=== PATIENT | female | born 1985 | race Caucasian/White ===

== ENCOUNTER 2016-11-07 23:10 | Emergency (ER) | payer MEDICARE, OTHER ==
[2016-11-07 23:37] VITALS: BP 140/79; PULSE 104; RESP 20; TEMP 98.4
[2016-11-08 01:13] LABS: Basophils # (A) 0.1 k/uL (0-0.2); Basophils % (A) 1 %; CH 29.2; CHCM 32.5; Eosinophils # (A) 0.3 k/uL (0-0.7); Eosinophils % (A) 2 %; HCT 35.6 % (34.0-46.0); HDW 2.43; HGB 11.6 gm/dL (11.4-16.0); Luc # (Auto) 0.31; Luc % (Auto) 2; Lymphocytes # (A) 4.4 k/uL (1.0-4.8); Lymphocytes % (A) 31 %; MCH 29.5 pg (25.0-35.0); MCHC 32.6 g/dL (31.0-37.0); MCV 90.5 fL (80.0-100.0); Mean Platelet Volume 6.9; Monocytes # (A) 0.6 k/uL (0-1.0); Monocytes % (A) 4 %; Neutrophils # (A) 8.5 k/uL (1.3-7.7); Neutrophils % (A) 60 %; RBC 3.94 m/uL (3.80-5.40); RDW 13.4 % (11.5-15.5); WBC 14.1 k/uL (3.8-10.6); WBC (Perox) 14.78
[2016-11-08 01:23] LABS: Anion Gap 11 mmol/L; Blood Urea Nitrogen 4 mg/dL (7-17); Calcium 9.6 mg/dL (8.4-10.2); Carbon Dioxide 21 mmol/L (22-30); Chloride 109 mmol/L (98-107); Glucose 92 mg/dL (74-99); Non-African American GFR(MDRD) >60 (>60 ml/min/1.73 sqM); Potassium 3.8 mmol/L (3.5-5.1); Sodium 141 mmol/L (137-145)
[2016-11-08] MEDS ORDERED: fentaNYL (PF) 50 MCG/ML 2 ML AMP IV ONE (01:31)
[2016-11-08 01:50] LABS: Amorphous Sediment,Urine Rare /hpf; Appearance,Urine Cloudy (Clear); Bacteria,Urine Occasional /hpf; Bilirubin,Urine Negative (Negative); Glucose,Urine (UA) Negative (Negative); Ketones,Urine Negative (Negative); Leukocyte Esterase,Urine Negative (Negative); Mucus,Urine Rare /hpf; Nitrite,Urine Negative (Negative); PH, Urine 6.5 (5.0-8.0); Particle Count 5664; Protein,Urine Negative (Negative); RBC,Urine 1 /hpf (0-5); Specific Gravity,Urine 1.004 (1.001-1.035); Squamous Epithelial Cell,Urine 8 /hpf (0-4); UA Billing (MACRO vs. MICRO) MICRO; Urobilinogen,Urine <2.0 mg/dL (<2.0); WBC,Urine 4 /hpf (0-5)
--- NOTE | 2016-11-08 01:52 | ED ---
General Adult HPI - General Chief complaint: Abdominal Pain Stated complaint: Abd pain Source: patient Mode of arrival: ambulatory Limitations: no limitations - History of Present Illness Initial comments: 31-year-old female presented for evaluation of left lower pelvic pain. She states the pain started 3-4 days ago and has been progressively worsening. She has a history of kidney stones and states this does not feel anything similar. She denies any associated dysuria, vaginal bleeding, vaginal discharge, hematuria, increased urinary frequency. It is in her left lower pelvis with patient into her back although there is no CVA tenderness. She denies any associated nausea, vomiting, fevers, chills and denies any associated abdominal pain. - Related Data Home Medications Medication Instructions Recorded Confirmed Gabapentin [Neurontin] 1 tab PO DAILY 11/07/16 11/07/16 Topiramate [Topamax] 1 tab PO DAILY 11/07/16 11/07/16 Ziprasidone HCl [Geodon] 2 tab PO DAILY 11/07/16 11/07/16 traZODone HCL [TraZODone HCl] 300 mg PO DAILY 11/07/16 11/07/16 Allergies Allergy/AdvReac Type Severity Reaction Status Date / Time latex Allergy Rash/Hives Verified 11/07/16 23:35 Review of Systems ROS Statement: Those systems with pertinent positive or pertinent negative responses have been documented in the HPI. ROS Other: All systems not noted in ROS Statement are negative. Constitutional: Denies: fever, chills Eyes: Denies: eye pain, vision change ENT: Denies: ear pain, throat pain Respiratory: Denies: cough, dyspnea Cardiovascular: Denies: chest pain, palpitations Endocrine: Denies: fatigue, polydipsia Gastrointestinal: Reports: abdominal pain. Denies: nausea, vomiting, diarrhea, constipation, hematemesis Genitourinary: Denies: urgency, dysuria Musculoskeletal: Denies: back pain, arthralgia, myalgia Skin: Denies: rash, lesions Neurological: Denies: headache, weakness Psychiatric: Denies: anxiety, depression Past Medical History History of Any Multi-Drug Resistant Organisms: None Reported Past Psychological History: Anxiety, Depression Smoking Status: Current every day smoker Past Alcohol Use History: None Reported Past Drug Use History: None Reported General Exam Limitations: no limitations General appearance: alert, in no apparent distress Head exam: Present: atraumatic, normocephalic, normal inspection Eye exam: Present: normal appearance, PERRL, EOMI. Absent: scleral icterus, conjunctival injection, periorbital swelling ENT exam: Present: normal exam, mucous membranes moist Neck exam: Present: normal inspection. Absent: tenderness, meningismus, lymphadenopathy Respiratory exam: Present: normal lung sounds bilaterally. Absent: respiratory distress, wheezes, rales, rhonchi, stridor Cardiovascular Exam: Present: regular rate, normal rhythm, normal heart sounds. Absent: systolic murmur, diastolic murmur, rubs, gallop, clicks GI/Abdominal exam: Present: soft, tenderness, normal bowel sounds. Absent: distended, guarding, rebound, rigid Rectal exam: Present: deferred Extremities exam: Present: normal inspection, full ROM, normal capillary refill. Absent: tenderness, pedal edema, joint swelling, calf tenderness Back exam: Present: normal inspection Neurological exam: Present: alert, oriented X3, CN II-XII intact Psychiatric exam: Present: normal affect, normal mood Skin exam: Present: warm, dry, intact, normal color. Absent: rash Course Vital Signs 11/07/16 23:35 Temperature 98.4 F Pulse Rate 104 H Respiratory 20 Rate Blood Pressure 140/79 O2 Sat by Pulse 98 Oximetry Medical Decision Making - Medical Decision Making 31-year-old female presented for evaluation of left lower quadrant abdominal/pelvic pain. She states she's had this pain for the last few days and that it is just progressively been worsening. She has a history of kidney stones states this does not feel similar however she denies any history of ovarian cysts. On physical examination she has tenderness to palpation in the left lower pelvis. Abdomen is soft and non-peritoneal without signs of guarding , rigidity, or rebound. There is no CVA tenderness and no flank pain. Sensation is not consistent with ureterolithiasis and is likely due to ovarian cysts. Rule out ovarian torsion. We'll obtain urinalysis, labs, and provide pain control before making decision on ultrasound versus computed tomography scan. 0144: Prior to receiving pain control and reevaluation the patient stated that she wanted to leave. She was told that she only had a couple labs remaining in that she had pain control on the way. She stated "I've already waited long enough" and that it had been two hours and nothing had been done, despite being told labs were coming and as well as pain control. IV access was removed prior to her departure and she left without signing any forms. She was advised to return if her symptoms should worsen or persist. - Lab Data Result diagrams: 11/08/16 00:55 11/08/16 00:55 Lab Results 11/08/16 11/08/16 Range/Units 00:55 00:55 WBC 14.1 H (3.8-10.6) k/uL RBC 3.94 (3.80-5.40) m/uL Hgb 11.6 (11.4-16.0) gm/dL Hct 35.6 (34.0-46.0) % MCV 90.5 (80.0-100.0) fL MCH 29.5 (25.0-35.0) pg MCHC 32.6 (31.0-37.0) g/dL RDW 13.4 (11.5-15.5) % Plt Count 360 (150-450) k/uL Neutrophils % 60 % Lymphocytes % 31 % Monocytes % 4 % Eosinophils % 2 % Basophils % 1 % Neutrophils # 8.5 H (1.3-7.7) k/uL Lymphocytes # 4.4 (1.0-4.8) k/uL Monocytes # 0.6 (0-1.0) k/uL Eosinophils # 0.3 (0-0.7) k/uL Basophils # 0.1 (0-0.2) k/uL Sodium 141 (137-145) mmol/L Potassium 3.8 (3.5-5.1) mmol/L Chloride 109 H (98-107) mmol/L Carbon Dioxide 21 L (22-30) mmol/L Anion Gap 11 mmol/L BUN 4 L (7-17) mg/dL Creatinine 0.60 (0.52-1.04) mg/dL Est GFR (MDRD) Af Amer >60 (>60 ml/min/1.73 sqM) Est GFR (MDRD) Non-Af >60 (>60 ml/min/1.73 sqM) Glucose 92 (74-99) mg/dL Calcium 9.6 (8.4-10.2) mg/dL Lipase 56 (23-300) U/L Disposition Clinical Impression: Pelvic pain Disposition: Left Against Medical Advice Condition: Stable Time of Disposition: 01:51
== END 2016-11-08 02:00 | disposition left against medical advice (07) ==
LOC: EC 23:10
DX: R10.2 Pelvic and perineal pain (principal); F32.9 Major depressive disorder, single episode, unspecified; F41.9 Anxiety disorder, unspecified; F17.200 Nicotine dependence, unspecified, uncomplicated; Z79.899 Other long term (current) drug therapy; Z91.040 Latex allergy status; Z87.442 Personal history of urinary calculi
CPT/HCPCS: 36415; 80048; 81001; 81025; 83690; 85025; 99284

== ENCOUNTER 2016-11-10 11:26 | Emergency (ER) | payer MEDICARE, OTHER ==
[2016-11-10] MEDS ORDERED: MORPHINE SULFATE 4 MG/ML SYRINGE IVP STA (11:43)
[2016-11-10] MEDS ORDERED: SODIUM CHLORIDE 0.9% 1,000 ML IV ONE (11:45)
--- NOTE | 2016-11-10 11:45 | ED ---
Abdominal Pain HPI - General Chief Complaint: Abdominal Pain Stated Complaint: Abd pain Time Seen by Provider: 11/10/16 11:36 Source: patient Mode of arrival: ambulatory Limitations: no limitations - History of Present Illness Initial Comments: This is a 31-year-old female who presents emergency department for the second time for left pelvic pain. She states it started approximately a week ago. She states is also having some vaginal spotting. She admits to some mucousy discharge this is a little bit atypical for however no discomfort with sex. No fevers or chills however she does complain of hot flashes. No nausea or vomiting. The patient has chronic diarrhea because of IBS. She states that she went to her primary doctor who ordered an outpatient ultrasound however hasn 't not been able to get the pain under control so she can emergency department. - Related Data Home Medications Medication Instructions Recorded Confirmed Gabapentin [Neurontin] 600 mg PO QID 11/07/16 11/10/16 Topiramate [Topamax] 200 mg PO DAILY 11/07/16 11/10/16 Ziprasidone HCl [Geodon] 160 mg PO DAILY 11/07/16 11/10/16 Biotin 5 mg PO DAILY 11/10/16 11/10/16 Cholecalciferol [Vitamin D3] 2,000 unit PO DAILY 11/10/16 11/10/16 Cyclobenzaprine [Flexeril] 10 mg PO TID PRN 11/10/16 11/10/16 Ferrous Sulfate [Feosol] 325 mg PO DAILY 11/10/16 11/10/16 Ibuprofen [Motrin] 800 mg PO TID PRN 11/10/16 11/10/16 Lurasidone [Latuda] 40 mg PO DAILY 11/10/16 11/10/16 Magnesium Gluconate [Magonate] 500 mg PO DAILY 11/10/16 11/10/16 Multivitamins, Thera [Multivitamin 1 tab PO DAILY 11/10/16 11/10/16 (formulary)] Turmeric Root Extract [Turmeric] 500 mg PO DAILY 11/10/16 11/10/16 Zonisamide [Zonegran] 200 mg PO DAILY 11/10/16 11/10/16 traZODone HCL 300 mg PO DAILY 11/10/16 11/10/16 Previous Rx's Medication Instructions Recorded HYDROcodone/APAP 5-325MG [Savage 1 - 2 tab PO Q6HR PRN #15 tab 11/10/16 5-325] Allergies Allergy/AdvReac Type Severity Reaction Status Date / Time latex Allergy Rash/Hives Verified 11/10/16 12:05 shellfish derived [Shellfish] Allergy Anaphylaxis Verified 11/10/16 12:05 mirtazapine [From Remeron] AdvReac Hallucinati Verified 11/10/16 12:05 ons Review of Systems ROS Statement: Those systems with pertinent positive or pertinent negative responses have been documented in the HPI. ROS Other: All systems not noted in ROS Statement are negative. Past Medical History Past Medical History: No Reported History History of Any Multi-Drug Resistant Organisms: None Reported Past Surgical History: Orthopedic Surgery Past Psychological History: Anxiety, Depression, Schizoaffective Disorder Smoking Status: Current every day smoker Past Alcohol Use History: None Reported Past Drug Use History: None Reported General Exam - General Exam Comments Initial Comments: Constitutional: Awake alert Appears comfortable Head: Normocephalic atraumatic Eyes: no conjunctival injection No scleral icterus EOMI Neck: No JVD Supple Heart: Regular rate rhythm normal S1-S2 no murmurs Lungs: Clear to auscultation bilaterally No wheezing No rales Abdomen: Soft nondistended mild tenderness to palpation the left pelvic region without rebound or guarding Extremities: Non edematous DP pulses intact Radial pulses intact Neuro: A&Ox3 No focal neurologic deficits Psych: Appropriate mood and affect Limitations: no limitations Course Vital Signs 11/10/16 11:32 Temperature 97.5 F L Pulse Rate 103 H Respiratory 20 Rate Blood Pressure 120/70 O2 Sat by Pulse 99 Oximetry Medical Decision Making - Medical Decision Making Is a 31-year-old female given for pelvic pain. Ultrasound revealed what appears to be bilateral ovarian cysts however the radiologist commented on the right and stated that it appeared to be a hemorrhagic cyst. Patient's pain was improved. I gave her [employer] follow-up with her to give her Savage that she can use as needed. She is to return if she has worsening pain or any changing in her symptoms. The rest her labwork was reviewed and unremarkable. All questions were answered. - Lab Data Result diagrams: 11/10/16 12:00 11/10/16 12:00 Lab Results 05/09/17 05/09/17 05/09/17 Range/Units 12:00 12:00 12:00 WBC 11.7 H (3.8-10.6) k/uL RBC 4.24 (3.80-5.40) m/uL Hgb 12.4 (11.4-16.0) gm/dL Hct 37.8 (34.0-46.0) % MCV 89.2 (80.0-100.0) fL MCH 29.2 (25.0-35.0) pg MCHC 32.7 (31.0-37.0) g/dL RDW 13.7 (11.5-15.5) % Plt Count 404 (150-450) k/uL Neutrophils % 64 % Lymphocytes % 28 % Monocytes % 4 % Eosinophils % 2 % Basophils % 0 % Neutrophils # 7.4 (1.3-7.7) k/uL Lymphocytes # 3.3 (1.0-4.8) k/uL Monocytes # 0.5 (0-1.0) k/uL Eosinophils # 0.3 (0-0.7) k/uL Basophils # 0.1 (0-0.2) k/uL Sodium 142 (137-145) mmol/L Potassium 4.2 (3.5-5.1) mmol/L Chloride 112 H (98-107) mmol/L Carbon Dioxide 20 L (22-30) mmol/L Anion Gap 10 mmol/L BUN 5 L (7-17) mg/dL Creatinine 0.60 (0.52-1.04) mg/dL Est GFR (MDRD) Af Amer >60 (>60 ml/min/1.73 sqM) Est GFR (MDRD) Non-Af >60 (>60 ml/min/1.73 sqM) Glucose 125 H (74-99) mg/dL Calcium 9.5 (8.4-10.2) mg/dL Urine Color Urine Appearance (Clear) Urine pH (5.0-8.0) Ur Specific [place] (1.001-1.035) Urine Protein (Negative) Urine Glucose (UA) (Negative) Urine Ketones (Negative) Urine Blood (Negative) Urine Nitrite (Negative) Urine Bilirubin (Negative) Urine Urobilinogen (<2.0) mg/dL Ur Leukocyte Esterase (Negative) Urine WBC (0-5) /hpf Ur Squamous Epith Cells (0-4) /hpf Amorphous Sediment (None) /hpf Urine Bacteria (None) /hpf Urine HCG, Qual Not Detected (Not Detectd) 11/10/16 Range/Units 12:00 WBC (3.8-10.6) k/uL RBC (3.80-5.40) m/uL Hgb (11.4-16.0) gm/dL Hct (34.0-46.0) % MCV (80.0-100.0) fL MCH (25.0-35.0) pg MCHC (31.0-37.0) g/dL RDW (11.5-15.5) % Plt Count (150-450) k/uL Neutrophils % % Lymphocytes % % Monocytes % % Eosinophils % % Basophils % % Neutrophils # (1.3-7.7) k/uL Lymphocytes # (1.0-4.8) k/uL Monocytes # (0-1.0) k/uL Eosinophils # (0-0.7) k/uL Basophils # (0-0.2) k/uL Sodium (137-145) mmol/L Potassium (3.5-5.1) mmol/L Chloride (98-107) mmol/L Carbon Dioxide (22-30) mmol/L Anion Gap mmol/L BUN (7-17) mg/dL Creatinine (0.52-1.04) mg/dL Est GFR (MDRD) Af Amer (>60 ml/min/1.73 sqM) Est GFR (MDRD) Non-Af (>60 ml/min/1.73 sqM) Glucose (74-99) mg/dL Calcium (8.4-10.2) mg/dL Urine Color Yellow Urine Appearance Turbid H (Clear) Urine pH 7.5 (5.0-8.0) Ur Specific [place] 1.009 (1.001-1.035) Urine Protein Trace H (Negative) Urine Glucose (UA) Negative (Negative) Urine Ketones Negative (Negative) Urine Blood Negative (Negative) Urine Nitrite Negative (Negative) Urine Bilirubin Negative (Negative) Urine Urobilinogen <2.0 (<2.0) mg/dL Ur Leukocyte Esterase Negative (Negative) Urine WBC 10 H (0-5) /hpf Ur Squamous Epith Cells 7 H (0-4) /hpf Amorphous Sediment Moderate H (None) /hpf Urine Bacteria Rare H (None) /hpf Urine HCG, Qual (Not Detectd) Disposition Clinical Impression: Ovarian cyst Disposition: HOME SELF-CARE Condition: Stable Prescriptions: HYDROcodone/APAP 5-325MG [Savage 5-325] 1 - 2 tab PO Q6HR PRN #15 tab PRN Reason: Pain Referrals: Leilani Limon DO [Primary Care Provider] - 1-2 days Alba De Paz MD [STAFF PHYSICIAN] - 1-2 days
[2016-11-10 12:15] LABS: Basophils # (A) 0.1 k/uL (0-0.2); Basophils % (A) 0 %; CHCM 32.7; Eosinophils # (A) 0.3 k/uL (0-0.7); Eosinophils % (A) 2 %; HCT 37.8 % (34.0-46.0); HDW 2.48; HGB 12.4 gm/dL (11.4-16.0); Luc # (Auto) 0.23; Luc % (Auto) 2; Lymphocytes # (A) 3.3 k/uL (1.0-4.8); Lymphocytes % (A) 28 %; MCH 29.2 pg (25.0-35.0); MCHC 32.7 g/dL (31.0-37.0); MCV 89.2 fL (80.0-100.0); Mean Platelet Volume 6.7; Monocytes # (A) 0.5 k/uL (0-1.0); Monocytes % (A) 4 %; Neutrophils # (A) 7.4 k/uL (1.3-7.7); Neutrophils % (A) 64 %; RBC 4.24 m/uL (3.80-5.40); RDW 13.7 % (11.5-15.5); WBC 11.7 k/uL (3.8-10.6); WBC (Perox) 12.07
[2016-11-10 12:24] LABS: Amorphous Sediment,Urine Moderate /hpf; Appearance,Urine Turbid (Clear); Bacteria,Urine Rare /hpf; Bilirubin,Urine Negative (Negative); Glucose,Urine (UA) Negative (Negative); Ketones,Urine Negative (Negative); Leukocyte Esterase,Urine Negative (Negative); Nitrite,Urine Negative (Negative); PH, Urine 7.5 (5.0-8.0); Particle Count 25620; Protein,Urine Trace (Negative); Specific Gravity,Urine 1.009 (1.001-1.035); Squamous Epithelial Cell,Urine 7 /hpf (0-4); UA Billing (MACRO vs. MICRO) MICRO; Urobilinogen,Urine <2.0 mg/dL (<2.0); WBC,Urine 10 /hpf (0-5)
[2016-11-10 12:28] LABS: Anion Gap 10 mmol/L; Calcium 9.5 mg/dL (8.4-10.2); Carbon Dioxide 20 mmol/L (22-30); Chloride 112 mmol/L (98-107); Glucose 125 mg/dL (74-99); Non-African American GFR(MDRD) >60 (>60 ml/min/1.73 sqM); Sodium 142 mmol/L (137-145)
[2016-11-10 12:31] LABS: Blood Urea Nitrogen 5 mg/dL (7-17); Potassium 4.2 mmol/L (3.5-5.1)
--- NOTE | 2016-11-10 12:52 | US ---
EXAMINATION TYPE: US transvaginal DATE OF EXAM: 11/10/2016 12:38 PM COMPARISON: NONE CLINICAL HISTORY: L pelvic pain. Left pelvic pain, IUD placement (Mirena) 07/20 TECHNIQUE: Transvaginal (TV) Date of LMP: unknown EXAM MEASUREMENTS: Uterus: 6.6 x 2.5 x 3.8 cm Endometrial Stripe: 0.5 cm Right Ovary: 3.7 x 3.2 x 3.1 cm Left Ovary: 4.2 x 2.7 x 3.8 cm Echogenic focus along the endometrium compatible with intrauterine contraceptive device 1. Uterus: Anteverted small amount of fluid within cervical canal 2. Endometrium: IUD visualized 3. Right Ovary: complex lesion = 3.0 x 2.6 x 2.5cm 4. Left Ovary: complex lesion = 3.2 x 2.2 x 2.8cm Spectral, color and waveform doppler imaging shows good arterial and venous flow within the ovaries ; there is no evidence for ovarian torsion. 5. Bilateral Adnexa: appears wnl 6. Posterior cul-de-sac: wnl Grayscale, color Doppler, spectral Doppler imaging performed of the ovaries. IMPRESSION: Complex right ovarian cyst may represent hemorrhagic cyst, consider follow-up. Intrauteri ne contraceptive device present along the endometrium.
[2016-11-10] MEDS ORDERED: HYDROcodone/APAP 5-325MG 1 EACH TAB PO STA (12:58)
[2016-11-10 13:09] VITALS: BP 103/68; PULSE 98; RESP 18; TEMP 98.1
== END 2016-11-10 13:08 | disposition home or self-care (01) ==
LOC: EC 11:26
DX: N83.201 Unspecified ovarian cyst, right side (principal); F25.9 Schizoaffective disorder, unspecified; F32.9 Major depressive disorder, single episode, unspecified; F41.9 Anxiety disorder, unspecified; F17.200 Nicotine dependence, unspecified, uncomplicated; Z79.899 Other long term (current) drug therapy; Z88.8 Allergy status to other drugs, medicaments and biological substances; Z91.040 Latex allergy status; Z91.013 Allergy to seafood
CPT/HCPCS: 36415; 80048; 85025; 81001; 81025; 93975; 76830; 99284; 96374; 96361; J2270

== ENCOUNTER 2017-01-01 10:44 | Day surgery (SDC) | payer MEDICARE, OTHER ==
[2016-12-31 09:09] VITALS: BMI 32.1
[~2017-01-01 10:44] MED LIST: LACTATED RINGERS 1,000 ML IV SCH
[2017-01-01 12:39] VITALS: TEMP 97.7
[2017-01-01] MEDS ORDERED: PROPOFOL 10 MG/ML 20 ML VIAL IV ONE (12:56)
--- NOTE | 2017-01-01 13:24 | P.PCN ---
Date of Procedure: 01/01/17 Preoperative Diagnosis: Postoperative Diagnosis: Procedure(s) Performed: BRIEF HISTORY: Patient is a 31-year-old pleasant white female, scheduled for an elective colonoscopy as a part of value should of chronic diarrhea for the last several years duration. She is been having 30-40 small frequent bowel movements with severe rectal urgency and frequency lately. PROCEDURE PERFORMED: Colonoscopy with biopsy. PREOPERATIVE DIAGNOSIS: Chronic diarrhea of several months duration. IV sedation per Anesthesia. PROCEDURE: After informed consent was obtained, the patient, was brought into the endoscopy unit. IV sedation was administered by Anesthesia under continuous monitoring. Digital rectal examination was normal. Initially the Olympus CF- 160 flexible video colonoscope was then inserted in the rectum, gradually advanced into the cecum without any difficulty. Careful examination was performed as the scope was gradually being withdrawn. Ileocecal valve and the appendiceal orifice were visualized and appeared normal. Terminal ileum was intubated and 20 cm visualized and appeared normal. Random biopsies were done from this area. Prep was excellent. Mucosa of the cecum, ascending colon, transverse colon, descending colon, sigmoid colon, and rectum appeared normal. Random Garcia's biopsies were done from the ascending and descending colon to rule out microscopic/collagenous colitis. Retroflexion was performed in the rectum and no lesions were seen. The patient tolerated the procedure well. IMPRESSION: Normal-appearing colon from rectum to cecum with no evidence of colitis or colorectal neoplasia . Normal-appearing terminal ileum. RECOMMENDATIONS: Findings of this examination were discussed with the patient as well as her family. She was advised to follow with the biopsy results. She' ll be seen in office in 2-3 weeks.. Implants: Indications for Procedure: Operative Findings: Description of Procedure:
[2017-01-01 13:38] VITALS: RESP 18
[2017-01-01 14:05] VITALS: PULSE 82
[2017-01-01 14:23] VITALS: BP 106/62
== END 2017-01-01 14:36 | disposition home or self-care (01) ==
LOC: ORWHC2ENDO 10:44
PROVIDERS: ATTEND Internal Medicine Gastroenterology
DX: K52.839 Microscopic colitis, unspecified (principal); R19.4 Change in bowel habit; K58.0 Irritable bowel syndrome with diarrhea; F17.200 Nicotine dependence, unspecified, uncomplicated; Z79.1 Long term (current) use of non-steroidal anti-inflammatories (NSAID); Z79.899 Other long term (current) drug therapy; Z91.040 Latex allergy status; Z91.09 Other allergy status, other than to drugs and biological substances; Z88.8 Allergy status to other drugs, medicaments and biological substances; Z91.013 Allergy to seafood
CPT/HCPCS: 81025; 88305; 88313; 45380; J2704

== ENCOUNTER 2019-04-26 21:32 | Emergency (ER) | payer MEDICARE, OTHER ==
[2019-04-26 21:38] VITALS: BP 123/84; PULSE 102; RESP 18; TEMP 98.1
[2019-04-26] MEDS ORDERED: predniSONE 20 MG TAB PO STA (21:50)
[2019-04-26] MEDS ORDERED: AMOXIC-POT CLAV 875MG STARTER 2 EACH TABLET PO STA (21:50)
--- NOTE | 2019-04-26 21:51 | ED ---
URI HPI - General Chief Complaint: Upper Respiratory Infection Stated Complaint: poss sinus infection Time Seen by Provider: 04/26/19 21:46 Source: patient, RN notes reviewed Mode of arrival: ambulatory Limitations: no limitations - History of Present Illness Initial Comments: 33-year-old female presents emergency from chief complaint of sinus congestion. Patient states she has been sick for last 4-5 days. Patient registered shot by PCP and states that she was better for a day but worsened after that. Patient reports facial pressure, worse when she leans over, purulent nasal drainage and a cough which is productive in the morning no chest pain no shortness breath at this time. She's been taking [id number] medications minimal relief. - Related Data Home Medications Medication Instructions Recorded Confirmed Gabapentin [Neurontin] 600 mg PO QID 11/07/16 06/23/17 Topiramate [Topamax] 200 mg PO HS 11/07/16 06/23/17 Cholecalciferol [Vitamin D3] 4,000 unit PO DAILY 11/10/16 06/23/17 Cyclobenzaprine [Flexeril] 10 mg PO TID PRN 11/10/16 06/23/17 Ferrous Sulfate [Feosol] 325 mg PO BID 11/10/16 06/23/17 Magnesium Gluconate [Magonate] 500 mg PO BID 11/10/16 06/23/17 Multivitamins, Thera [Multivitamin 1 tab PO BID 11/10/16 06/23/17 (formulary)] Turmeric Root Extract [Turmeric] 1,000 mg PO DAILY 11/10/16 06/23/17 Zonisamide [Zonegran] 200 mg PO HS 11/10/16 06/23/17 traZODone HCL 300 mg PO HS 11/10/16 06/23/17 Meloxicam [Mobic] 7.5 mg PO BID 12/31/16 06/23/17 Biotin 10,000 mcg PO DAILY 06/09/17 06/23/17 Lurasidone HCl [Latuda] 60 mg PO HS 06/09/17 06/23/17 Budesonide [Budesonide EC] 6 mg PO DAILY 06/17/17 06/23/17 DULoxetine HCL [Cymbalta] 30 mg PO DAILY 06/17/17 06/23/17 Morphine Sulfate 15 mg PO TID 06/17/17 06/23/17 OXcarbazepine [Trileptal] 300 mg PO BID 06/17/17 06/23/17 HYDROcodone/APAP 7.5-325MG [[place] 1 tab PO Q4H PRN 06/23/17 06/23/17 7.5] Previous Rx's Medication Instructions Recorded Ondansetron Odt [Zofran ODT] 4 mg PO Q8HR PRN #20 tab 06/09/17 Docusate [Colace] 100 mg PO BID #20 capsule 06/18/17 Amoxicillin/Potassium Clav 1 tab PO Q12HR #20 tab 04/26/19 [Augmentin 875-125 Tablet] predniSONE 50 mg PO DAILY #5 tab 04/26/19 Allergies Allergy/AdvReac Type Severity Reaction Status Date / Time Iodinated Contrast Media Allergy Anaphylaxis Verified 06/23/17 12:13 [Iodinated Contrast Media - Oral and] latex Allergy Rash/Hives Verified 06/23/17 12:13 shellfish derived [Shellfish] Allergy Anaphylaxis Verified 06/23/17 12:13 mirtazapine [From Remeron] AdvReac Hallucinati Verified 06/23/17 12:13 ons Review of Systems ROS Statement: Those systems with pertinent positive or pertinent negative responses have been documented in the HPI. ROS Other: All systems not noted in ROS Statement are negative. Past Medical History Past Medical History: Osteoarthritis (OA) Additional Past Medical History / Comment(s): IBS, colitis. 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 History of Any Multi-Drug Resistant Organisms: None Reported Past Surgical History: Cholecystectomy, Orthopedic Surgery Additional Past Surgical History / Comment(s): ORIF RT HAND. MIRENA INSERTION, pain procedures. Past Anesthesia/Blood Transfusion Reactions: No Reported Reaction Past Psychological History: Anxiety, Depression, Schizoaffective Disorder Smoking Status: Current every day smoker Past Alcohol Use History: Occasional Past Drug Use History: None Reported - Past Family History Mother Family Medical History: Unable to Obtain Additional Family Medical History / Comment(s): Patient states does not any history of her family. General Exam Limitations: no limitations General appearance: alert, in no apparent distress Head exam: Present: atraumatic, normocephalic, normal inspection Eye exam: Present: normal appearance, PERRL, EOMI. Absent: scleral icterus, conjunctival injection, periorbital swelling ENT exam: Present: mucous membranes moist, TM's normal bilaterally. Absent: normal exam (Bilateral maxillary sinus tenderness), normal oropharynx (Postnasal drainage) Neck exam: Present: normal inspection, full ROM. Absent: tenderness, meningismus, lymphadenopathy Respiratory exam: Present: normal lung sounds bilaterally. Absent: respiratory distress, wheezes, rales, rhonchi, stridor Cardiovascular Exam: Present: regular rate, normal rhythm, normal heart sounds. Absent: systolic murmur, diastolic murmur, rubs, gallop, clicks GI/Abdominal exam: Present: soft, normal bowel sounds. Absent: distended, tenderness, guarding, rebound, rigid Course Vital Signs 04/26/19 21:35 Temperature 98.1 F Pulse Rate 102 H Respiratory 18 Rate Blood Pressure 123/84 O2 Sat by Pulse 97 Oximetry Medical Decision Making - Medical Decision Making 33-year-old female has acute sinusitis was treated with Augmentin, prednisone. Patient we discharged return parameters were discussed [id number] medication discussed. Disposition Clinical Impression: Sinusitis Disposition: HOME SELF-CARE Condition: Stable Instructions (If sedation given, give patient instructions): Upper Respiratory Infection (ED) Additional Instructions: Please return to the Emergency Department if symptoms worsen or any other concerns. Prescriptions: Amoxicillin/Potassium Clav [Augmentin 875-125 Tablet] 1 tab PO Q12HR #20 tab predniSONE 50 mg PO DAILY #5 tab Is patient prescribed a controlled substance at d/c from ED?: No Referrals: Leilani Limon DO [Primary Care Provider] - 1-2 days Time of Disposition: 21:51
== END 2019-04-26 22:05 | disposition home or self-care (01) ==
LOC: EC 21:32
DX: J01.90 Acute sinusitis, unspecified (principal); M19.90 Unspecified osteoarthritis, unspecified site; F32.9 Major depressive disorder, single episode, unspecified; F41.9 Anxiety disorder, unspecified; F25.9 Schizoaffective disorder, unspecified; F17.200 Nicotine dependence, unspecified, uncomplicated; Z88.8 Allergy status to other drugs, medicaments and biological substances; Z91.013 Allergy to seafood; Z91.040 Latex allergy status; Z91.041 Radiographic dye allergy status; Z79.1 Long term (current) use of non-steroidal anti-inflammatories (NSAID); Z79.52 Long term (current) use of systemic steroids; Z79.891 Long term (current) use of opiate analgesic; Z79.899 Other long term (current) drug therapy
CPT/HCPCS: 99283; J7512

== ENCOUNTER 2021-04-11 10:39 | Emergency (ER) | payer MEDICARE, OTHER ==
[2021-04-11 10:44] VITALS: RESP 20; TEMP 98.1
--- NOTE | 2021-04-11 11:45 | ED ---
General Adult HPI - General Chief complaint: Nausea/Vomiting/Diarrhea Stated complaint: vomiting/headache/kidney stone Time Seen by Provider: 04/11/21 11:29 Source: patient Mode of arrival: ambulatory Limitations: no limitations - History of Present Illness Initial comments: Patient is a 35 -year-old female presenting the ED every pain per kidney stone t hat has been present for 2 weeks. Patient states that for the past 2 weeks patient has been nauseous vomiting and severe pain bilaterally with flank tenderness. Patient states that she had scan that showed kidney stones one week prior at [place]. Patient is describes extreme discomfort. An voices not being able to keep down any of her at home pain medications for the pain. Patient states she has not been able to urinate since yesterday morning. Patient denies any fever, headache. - Related Data Home Medications Medication Instructions Recorded Confirmed Gabapentin [Neurontin] 600 mg PO QID 11/07/16 06/23/17 Topiramate [Topamax] 200 mg PO HS 11/07/16 06/23/17 Cholecalciferol [Vitamin D3] 4,000 unit PO DAILY 11/10/16 06/23/17 Cyclobenzaprine [Flexeril] 10 mg PO TID PRN 11/10/16 06/23/17 Ferrous Sulfate [Feosol] 325 mg PO BID 11/10/16 06/23/17 Magnesium Gluconate [Magonate] 500 mg PO BID 11/10/16 06/23/17 Multivitamins, Thera [Multivitamin 1 tab PO BID 11/10/16 06/23/17 (formulary)] Turmeric Root Extract [Turmeric] 1,000 mg PO DAILY 11/10/16 06/23/17 Zonisamide [Zonegran] 200 mg PO HS 11/10/16 06/23/17 traZODone HCL 300 mg PO HS 11/10/16 06/23/17 Meloxicam [Mobic] 7.5 mg PO BID 12/31/16 06/23/17 Biotin 10,000 mcg PO DAILY 06/09/17 06/23/17 Lurasidone HCl [Latuda] 60 mg PO HS 06/09/17 06/23/17 Budesonide [Budesonide EC] 6 mg PO DAILY 06/17/17 06/23/17 DULoxetine HCL [Cymbalta] 30 mg PO DAILY 06/17/17 06/23/17 Morphine Sulfate 15 mg PO TID 06/17/17 06/23/17 OXcarbazepine [Trileptal] 300 mg PO BID 06/17/17 06/23/17 HYDROcodone/APAP 7.5-325MG [Lynco 1 tab PO Q4H PRN 06/23/17 06/23/17 7.5] Previous Rx's Medication Instructions Recorded Ondansetron Odt [Zofran ODT] 4 mg PO Q8HR PRN #20 tab 06/09/17 Docusate [Colace] 100 mg PO BID #20 capsule 06/18/17 Amoxicillin/Potassium Clav 1 tab PO Q12HR #20 tab 04/26/19 [Augmentin 875-125 Tablet] predniSONE 50 mg PO DAILY #5 tab 04/26/19 Allergies Allergy/AdvReac Type Severity Reaction Status Date / Time Iodinated Contrast Media Allergy Anaphylaxis Verified 04/11/21 10:43 [Iodinated Contrast Media - Oral and] latex Allergy Rash/Hives Verified 04/11/21 10:43 shellfish derived [Shellfish] Allergy Anaphylaxis Verified 04/11/21 10:43 mirtazapine [From Remeron] AdvReac Hallucinati Verified 04/11/21 10:43 ons Review of Systems ROS Statement: Those systems with pertinent positive or pertinent negative responses have been documented in the HPI. ROS Other: All systems not noted in ROS Statement are negative. Past Medical History Past Medical History: Osteoarthritis (OA) Additional Past Medical History / Comment(s): IBS, colitis. 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 History of Any Multi-Drug Resistant Organisms: None Reported Past Surgical History: Cholecystectomy, Orthopedic Surgery Additional Past Surgical History / Comment(s): ORIF RT HAND. MIRENA INSERTION, pain procedures. Past Anesthesia/Blood Transfusion Reactions: No Reported Reaction Past Psychological History: Anxiety, Depression, Schizoaffective Disorder Smoking Status: Former smoker Past Alcohol Use History: Occasional Past Drug Use History: Marijuana - Past Family History Mother Family Medical History: Unable to Obtain Additional Family Medical History / Comment(s): Patient states does not any history of her family. General Exam Limitations: no limitations General appearance: alert, in distress (pain) Respiratory exam: Present: normal lung sounds bilaterally. Absent: respiratory distress, wheezes, rales, rhonchi, stridor Cardiovascular Exam: Present: regular rate, normal rhythm, normal heart sounds. Absent: systolic murmur, diastolic murmur, rubs, gallop, clicks GI/Abdominal exam: Present: soft, normal bowel sounds. Absent: distended, tenderness, guarding, rebound, rigid Back exam: Present: CVA tenderness (R), CVA tenderness (L) Skin exam: Present: warm, dry, intact, normal color. Absent: rash Course Vital Signs 04/11/21 04/11/21 10:40 12:58 Temperature 98.1 F Pulse Rate 95 90 Respiratory 20 20 Rate Blood Pressure 121/79 114/77 O2 Sat by Pulse 100 98 Oximetry Medical Decision Making - Medical Decision Making CT is unremarkable patient presented for bilateral flank. There is no obvious reason for this flank pain. Patient discharged in stable condition return parameters were discussed. - Lab Data Result diagrams: 04/11/21 12:29 04/11/21 12:29 Lab Results 04/11/21 04/11/21 04/11/21 Range/Units 12:29 12:29 12:29 WBC 13.7 H (3.8-10.6) k/uL RBC 4.82 (3.80-5.40) m/uL Hgb 12.7 (11.4-16.0) gm/dL Hct 39.8 (34.0-46.0) % MCV 82.6 (80.0-100.0) fL MCH 26.4 (25.0-35.0) pg MCHC 32.0 (31.0-37.0) g/dL RDW 15.1 (11.5-15.5) % Plt Count 450 (150-450) k/uL MPV 6.9 Neutrophils % 62 % Lymphocytes % 31 % Monocytes % 4 % Eosinophils % 2 % Basophils % 0 % Neutrophils # 8.4 H (1.3-7.7) k/uL Lymphocytes # 4.2 (1.0-4.8) k/uL Monocytes # 0.6 (0-1.0) k/uL Eosinophils # 0.3 (0-0.7) k/uL Basophils # 0.1 (0-0.2) k/uL Sodium 137 (137-145) mmol/L Potassium 4.3 (3.5-5.1) mmol/L Chloride 103 (98-107) mmol/L Carbon Dioxide 28 (22-30) mmol/L Anion Gap 6 mmol/L BUN 5 L (7-17) mg/dL Creatinine 0.42 L (0.52-1.04) mg/dL Est GFR (CKD-EPI)AfAm >90 (>60 ml/min/1.73 sqM) Est GFR (CKD-EPI)NonAf >90 (>60 ml/min/1.73 sqM) Glucose 103 H (74-99) mg/dL Plasma Lactic Acid Martín 0.8 (0.7-2.0) mmol/L Calcium 9.9 (8.4-10.2) mg/dL Total Bilirubin 0.4 (0.2-1.3) mg/dL AST 35 (14-36) U/L ALT 56 H (4-34) U/L Alkaline Phosphatase 80 (38-126) U/L Total Protein 7.1 (6.3-8.2) g/dL Albumin 3.9 (3.5-5.0) g/dL Amylase 51 (30-110) U/L Lipase 26 (23-300) U/L Urine Color Urine Appearance (Clear) Urine pH (5.0-8.0) Ur Specific Isabel (1.001-1.035) Urine Protein (Negative) Urine Glucose (UA) (Negative) Urine Ketones (Negative) Urine Blood (Negative) Urine Nitrite (Negative) Urine Bilirubin (Negative) Urine Urobilinogen (<2.0) mg/dL Ur Leukocyte Esterase (Negative) Urine HCG, Qual (Not Detectd) 04/11/21 04/11/21 Range/Units 12:50 12:50 WBC (3.8-10.6) k/uL RBC (3.80-5.40) m/uL Hgb (11.4-16.0) gm/dL Hct (34.0-46.0) % MCV (80.0-100.0) fL MCH (25.0-35.0) pg MCHC (31.0-37.0) g/dL RDW (11.5-15.5) % Plt Count (150-450) k/uL MPV Neutrophils % % Lymphocytes % % Monocytes % % Eosinophils % % Basophils % % Neutrophils # (1.3-7.7) k/uL Lymphocytes # (1.0-4.8) k/uL Monocytes # (0-1.0) k/uL Eosinophils # (0-0.7) k/uL Basophils # (0-0.2) k/uL Sodium (137-145) mmol/L Potassium (3.5-5.1) mmol/L Chloride (98-107) mmol/L Carbon Dioxide (22-30) mmol/L Anion Gap mmol/L BUN (7-17) mg/dL Creatinine (0.52-1.04) mg/dL Est GFR (CKD-EPI)AfAm (>60 ml/min/1.73 sqM) Est GFR (CKD-EPI)NonAf (>60 ml/min/1.73 sqM) Glucose (74-99) mg/dL Plasma Lactic Acid Martín (0.7-2.0) mmol/L Calcium (8.4-10.2) mg/dL Total Bilirubin (0.2-1.3) mg/dL AST (14-36) U/L ALT (4-34) U/L Alkaline Phosphatase (38-126) U/L Total Protein (6.3-8.2) g/dL Albumin (3.5-5.0) g/dL Amylase (30-110) U/L Lipase (23-300) U/L Urine Color Light Yellow Urine Appearance Clear (Clear) Urine pH 7.5 (5.0-8.0) Ur Specific Isabel 1.005 (1.001-1.035) Urine Protein Negative (Negative) Urine Glucose (UA) Negative (Negative) Urine Ketones Negative (Negative) Urine Blood Negative (Negative) Urine Nitrite Negative (Negative) Urine Bilirubin Negative (Negative) Urine Urobilinogen <2.0 (<2.0) mg/dL Ur Leukocyte Esterase Negative (Negative) Urine HCG, Qual Not Detected (Not Detectd) Disposition Clinical Impression: Flank pain, Nausea & vomiting Disposition: HOME SELF-CARE Condition: Stable Instructions (If sedation given, give patient instructions): Acute Nausea and Vomiting (ED) Additional Instructions: Please return to the Emergency Department if symptoms worsen or any other concerns. Is patient prescribed a controlled substance at d/c from ED?: No Referrals: Leilani Limon DO [Primary Care Provider] - 1-2 days Time of Disposition: 14:08
[2021-04-11] MEDS ORDERED: SODIUM CHLORIDE 0.9% 1,000 ML IV STA (11:48)
[2021-04-11] MEDS ORDERED: ONDANSETRON 4 MG/2 ML VIAL IVP STA (11:48)
[2021-04-11] MEDS ORDERED: HYDROmorphone 0.5 MG/0.5 ML SYRINGE IVP STA (11:48)
[2021-04-11 12:49] LABS: Basophils # (A) 0.1 k/uL (0-0.2); Basophils % (A) 0 %; Eosinophils # (A) 0.3 k/uL (0-0.7); Eosinophils % (A) 2 %; HCT 39.8 % (34.0-46.0); HGB 12.7 gm/dL (11.4-16.0); Lymphocytes # (A) 4.2 k/uL (1.0-4.8); Lymphocytes % (A) 31 %; MCH 26.4 pg (25.0-35.0); MCV 82.6 fL (80.0-100.0); Mean Platelet Volume 6.9; Monocytes # (A) 0.6 k/uL (0-1.0); Monocytes % (A) 4 %; Neutrophils # (A) 8.4 k/uL (1.3-7.7); Neutrophils % (A) 62 %; Platelet Count 450 k/uL (150-450); RBC 4.82 m/uL (3.80-5.40); RDW 15.1 % (11.5-15.5); WBC 13.7 k/uL (3.8-10.6)
[2021-04-11 13:01] LABS: ALT 56 U/L (4-34); AST 35 U/L (14-36); African American GFR (CKD) >90 (>60 ml/min/1.73 sqM); Albumin 3.9 g/dL (3.5-5.0); Alkaline Phosphatase 80 U/L (38-126); Amylase 51 U/L (30-110); Anion Gap 6 mmol/L; Blood Urea Nitrogen 5 mg/dL (7-17); Calcium 9.9 mg/dL (8.4-10.2); Carbon Dioxide 28 mmol/L (22-30); Chloride 103 mmol/L (98-107); Glucose 103 mg/dL (74-99); Lipase 26 U/L (23-300); Non-African American GFR(CKD) >90 (>60 ml/min/1.73 sqM); Potassium 4.3 mmol/L (3.5-5.1); Sodium 137 mmol/L (137-145); Total Bilirubin 0.4 mg/dL (0.2-1.3); Total Protein 7.1 g/dL (6.3-8.2)
[2021-04-11 13:27] LABS: Appearance,Urine Clear (Clear); Bilirubin,Urine Negative (Negative); Blood,Urine Negative (Negative); Color,Urine Light Yellow; Glucose,Urine (UA) Negative (Negative); Ketones,Urine Negative (Negative); Leukocyte Esterase,Urine Negative (Negative); Nitrite,Urine Negative (Negative); PH, Urine 7.5 (5.0-8.0); Protein,Urine Negative (Negative); Specific Gravity,Urine 1.005 (1.001-1.035); Urobilinogen,Urine <2.0 mg/dL (<2.0)
--- NOTE | 2021-04-11 14:02 | CT ---
EXAMINATION TYPE: CT abdomen pelvis wo con DATE OF EXAM: 04/11/2021 COMPARISON: None HISTORY: bilateral flank pain, known renal stones, nausea, vomiting CT DLP: 1098.4 mGycm Automated exposure control for dose reduction was used. TECHNIQUE: Helical acquisition of images was performed from the lung bases through the pelvis. FINDINGS: LUNG BASES: Subsegmental bibasilar linear changes. LIVER/GB: Liver low in attenuation correlate for hepatic steatosis. Postcholecystectomy changes noted . PANCREAS: No significant abnormality is seen. SPLEEN: No significant abnormality is seen. ADRENALS: No significant abnormality is seen. KIDNEYS: 4 mm lower pole left renal calculus noted. ADENOPATHY: None visualized. OSSEOUS STRUCTURES: No significant abnormality is seen. BOWEL: Bowel gas pattern nonspecific. No evidence of obstruction.. OTHER: Intrauterine device noted. There is soft tissue fullness in the adnexal regions likely related to normal ovaries. No free fluid. Aorta of normal caliber. IMPRESSION: 1. Nonobstructing 4 mm lower pole left renal calculus. 2. Correlate for hepatocellular disease or hepatic steatosis. 3. Bibasilar atelectasis favored over infiltrate correlate clinically.
[2021-04-11] MEDS ORDERED: METOCLOPRAMIDE 5 MG/ML 2 ML VIAL IVP STA (14:21)
[2021-04-11 14:37] VITALS: BP 106/66; PULSE 85
== END 2021-04-11 15:01 | disposition home or self-care (01) ==
LOC: EC 10:39
DX: R11.2 Nausea with vomiting, unspecified (principal); R10.9 Unspecified abdominal pain; M19.90 Unspecified osteoarthritis, unspecified site; F32.9 Major depressive disorder, single episode, unspecified; F41.9 Anxiety disorder, unspecified; F25.9 Schizoaffective disorder, unspecified; F12.90 Cannabis use, unspecified, uncomplicated; Z87.891 Personal history of nicotine dependence; Z79.1 Long term (current) use of non-steroidal anti-inflammatories (NSAID); Z79.52 Long term (current) use of systemic steroids; Z79.899 Other long term (current) drug therapy; Z90.49 Acquired absence of other specified parts of digestive tract
CPT/HCPCS: 36415; 80053; 82150; 83605; 83690; 85025; 81003; 81025; 74176; 99284; 96374; 96375 ×2; 96361 ×2; J2765; J2405; J1170

== ENCOUNTER 2022-10-02 10:06 | Observation (INO) | payer MEDICARE, OTHER ==
[2022-10-02] MEDS ORDERED: ONDANSETRON 4 MG/2 ML VIAL IVP STA ×2 (10:53→14:11)
[2022-10-02] MEDS ORDERED: FAMOTIDINE 20 MG/2 ML VIAL IV STA (10:53)
[2022-10-02] MEDS ORDERED: SODIUM CHLORIDE 0.9% 1,000 ML IV STA (10:53)
--- NOTE | 2022-10-02 11:06 | ED ---
Abdominal Pain HPI - General Chief Complaint: Abdominal Pain Stated Complaint: vomiting Time Seen by Provider: 10/02/22 10:07 Source: patient, RN notes reviewed Mode of arrival: ambulatory - History of Present Illness Initial Comments: This is a 36-year-old female who presents to the emergency department for nausea, vomiting, and epigastric pain 3 days. States that she has had problems with intractable nausea and vomiting in the past and they can never figure out why this occurs. She does report regular marijuana use. Denies any changes in bowel or bladder habits. Also denies any sick contacts. Denies any fevers, chills, sore throat, cough, dyspnea, chest pain, palpitations, diarrhea, or back pain. MD Complaint: abdominal pain Onset/Timin -: days(s) Location: epigastric Associated Symptoms: nausea, vomiting - Related Data Home Medications Medication Instructions Recorded Confirmed DULoxetine HCL [Cymbalta] 30 mg PO HS 06/17/17 10/02/22 Atorvastatin [Lipitor] 20 mg PO HS 10/02/22 10/02/22 Budesonide/Formoterol Fumarate 2 puff INHALATION RT-BID 10/02/22 10/02/22 [Symbicort 160-4.5 Mcg Inhaler] Cariprazine HCl [Vraylar] 6 mg PO DAILY 10/02/22 10/02/22 Dicyclomine [Bentyl] 10 mg PO DAILY 10/02/22 10/02/22 Dulaglutide [Trulicity] 3 mg SQ TU 10/02/22 10/02/22 EPINEPHrine (Auto Inject) [Epipen] 0.3 mg IM ONCE PRN 10/02/22 10/02/22 Gabapentin 800 mg PO QID 10/02/22 10/02/22 Ibuprofen [Motrin] 800 mg PO Q8H PRN 10/02/22 10/02/22 Montelukast [Singulair] 10 mg PO DAILY 10/02/22 10/02/22 Omeprazole 40 mg PO DAILY 10/02/22 10/02/22 Ondansetron Odt [Zofran ODT] 4 mg PO Q8H PRN 10/02/22 10/02/22 QUEtiapine FUMARATE [SEROquel] 25 mg PO DAILY 10/02/22 10/02/22 QUEtiapine XR [SEROquel XR] 50 mg PO HS 10/02/22 10/02/22 QUEtiapine XR [SEROquel XR] 200 mg PO HS 10/02/22 10/02/22 Topiramate [Topamax] 50 mg PO HS 10/02/22 10/02/22 Ubrogepant [Ubrelvy] 100 mg PO Q2D@2100 10/02/22 10/02/22 lisinopriL 2.5 mg PO DAILY 10/02/22 10/02/22 metFORMIN HCL [Glucophage] 500 mg PO DAILY 10/02/22 10/02/22 oxyCODONE-APAP 10-325MG [Percocet 1 tab PO QID 10/02/22 10/02/22 10-325 mg] Allergies Allergy/AdvReac Type Severity Reaction Status Date / Time Iodinated Contrast Media Allergy Anaphylaxis Verified 10/02/22 13:55 [Iodinated Contrast Media - Oral and] latex Allergy Rash/Hives Verified 10/02/22 13:55 shellfish derived [Shellfish] Allergy Anaphylaxis Verified 10/02/22 13:55 mirtazapine [From Remeron] AdvReac Hallucinati Verified 10/02/22 13:55 ons Review of Systems ROS Statement: Those systems with pertinent positive or pertinent negative responses have been documented in the HPI. ROS Other: All systems not noted in ROS Statement are negative. Past Medical History Past Medical History: Osteoarthritis (OA) Additional Past Medical History / Comment(s): IBS, colitis. 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 History of Any Multi-Drug Resistant Organisms: None Reported Past Surgical History: Cholecystectomy, Orthopedic Surgery Additional Past Surgical History / Comment(s): ORIF RT HAND. MIRENA INSERTION, pain procedures. Past Anesthesia/Blood Transfusion Reactions: No Reported Reaction Past Psychological History: Anxiety, Depression, Schizoaffective Disorder Smoking Status: Former smoker Past Alcohol Use History: Occasional Past Drug Use History: Marijuana - Past Family History Mother Family Medical History: Unable to Obtain Additional Family Medical History / Comment(s): Patient states does not any history of her family. General Exam Limitations: no limitations General appearance: alert, in distress Head exam: Present: atraumatic, normocephalic, normal inspection Respiratory exam: Present: normal lung sounds bilaterally. Absent: respiratory distress, wheezes, rales, rhonchi, stridor Cardiovascular Exam: Present: regular rate, normal rhythm, normal heart sounds. Absent: systolic murmur, diastolic murmur, rubs, gallop, clicks GI/Abdominal exam: Present: soft, tenderness (epigastric), normal bowel sounds. Absent: distended Neurological exam: Present: alert, oriented X3, CN II-XII intact Psychiatric exam: Present: normal affect, normal mood Skin exam: Present: warm, dry, intact, normal color. Absent: rash Course Vital Signs 10/02/22 10/02/22 10/02/22 10:14 13:44 13:47 Temperature 97.5 F L Pulse Rate 97 80 Respiratory 18 18 Rate Blood Pressure 129/83 130/93 O2 Sat by Pulse 98 99 Oximetry Medical Decision Making - Medical Decision Making This is a 36-year-old female who presents to the emergency department for nausea, vomiting, and abdominal pain. Was pt. sent in by a medical professional or institution? @ -No Did you speak to anyone other than the patient for history? @ -No Did you review nursing and triage notes? @ -Yes, and I agree, it is accurate with regards to the patient's symptoms. Were old charts reviewed? @ -No Differential Diagnosis? @ -Differential Abdominal Pain Women: Appendicitis, Cholecystitis, diverticulosis, ischemic bowel, pancreatitis, hepatitis, UTI, gastroenteritis, AAA, incarcerated hernia, bowel obstruction, constipation, inflammatory bowel, hepatitis, peptic ulcer disease, splenic infarction, perforated viscus, vulvitis, ovarian torsion, PID, kidney stone, placenta abruption, this is not meant to be an all-inclusive list CT interpreted by me (1pt min.)? @ -Computed tomography scan of the abdomen and pelvis obtained. My interpretation identifies no evidence of bowel wall thickening, ureteral calculus, or free air. What testing was considered but not performed? (CT, X-rays, U/S, labs)? Why? @ -None What meds were considered but not given? Why? @ -None Did you discuss the management of the patient with other professionals? @ -Yes, Dr. Alberts, who accepts the patient for admission. Did you reconcile home meds? @ -No Was smoking cessation discussed for >3mins.? @ -No Was critical care preformed (if so, how long)? @ -No Were there social determinants of health that impacted care today? How? (Homelessness, low income, unemployed, alcoholism, drug addiction, transportation, low edu. Level, literacy, decrease access to med. care, care home, rehab)? @ -No Was there de-escalation of care discussed even if they declined? (Discuss DNR or withdrawal of care, Hospice)? @ -No What co-morbidities impacted this encounter? (DM, HTN, Smoking, COPD, CAD, Cancer, CVA, Hep., AIDS, mental health diagnosis, sleep apnea, morbid obesity)? @ -IBS, colitis, obesity, pseudotumor cerebri Was patient admitted / discharged? @ -Admitted. Lab work obtained revealing leukocytosis. This may be reactive or related to an infectious process. Lactic acid elevated as well, likely related to dehydration. Patient was initially given IV fluids, Zofran, and Pepcid, with no relief in emesis. She was subsequently given Reglan. Reglan offered more improvement to her symptoms, however she continued to have episodes of emesis. Following the Reglan, Compazine and Benadryl were administered. This offered t emporary improvement, however her symptoms then returned. Haldol was given next. Again, this offered temporary relief to her symptoms. Following the Haldol, she was given another dose of Zofran with Ativan, and she was able to fall asleep, at which time the vomiting improved. Given the severity of her symptoms with associated leukocytosis, computed tomography scan of the abdomen and pelvis was obtained. Computed tomography scan of the abdomen and pelvis reveals no acute findings to account for the patient's symptoms. This is most likely related to viral gastroenteritis or a cannabinoid hyperemesis syndrome. Given the intractable nausea and vomiting that has been very difficult to contr ol, will admit patient to medicine for further management. Undiagnosed new problem with uncertain prognosis? @ -None Drug Therapy requiring intensive monitoring for toxicity (Heparin, Nitro, Insulin, Cardizem)? @ -None Were any procedures done? @ -None Diagnosis/symptom? @ -Intractable nausea and vomiting Acute, or Chronic, or Acute on Chronic? @ -Acute Uncomplicated (without systemic symptoms) or Complicated (systemic symptoms)? @ -Complicated Side effects of treatment? @ -None Exacerbation, Progression, or Severe Exacerbation] @ -Not applicable Poses a threat to life or bodily function? @ -Yes This case was discussed in detail with the attending ED physician, Dr. Tran. Presentation, findings, and treatment plan discussed in detail as well. - Lab Data Result diagrams: 10/02/22 11:23 10/02/22 11:23 Lab Results 10/02/22 10/02/22 10/02/22 Range/Units 11:23 11:23 11:23 WBC 22.4 H (3.8-10.6) k/uL RBC 5.04 (3.80-5.40) m/uL Hgb 14.6 (11.4-16.0) gm/dL Hct 43.0 (34.0-46.0) % MCV 85.3 (80.0-100.0) fL MCH 28.9 (25.0-35.0) pg MCHC 33.9 (31.0-37.0) g/dL RDW 15.5 (11.5-15.5) % Plt Count 577 H (150-450) k/uL MPV 7.5 Neutrophils % 79 % Lymphocytes % 16 % Monocytes % 3 % Eosinophils % 1 % Basophils % 0 % Neutrophils # 17.7 H (1.3-7.7) k/uL Lymphocytes # 3.6 (1.0-4.8) k/uL Monocytes # 0.6 (0-1.0) k/uL Eosinophils # 0.2 (0-0.7) k/uL Basophils # 0.1 (0-0.2) k/uL Sodium (137-145) mmol/L Potassium (3.5-5.1) mmol/L Chloride (98-107) mmol/L Carbon Dioxide (22-30) mmol/L Anion Gap mmol/L BUN (7-17) mg/dL Creatinine (0.52-1.04) mg/dL Est GFR (CKD-EPI)AfAm (>60 ml/min/1.73 sqM) Est GFR (CKD-EPI)NonAf (>60 ml/min/1.73 sqM) Glucose (74-99) mg/dL Lactic Ac Sepsis Rflx Plasma Lactic Acid Martín (0.7-2.0) mmol/L Calcium (8.4-10.2) mg/dL Total Bilirubin (0.2-1.3) mg/dL AST (14-36) U/L ALT (4-34) U/L Alkaline Phosphatase (38-126) U/L Total Protein (6.3-8.2) g/dL Albumin (3.5-5.0) g/dL Amylase (30-110) U/L Lipase (23-300) U/L Urine Color Yellow Urine Appearance Cloudy H (Clear) Urine pH 8.5 H (5.0-8.0) Ur Specific Lexa 1.020 (1.001-1.035) Urine Protein 1+ H (Negative) Urine Glucose (UA) Negative (Negative) Urine Ketones 4+ H (Negative) Urine Blood Negative (Negative) Urine Nitrite Negative (Negative) Urine Bilirubin Negative (Negative) Urine Urobilinogen 2.0 (<2.0) mg/dL Ur Leukocyte Esterase Negative (Negative) Urine RBC 5 (0-5) /hpf Urine WBC 3 (0-5) /hpf Ur Squamous Epith Cells 17 H (0-4) /hpf Hyaline Casts 1 (0-2) /lpf Urine Mucus Moderate H (None) /hpf Urine HCG, Qual Not Detected (Not Detectd) Urine Opiates Screen (NotDetected) Ur Oxycodone Screen (NotDetected) Urine Methadone Screen (NotDetected) Ur Propoxyphene Screen (NotDetected) Ur Barbiturates Screen (NotDetected) U Tricyclic Antidepress (NotDetected) Ur Phencyclidine Scrn (NotDetected) Ur Amphetamines Screen (NotDetected) U Methamphetamines Scrn (NotDetected) U Benzodiazepines Scrn (NotDetected) Urine Cocaine Screen (NotDetected) U Marijuana (THC) Screen (NotDetected) 10/02/22 10/02/22 10/02/22 Range/Units 11:23 11:23 12:19 WBC (3.8-10.6) k/uL RBC (3.80-5.40) m/uL Hgb (11.4-16.0) gm/dL Hct (34.0-46.0) % MCV (80.0-100.0) fL MCH (25.0-35.0) pg MCHC (31.0-37.0) g/dL RDW (11.5-15.5) % Plt Count (150-450) k/uL MPV Neutrophils % % Lymphocytes % % Monocytes % % Eosinophils % % Basophils % % Neutrophils # (1.3-7.7) k/uL Lymphocytes # (1.0-4.8) k/uL Monocytes # (0-1.0) k/uL Eosinophils # (0-0.7) k/uL Basophils # (0-0.2) k/uL Sodium 139 (137-145) mmol/L Potassium 4.3 (3.5-5.1) mmol/L Chloride 100 (98-107) mmol/L Carbon Dioxide 23 (22-30) mmol/L Anion Gap 16 mmol/L BUN 11 (7-17) mg/dL Creatinine 0.53 (0.52-1.04) mg/dL Est GFR (CKD-EPI)AfAm >90 (>60 ml/min/1.73 sqM) Est GFR (CKD-EPI)NonAf >90 (>60 ml/min/1.73 sqM) Glucose 161 H (74-99) mg/dL Lactic Ac Sepsis Rflx Y Plasma Lactic Acid Martín 2.5 H* (0.7-2.0) mmol/L Calcium 10.4 H (8.4-10.2) mg/dL Total Bilirubin 0.9 (0.2-1.3) mg/dL AST 24 (14-36) U/L ALT 35 H (4-34) U/L Alkaline Phosphatase 97 (38-126) U/L Total Protein 8.2 (6.3-8.2) g/dL Albumin 4.8 (3.5-5.0) g/dL Amylase 49 (30-110) U/L Lipase 37 (23-300) U/L Urine Color Urine Appearance (Clear) Urine pH (5.0-8.0) Ur Specific Lexa (1.001-1.035) Urine Protein (Negative) Urine Glucose (UA) (Negative) Urine Ketones (Negative) Urine Blood (Negative) Urine Nitrite (Negative) Urine Bilirubin (Negative) Urine Urobilinogen (<2.0) mg/dL Ur Leukocyte Esterase (Negative) Urine RBC (0-5) /hpf Urine WBC (0-5) /hpf Ur Squamous Epith Cells (0-4) /hpf Hyaline Casts (0-2) /lpf Urine Mucus (None) /hpf Urine HCG, Qual (Not Detectd) Urine Opiates Screen (NotDetected) Ur Oxycodone Screen (NotDetected) Urine Methadone Screen (NotDetected) Ur Propoxyphene Screen (NotDetected) Ur Barbiturates Screen (NotDetected) U Tricyclic Antidepress (NotDetected) Ur Phencyclidine Scrn (NotDetected) Ur Amphetamines Screen (NotDetected) U Methamphetamines Scrn (NotDetected) U Benzodiazepines Scrn (NotDetected) Urine Cocaine Screen (NotDetected) U Marijuana (THC) Screen (NotDetected) 10/02/22 10/02/22 Range/Units 12:50 15:23 WBC (3.8-10.6) k/uL RBC (3.80-5.40) m/uL Hgb (11.4-16.0) gm/dL Hct (34.0-46.0) % MCV (80.0-100.0) fL MCH (25.0-35.0) pg MCHC (31.0-37.0) g/dL RDW (11.5-15.5) % Plt Count (150-450) k/uL MPV Neutrophils % % Lymphocytes % % Monocytes % % Eosinophils % % Basophils % % Neutrophils # (1.3-7.7) k/uL Lymphocytes # (1.0-4.8) k/uL Monocytes # (0-1.0) k/uL Eosinophils # (0-0.7) k/uL Basophils # (0-0.2) k/uL Sodium (137-145) mmol/L Potassium (3.5-5.1) mmol/L Chloride (98-107) mmol/L Carbon Dioxide (22-30) mmol/L Anion Gap mmol/L BUN (7-17) mg/dL Creatinine (0.52-1.04) mg/dL Est GFR (CKD-EPI)AfAm (>60 ml/min/1.73 sqM) Est GFR (CKD-EPI)NonAf (>60 ml/min/1.73 sqM) Glucose (74-99) mg/dL Lactic Ac Sepsis Rflx Plasma Lactic Acid Martín 1.0 (0.7-2.0) mmol/L Calcium (8.4-10.2) mg/dL Total Bilirubin (0.2-1.3) mg/dL AST (14-36) U/L ALT (4-34) U/L Alkaline Phosphatase (38-126) U/L Total Protein (6.3-8.2) g/dL Albumin (3.5-5.0) g/dL Amylase (30-110) U/L Lipase (23-300) U/L Urine Color Urine Appearance (Clear) Urine pH (5.0-8.0) Ur Specific Lexa (1.001-1.035) Urine Protein (Negative) Urine Glucose (UA) (Negative) Urine Ketones (Negative) Urine Blood (Negative) Urine Nitrite (Negative) Urine Bilirubin (Negative) Urine Urobilinogen (<2.0) mg/dL Ur Leukocyte Esterase (Negative) Urine RBC (0-5) /hpf Urine WBC (0-5) /hpf Ur Squamous Epith Cells (0-4) /hpf Hyaline Casts (0-2) /lpf Urine Mucus (None) /hpf Urine HCG, Qual (Not Detectd) Urine Opiates Screen Not Detected (NotDetected) Ur Oxycodone Screen Detected H (NotDetected) Urine Methadone Screen Not Detected (NotDetected) Ur Propoxyphene Screen Not Detected (NotDetected) Ur Barbiturates Screen Not Detected (NotDetected) U Tricyclic Antidepress Detected H (NotDetected) Ur Phencyclidine Scrn Not Detected (NotDetected) Ur Amphetamines Screen Not Detected (NotDetected) U Methamphetamines Scrn Not Detected (NotDetected) U Benzodiazepines Scrn Not Detected (NotDetected) Urine Cocaine Screen Not Detected (NotDetected) U Marijuana (THC) Screen Detected H (NotDetected) - Radiology Data Radiology results: report reviewed, image reviewed Disposition Clinical Impression: Intractable nausea and vomiting Disposition: ADMITTED IP TO THIS HOSP
[2022-10-02 11:46] LABS: Basophils # (A) 0.1 k/uL (0-0.2); Basophils % (A) 0 %; Eosinophils # (A) 0.2 k/uL (0-0.7); Eosinophils % (A) 1 %; HGB 14.6 gm/dL (11.4-16.0); Lymphocytes # (A) 3.6 k/uL (1.0-4.8); Lymphocytes % (A) 16 %; MCH 28.9 pg (25.0-35.0); MCHC 33.9 g/dL (31.0-37.0); MCV 85.3 fL (80.0-100.0); Mean Platelet Volume 7.5; Monocytes # (A) 0.6 k/uL (0-1.0); Monocytes % (A) 3 %; Neutrophils # (A) 17.7 k/uL (1.3-7.7); Neutrophils % (A) 79 %; Platelet Count 577 k/uL (150-450); RBC 5.04 m/uL (3.80-5.40); RDW 15.5 % (11.5-15.5); WBC 22.4 k/uL (3.8-10.6)
[2022-10-02] MEDS ORDERED: METOCLOPRAMIDE 5 MG/ML 2 ML VIAL IVP STA (11:51)
[2022-10-02 11:52] LABS: ALT 35 U/L (4-34); AST 24 U/L (14-36); African American GFR (CKD) >90 (>60 ml/min/1.73 sqM); Albumin 4.8 g/dL (3.5-5.0); Alkaline Phosphatase 97 U/L (38-126); Amylase 49 U/L (30-110); Anion Gap 16 mmol/L; Blood Urea Nitrogen 11 mg/dL (7-17); Calcium 10.4 mg/dL (8.4-10.2); Carbon Dioxide 23 mmol/L (22-30); Chloride 100 mmol/L (98-107); Glucose 161 mg/dL (74-99); Lipase 37 U/L (23-300); Non-African American GFR(CKD) >90 (>60 ml/min/1.73 sqM); Potassium 4.3 mmol/L (3.5-5.1); Sodium 139 mmol/L (137-145); Total Bilirubin 0.9 mg/dL (0.2-1.3); Total Protein 8.2 g/dL (6.3-8.2)
[2022-10-02] MEDS ORDERED: PROCHLORPERAZINE INJ 10 MG/2 ML VIAL IVP STA (12:15)
[2022-10-02] MEDS ORDERED: diphenhydrAMINE 50 MG/ML 1 ML VIAL IVP STA (12:16)
--- NOTE | 2022-10-02 12:59 | CT ---
EXAMINATION TYPE: CT abdomen pelvis wo con DATE OF EXAM: 10/02/2022 COMPARISON: 04/11/2020 HISTORY: epigasric pain, nausea CT DLP: 696.2 mGycm Automated exposure control for dose reduction was used. TECHNIQUE: Helical acquisition of images was performed from the lung bases through the pelvis. FINDINGS: LUNG BASES: No significant abnormality is appreciated. LIVER/GB: Low attenuation. Ligamentum teres suggesting focal fatty ulceration. Surgical clips in the gallbladder fossa correlating 4 previous cholecystectomy. Low attenuation in the liver suggestive of hepatic steatosis. PANCREAS: No significant abnormality is seen. SPLEEN: No significant abnormality is seen. ADRENALS: No significant abnormality is seen. KIDNEYS: There is a 5 mm mid pole nonobstructing left renal calculus. There is a punctate 1 mm upper pole left renal calculus image 28. No evidence of hydronephrosis on the right. ADENOPATHY: None visualized. OSSEOUS STRUCTURES: No significant abnormality is seen. BOWEL: Bowel gas pattern nonspecific. Assessment of the bowel limited due to lack of significant ora l contrast and incomplete distention. No obvious evidence of obstruction. Small hiatal hernia noted. Occasional diverticula seen with no diagnostic evidence of diverticulitis. As noted above bowel is no ndistended and limits evaluation. No definite inflammatory changes. Appendix normal. OTHER: Intrauterine device is noted with the tip extending into the endocervical canal correlate clin ically. Aorta normal caliber.Complex cystic lesion measuring 2.3 cm right adnexa. IMPRESSION: 1. Left-sided nephrolithiasis with no diagnostic evidence of hydronephrosis. 2 hepatic steatosis and postcholecystectomy changes. 3. Limited assessment of the bowel due to nondistention and lack of contrast demonstrates no evidence of obstruction. 4. 2.3 cm complex lesion right adnexa likely related to right ovary correlate with ultrasound.
[2022-10-02 13:02] LABS: Appearance,Urine Cloudy (Clear); Bilirubin,Urine Negative (Negative); Blood,Urine Negative (Negative); Color,Urine Yellow; Glucose,Urine (UA) Negative (Negative); Hyaline Casts,Urine 1 /lpf (0-2); Ketones,Urine 4+ (Negative); Leukocyte Esterase,Urine Negative (Negative); Mucus,Urine Moderate /hpf; Nitrite,Urine Negative (Negative); PH, Urine 8.5 (5.0-8.0); Protein,Urine 1+ (Negative); RBC,Urine 5 /hpf (0-5); Squamous Epithelial Cell,Urine 17 /hpf (0-4); WBC,Urine 3 /hpf (0-5)
[2022-10-02] MEDS ORDERED: HALOPERIDOL LACTATE 5 MG/ML 1 ML VIAL IVP ONE (13:18)
[2022-10-02 13:19] LABS: Amphetamine Screen,Urine Not Detected (NotDetected); Barbiturate Screen,Urine Not Detected (NotDetected); Benzodiazepines Screen,Urine Not Detected (NotDetected); Cocaine Screen,Urine Not Detected (NotDetected); Methadone Screen, Urine Not Detected (NotDetected); Opiate Screen,Urine Not Detected (NotDetected); Oxycodone Screen, Urine Detected (NotDetected); Phencyclidine Screen,Urine Not Detected (NotDetected); Tricyclic Antidepressant,Urine Detected (NotDetected); Urn Cannabinoid Scrn Detected (NotDetected)
[2022-10-02] MEDS ORDERED: LORazepam 2 MG/ML INJ IV STA (14:11)
[2022-10-02] MEDS ORDERED: NALOXONE 0.4 MG/ML 1 ML VIAL IV PRN (16:33)
[2022-10-02] MEDS ORDERED: IBUPROFEN 400 MG TAB PO PRN (16:33)
[2022-10-02] MEDS ORDERED: ONDANSETRON 4 MG/2 ML VIAL IVP PRN (16:33)
[2022-10-02] MEDS: METOCLOPRAMIDE 5 MG/ML 2 ML VIAL IVP PRN ×2 (17:36→23:18)
[2022-10-02] MEDS: KETOROLAC 15 MG/ML 1 ML VIAL IVP PRN (17:36)
[2022-10-02] MEDS: SODIUM CHLORIDE 0.9% 1,000 ML IV SCH (18:57)
[2022-10-02] MEDS: ACETAMINOPHEN TAB 325 MG TAB PO PRN (21:03)
[2022-10-02] MEDS: GABAPENTIN 400 MG CAP PO SCH (21:04)
[2022-10-02] MEDS: ONDANSETRON 4 MG/2 ML VIAL IVP PRN (22:29)
[2022-10-03] MEDS: SODIUM CHLORIDE 0.9% 1,000 ML IV SCH ×4 (01:49→23:45)
[2022-10-03] MEDS: ONDANSETRON 4 MG/2 ML VIAL IVP PRN ×5 (01:56→20:27)
[2022-10-03] MEDS: METOCLOPRAMIDE 5 MG/ML 2 ML VIAL IVP PRN ×4 (05:18→23:34)
[2022-10-03] MEDS: GABAPENTIN 400 MG CAP PO SCH ×4 (08:37→20:27)
[2022-10-03] MEDS ORDERED: QUEtiapine 25 MG TAB PO SCH (09:00)
[2022-10-03] MEDS ORDERED: PANTOPRAZOLE 40 MG TABLET PO SCH (09:00)
[2022-10-03 10:21] LABS: African American GFR (CKD) >90 (>60 ml/min/1.73 sqM); Anion Gap 14 mmol/L; Blood Urea Nitrogen 16 mg/dL (7-17); Calcium 9.2 mg/dL (8.4-10.2); Carbon Dioxide 22 mmol/L (22-30); Chloride 103 mmol/L (98-107); Glucose 135 mg/dL (74-99); Non-African American GFR(CKD) >90 (>60 ml/min/1.73 sqM); Potassium 3.4 mmol/L (3.5-5.1); Sodium 139 mmol/L (137-145)
[2022-10-03 10:36] LABS: C Reactive Protein 0.6 mg/dL (<1.0)
[2022-10-03] MEDS: NON FORMULARY DRUG (Cariprazine Hcl [Vraylar] 6 MG Capsule) PO SCH (11:03)
[2022-10-03 11:06] LABS: Basophils # (A) 0.1 k/uL (0-0.2); Basophils % (A) 0 %; Eosinophils % (A) 0 %; HCT 38.7 % (34.0-46.0); HGB 13.2 gm/dL (11.4-16.0); Lymphocytes # (A) 2.8 k/uL (1.0-4.8); Lymphocytes % (A) 14 %; MCHC 34.1 g/dL (31.0-37.0); MCV 87.9 fL (80.0-100.0); Mean Platelet Volume 7.6; Monocytes # (A) 0.8 k/uL (0-1.0); Monocytes % (A) 4 %; Neutrophils # (A) 15.9 k/uL (1.3-7.7); Neutrophils % (A) 80 %; Platelet Count 506 k/uL (150-450)
[2022-10-03] MEDS ORDERED: POTASSIUM CHLORIDE 20 MEQ in WATER FOR INJECTION 1 100ML.BAG IVPB STA (11:45)
[2022-10-03] MEDS: oxyCODONE-APAP 10-325MG 1 EACH TAB PO SCH ×4 (11:58→23:38)
[2022-10-03] MEDS: DICYCLOMINE 10 MG CAP PO SCH (11:58)
[2022-10-03] MEDS: MONTELUKAST 10 MG TAB PO SCH (11:58)
[2022-10-03] MEDS: QUEtiapine 50 MG TAB PO SCH (11:59)
[2022-10-03] MEDS: PANTOPRAZOLE 40 MG/10 ML VIAL IVP SCH (14:44)
--- NOTE | 2022-10-03 16:45 | P.HPIM ---
History of Present Illness H&P Date: 10/02/22 Chief Complaint: Abdominal pain/vomiting 36-year-old female who presents to the emergency department for nausea, vomiting, and epigastric pain 3 days. States that she has had problems with intractable nausea and vomiting in the past and they can never figure out why this occurs. She does report regular marijuana use. Denies any changes in bowel or bladder habits. Also denies any sick contacts. Review of Systems REVIEW OF SYSTEMS: CONSTITUTIONAL: No fever, no malaise, no fatigue. HEENT: No recent visual problems or hearing problems. Denied any sore throat. CARDIOVASCULAR: No chest pain, orthopnea, PND, no palpitations, no syncope. PULMONARY: No shortness of breath, no cough, no hemoptysis. GASTROINTESTINAL: No diarrhea, complains of nausea, vomiting and abdominal pain. NEUROLOGICAL: No headaches, no weakness, no numbness. HEMATOLOGICAL: Denies any bleeding or petechiae. GENITOURINARY: Denies any burning micturition, frequency, or urgency. MUSCULOSKELETAL/RHEUMATOLOGICAL: Denies any joint pain, swelling, or any muscle pain. ENDOCRINE: Denies any polyuria or polydipsia. The rest of the 14-point review of systems is negative. Past Medical History Past Medical History: Osteoarthritis (OA) Additional Past Medical History / Comment(s): IBS, colitis. 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 History of Any Multi-Drug Resistant Organisms: None Reported Past Surgical History: Cholecystectomy, Orthopedic Surgery Additional Past Surgical History / Comment(s): ORIF RT HAND. MIRENA INSERTION, pain procedures. Past Anesthesia/Blood Transfusion Reactions: No Reported Reaction Past Psychological History: Anxiety, Depression, Schizoaffective Disorder Smoking Status: Former smoker Past Alcohol Use History: Occasional Past Drug Use History: Marijuana - Past Family History Mother Family Medical History: Unable to Obtain Additional Family Medical History / Comment(s): Patient states does not any history of her family. Medications and Allergies Home Medications Medication Instructions Recorded Confirmed Type DULoxetine HCL [Cymbalta] 30 mg PO HS 06/17/17 10/02/22 History Atorvastatin [Lipitor] 20 mg PO HS 10/02/22 10/02/22 History Budesonide/Formoterol Fumarate 2 puff INHALATION RT-BID 10/02/22 10/02/22 History [Symbicort 160-4.5 Mcg Inhaler] Cariprazine HCl [Vraylar] 6 mg PO DAILY 10/02/22 10/02/22 History Dicyclomine [Bentyl] 10 mg PO DAILY 10/02/22 10/02/22 History Dulaglutide [Trulicity] 3 mg SQ TU 10/02/22 10/02/22 History EPINEPHrine (Auto Inject) [Epipen] 0.3 mg IM ONCE PRN 10/02/22 10/02/22 History Gabapentin 800 mg PO QID 10/02/22 10/02/22 History Ibuprofen [Motrin] 800 mg PO Q8H PRN 10/02/22 10/02/22 History Montelukast [Singulair] 10 mg PO DAILY 10/02/22 10/02/22 History Omeprazole 40 mg PO DAILY 10/02/22 10/02/22 History Ondansetron Odt [Zofran ODT] 4 mg PO Q8H PRN 10/02/22 10/02/22 History QUEtiapine FUMARATE [SEROquel] 25 mg PO DAILY 10/02/22 10/02/22 History QUEtiapine XR [SEROquel XR] 50 mg PO HS 10/02/22 10/02/22 History QUEtiapine XR [SEROquel XR] 200 mg PO HS 10/02/22 10/02/22 History Topiramate [Topamax] 50 mg PO HS 10/02/22 10/02/22 History Ubrogepant [Ubrelvy] 100 mg PO Q2D@2100 10/02/22 10/02/22 History lisinopriL 2.5 mg PO DAILY 10/02/22 10/02/22 History metFORMIN HCL [Glucophage] 500 mg PO DAILY 10/02/22 10/02/22 History oxyCODONE-APAP 10-325MG [Percocet 1 tab PO QID 10/02/22 10/02/22 History 10-325 mg] Allergies Allergy/AdvReac Type Severity Reaction Status Date / Time Iodinated Contrast Media Allergy Anaphylaxis Verified 10/02/22 13:55 [Iodinated Contrast Media - Oral and] latex Allergy Rash/Hives Verified 10/02/22 13:55 shellfish derived [Shellfish] Allergy Anaphylaxis Verified 10/02/22 13:55 mirtazapine [From Remeron] AdvReac Hallucinati Verified 10/02/22 13:55 ons Physical Exam Vitals: Vital Signs Temp Pulse Resp BP Pulse Ox 10/02/22 17:35 88 18 129/93 100 10/02/22 13:47 130/93 10/02/22 13:44 80 18 99 10/02/22 10:14 97.5 F L 97 18 129/83 98 Intake and Output 10/02/22 10/02/22 10/02/22 06:59 14:59 22:59 Other: Weight 81.647 kg General appearance: alert, in distress Head exam: Present: atraumatic, normocephalic, normal inspection Respiratory exam: Present: normal lung sounds bilaterally. Absent: respiratory distress, wheezes, rales, rhonchi, stridor Cardiovascular Exam: Present: regular rate, normal rhythm, normal heart sounds. Absent: systolic murmur, diastolic murmur, rubs, gallop, clicks GI/Abdominal exam: Present: soft, tenderness (epigastric), normal bowel sounds. Absent: distended Neurological exam: Present: alert, oriented X3, CN II-XII intact Psychiatric exam: Present: normal affect, normal mood Skin exam: Present: warm, dry, intact, normal color. Absent: rash Results CBC & Chem 7: 10/03/22 09:35 10/03/22 09:35 Labs: Abnormal Lab Results - Last 24 Hours (Table) 10/02/22 10/02/22 10/02/22 Range/Units 11:23 11:23 11:23 WBC 22.4 H (3.8-10.6) k/uL Plt Count 577 H (150-450) k/uL Neutrophils # 17.7 H (1.3-7.7) k/uL Glucose 161 H (74-99) mg/dL Plasma Lactic Acid Martín (0.7-2.0) mmol/L Calcium 10.4 H (8.4-10.2) mg/dL ALT 35 H (4-34) U/L Urine Appearance Cloudy H (Clear) Urine pH 8.5 H (5.0-8.0) Urine Protein 1+ H (Negative) Urine Ketones 4+ H (Negative) Ur Squamous Epith Cells 17 H (0-4) /hpf Urine Mucus Moderate H (None) /hpf Ur Oxycodone Screen (NotDetected) U Tricyclic Antidepress (NotDetected) U Marijuana (THC) Screen (NotDetected) 10/02/22 10/02/22 Range/Units 11:23 12:50 WBC (3.8-10.6) k/uL Plt Count (150-450) k/uL Neutrophils # (1.3-7.7) k/uL Glucose (74-99) mg/dL Plasma Lactic Acid Martín 2.5 H* (0.7-2.0) mmol/L Calcium (8.4-10.2) mg/dL ALT (4-34) U/L Urine Appearance (Clear) Urine pH (5.0-8.0) Urine Protein (Negative) Urine Ketones (Negative) Ur Squamous Epith Cells (0-4) /hpf Urine Mucus (None) /hpf Ur Oxycodone Screen Detected H (NotDetected) U Tricyclic Antidepress Detected H (NotDetected) U Marijuana (THC) Screen Detected H (NotDetected) Assessment and Plan Assessment: 1. Intractable nausea/vomiting; acute gastroenteritis versus cannabinoid hyperemesis syndrome - Blood glucose 80 reveals leukocytosis which could be reactive versus infectious process - Lactic acid is elevated again related to intractable vomiting and dehydration - Patient is Placed on IV Fluids; received multiple antibiotics in ED about alternatively - CT of the abdomen and pelvis completed and is negative for any acute findings 2. Hypertension; lisinopril 2.5 mg daily 3. Hyperlipidemia; Lipitor 20 mg by mouth daily at bedtime 4. Diabetes mellitus type 2; patient takes metformin and Trulicity; we will plan to monitor Accu-Cheks every 6 hours is with insulin sliding scale 5. Asthma; not in exacerbation; continue with home inhaler therapy in form of Symbicort; singular 10 mg daily 6. Anxiety/depression/schizoaffective disorder; patient takes regular 6 mg daily; Seroquel 25 mg every morning and 250 mg daily at bedtime 7. Chronic back pain; oxycodone 10 mg 4 times a day when necessary
[2022-10-03] MEDS: MORPHINE SULFATE 2 MG/ML SYRINGE IV PRN ×2 (19:32→23:33)
[2022-10-03] MEDS: QUEtiapine 100 MG TAB PO SCH (20:28)
[2022-10-03] MEDS: QUEtiapine 25 MG TAB PO SCH (20:31)
[2022-10-03] MEDS: DULoxetine HCL 30 MG CAPSULE.DR PO SCH (20:31)
[2022-10-03] MEDS: TOPIRAMATE 25 MG TAB PO SCH (20:31)
[2022-10-03] MEDS: ATORVASTATIN 20 MG TAB PO SCH (20:31)
[2022-10-03] MEDS: SYMBICORT 160-4.5 MCG INHALER INHALATION SCH (20:49)
[2022-10-03] MEDS ORDERED: QUETIAPINE 200 MG PO SCH (21:00)
[2022-10-03] MEDS ORDERED: NON FORMULARY DRUG (Ubrogepant [Ubrelvy] 100 MG Tablet) PO SCH (21:00)
[2022-10-03] MEDS ORDERED: QUETIAPINE 50 MG PO SCH (21:00)
[2022-10-04] MEDS: ACETAMINOPHEN TAB 325 MG TAB PO PRN (02:21)
[2022-10-04] MEDS: MORPHINE SULFATE 2 MG/ML SYRINGE IV PRN ×2 (03:39→10:35)
[2022-10-04] MEDS: ONDANSETRON 4 MG/2 ML VIAL IVP PRN ×3 (03:39→15:49)
[2022-10-04] MEDS: METOCLOPRAMIDE 5 MG/ML 2 ML VIAL IVP PRN ×2 (06:02→11:58)
[2022-10-04] MEDS: SODIUM CHLORIDE 0.9% 1,000 ML IV SCH ×3 (08:22→23:12)
[2022-10-04] MEDS: NON FORMULARY DRUG (Cariprazine Hcl [Vraylar] 6 MG Capsule) PO SCH (08:22)
[2022-10-04] MEDS: SYMBICORT 160-4.5 MCG INHALER INHALATION SCH ×2 (08:37→20:46)
[2022-10-04 09:06] VITALS: RESP 16
[2022-10-04] MEDS: oxyCODONE-APAP 10-325MG 1 EACH TAB PO SCH ×4 (09:16→20:45)
[2022-10-04] MEDS: GABAPENTIN 400 MG CAP PO SCH ×4 (09:16→20:45)
[2022-10-04 09:17] LABS: African American GFR (CKD) 153.1 (60.0-200.0); BUN/Creat Ratio 33.25 Ratio (12.00-20.00); Blood Urea Nitrogen 13.3 mg/dL (9.0-27.0); Calcium 8.7 mg/dL (8.7-10.3); Non-African American GFR(CKD) 132.1 (60.0-200.0); Potassium 3.1 mmol/L (3.5-5.5)
[2022-10-04] MEDS: PANTOPRAZOLE 40 MG/10 ML VIAL IVP SCH (09:17)
[2022-10-04] MEDS: DICYCLOMINE 10 MG CAP PO SCH (09:17)
[2022-10-04] MEDS: MONTELUKAST 10 MG TAB PO SCH (09:17)
[2022-10-04] MEDS: QUEtiapine 50 MG TAB PO SCH (09:18)
[2022-10-04 09:21] LABS: HCT 34.1 % (37.2-46.3); HGB 10.8 g/dL (12.0-15.0); MCH 28.1 pg (27.0-32.0); MCHC 31.7 g/dL (32.0-37.0); MCV 88.8 fL (80.0-97.0); Mean Platelet Volume 9.2 fL (9.5-12.2); NRBC Per 100 WBC 0 /100 WBCS (0.0-0.0); Platelet Count 413 X 10*3/uL (140-440); RBC 3.84 X 10*6/uL (4.10-5.20); RDW 15.4 % (11.5-14.5); WBC 17.25 X 10*3/uL (4.50-10.00)
[2022-10-04 10:50] LABS: Basophils # (M) 0 X 10*3/uL (0.00-0.10); Eosinophils # (M) 0 X 10*3/uL (0.04-0.35); Lymphocytes # (M) 6.04 X 10*3/uL (0.90-5.00); Monocytes # (M) 1.21 X 10*3/uL (0.20-1.00); Neutrophils # (M) 10.01 X 10*3/uL (2.00-8.90); Neutrophils % (M) 58 %
--- NOTE | 2022-10-04 11:16 | P.GSCN ---
History of Present Illness Consult date: 10/04/22 Reason for Consult: Chronic nausea History of present illness: Is a 28-year-old female who's [facility] complaints of nausea and epigastri c abdominal pain. Patient states she had an attack of similar symptoms approximately year ago. Patient's. History of cholecystectomy. Past Medical History Past Medical History: Osteoarthritis (OA) Additional Past Medical History / Comment(s): IBS, colitis. 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 History of Any Multi-Drug Resistant Organisms: None Reported Past Surgical History: Cholecystectomy, Orthopedic Surgery Additional Past Surgical History / Comment(s): ORIF RT HAND. MIRENA INSERTION, pain procedures. Past Anesthesia/Blood Transfusion Reactions: No Reported Reaction Past Psychological History: Anxiety, Depression, Schizoaffective Disorder Smoking Status: Former smoker Past Alcohol Use History: Occasional Past Drug Use History: Marijuana - Past Family History Mother Family Medical History: Unable to Obtain Additional Family Medical History / Comment(s): Patient states does not any history of her family. Medications and Allergies Home Medications Medication Instructions Recorded Confirmed Type DULoxetine HCL [Cymbalta] 30 mg PO HS 06/17/17 10/02/22 History Atorvastatin [Lipitor] 20 mg PO HS 10/02/22 10/02/22 History Budesonide/Formoterol Fumarate 2 puff INHALATION RT-BID 10/02/22 10/02/22 History [Symbicort 160-4.5 Mcg Inhaler] Cariprazine HCl [Vraylar] 6 mg PO DAILY 10/02/22 10/02/22 History Dicyclomine [Bentyl] 10 mg PO DAILY 10/02/22 10/02/22 History Dulaglutide [Trulicity] 3 mg SQ TU 10/02/22 10/02/22 History EPINEPHrine (Auto Inject) [Epipen] 0.3 mg IM ONCE PRN 10/02/22 10/02/22 History Gabapentin 800 mg PO QID 10/02/22 10/02/22 History Ibuprofen [Motrin] 800 mg PO Q8H PRN 10/02/22 10/02/22 History Montelukast [Singulair] 10 mg PO DAILY 10/02/22 10/02/22 History Omeprazole 40 mg PO DAILY 10/02/22 10/02/22 History Ondansetron Odt [Zofran ODT] 4 mg PO Q8H PRN 10/02/22 10/02/22 History QUEtiapine FUMARATE [SEROquel] 25 mg PO DAILY 10/02/22 10/02/22 History QUEtiapine XR [SEROquel XR] 50 mg PO HS 10/02/22 10/02/22 History QUEtiapine XR [SEROquel XR] 200 mg PO HS 10/02/22 10/02/22 History Topiramate [Topamax] 50 mg PO HS 10/02/22 10/02/22 History Ubrogepant [Ubrelvy] 100 mg PO Q2D@2100 10/02/22 10/02/22 History lisinopriL 2.5 mg PO DAILY 10/02/22 10/02/22 History metFORMIN HCL [Glucophage] 500 mg PO DAILY 10/02/22 10/02/22 History oxyCODONE-APAP 10-325MG [Percocet 1 tab PO QID 10/02/22 10/02/22 History 10-325 mg] Allergies Allergy/AdvReac Type Severity Reaction Status Date / Time Iodinated Contrast Media Allergy Anaphylaxis Verified 10/02/22 13:55 [Iodinated Contrast Media - Oral and] latex Allergy Rash/Hives Verified 10/02/22 13:55 shellfish derived [Shellfish] Allergy Anaphylaxis Verified 10/02/22 13:55 mirtazapine [From Remeron] AdvReac Hallucinati Verified 10/02/22 13:55 ons Surgical - Exam Vital Signs Temp Pulse Resp BP Pulse Ox 97.5 F L 97 18 129/83 98 10/02/22 10:14 10/02/22 10:14 10/02/22 10:14 10/02/22 10:14 10/02/22 10:14 - General well developed, well nourished, no distress - Eyes PERRL - ENT normal pinna - Neck no masses - Respiratory normal expansion - Cardiovascular Rhythm: regular - Abdomen Abdomen: soft, non tender Results - Labs 10/04/22 05:50 10/04/22 05:50 Abnormal Lab Results - Last 24 Hours (Table) 10/04/22 10/04/22 Range/Units 05:50 05:50 WBC 17.25 H (4.50-10.00) X 10*3/uL RBC 3.84 L (4.10-5.20) X 10*6/uL Hgb 10.8 L (12.0-15.0) g/dL Hct 34.1 L (37.2-46.3) % MCHC 31.7 L (32.0-37.0) g/dL RDW 15.4 H (11.5-14.5) % MPV 9.2 L (9.5-12.2) fL Neutrophils # (Manual) 10.01 H (2.00-8.90) X 10*3/uL Lymphocytes # (Manual) 6.04 H (0.90-5.00) X 10*3/uL Monocytes # (Manual) 1.21 H (0.20-1.00) X 10*3/uL Eosinophils # (Manual) 0 L (0.04-0.35) X 10*3/uL Potassium 3.1 L (3.5-5.5) mmol/L Creatinine 0.4 L (0.6-1.5) mg/dL BUN/Creatinine Ratio 33.25 H (12.00-20.00) Ratio Glucose 126 H (70-110) mg/dL Diabetes panel 10/04/22 Range/Units 05:50 Sodium 138 (135-145) mmol/L Potassium 3.1 L (3.5-5.5) mmol/L Chloride 103 (96-109) mmol/L Carbon Dioxide 24.0 (20.0-27.5) mmol/L BUN 13.3 (9.0-27.0) mg/dL Creatinine 0.4 L (0.6-1.5) mg/dL Glucose 126 H (70-110) mg/dL Calcium 8.7 (8.7-10.3) mg/dL Calcium panel 10/04/22 Range/Units 05:50 Calcium 8.7 (8.7-10.3) mg/dL Pituitary panel 10/04/22 Range/Units 05:50 Sodium 138 (135-145) mmol/L Potassium 3.1 L (3.5-5.5) mmol/L Chloride 103 (96-109) mmol/L Carbon Dioxide 24.0 (20.0-27.5) mmol/L BUN 13.3 (9.0-27.0) mg/dL Creatinine 0.4 L (0.6-1.5) mg/dL Glucose 126 H (70-110) mg/dL Calcium 8.7 (8.7-10.3) mg/dL Adrenal panel 10/04/22 Range/Units 05:50 Sodium 138 (135-145) mmol/L Potassium 3.1 L (3.5-5.5) mmol/L Chloride 103 (96-109) mmol/L Carbon Dioxide 24.0 (20.0-27.5) mmol/L BUN 13.3 (9.0-27.0) mg/dL Creatinine 0.4 L (0.6-1.5) mg/dL Glucose 126 H (70-110) mg/dL Calcium 8.7 (8.7-10.3) mg/dL Assessment and Plan Plan: Nausea. Patient was scheduled for EGD and the antrum.
[2022-10-04] MEDS: KETOROLAC 15 MG/ML 1 ML VIAL IVP PRN (12:02)
--- NOTE | 2022-10-04 13:00 | P.PN ---
Subjective Progress Note Date: 10/03/22 36-year-old female who presents to the emergency department for nausea, vomiting, and epigastric pain 3 days. States that she has had problems with intractable nausea and vomiting in the past and they can never figure out why this occurs. She does report regular marijuana use. Denies any changes in devi wel or bladder habits. Also denies any sick contacts. Objective - Vital Signs Vital signs: Vital Signs Temp 98.2 F 10/03/22 07:00 Pulse 82 10/03/22 07:00 Resp 18 10/03/22 07:00 BP 146/83 10/03/22 07:00 Pulse Ox 99 10/03/22 07:00 FiO2 Intake & Output 10/02/22 10/03/22 10/03/22 18:59 06:59 18:59 Output Total 300 Balance -300 Weight 81.647 kg Output: Emesis 300 Other: Voiding Method Toilet # Voids 3 - Exam General appearance: alert, in distress Head exam: Present: atraumatic, normocephalic, normal inspection Respiratory exam: Present: normal lung sounds bilaterally. Absent: respiratory distress, wheezes, rales, rhonchi, stridor Cardiovascular Exam: Present: regular rate, normal rhythm, normal heart sounds. Absent: systolic murmur, diastolic murmur, rubs, gallop, clicks GI/Abdominal exam: Present: soft, tenderness (epigastric), normal bowel sounds. Absent: distended Neurological exam: Present: alert, oriented X3, CN II-XII intact Psychiatric exam: Present: normal affect, normal mood Skin exam: Present: warm, dry, intact, normal color. Absent: rash - Labs CBC & Chem 7: 10/04/22 05:50 10/04/22 05:50 Labs: Abnormal Lab Results - Last 24 Hours (Table) 10/02/22 10/02/22 10/02/22 Range/Units 11:23 11:23 11:23 WBC 22.4 H (3.8-10.6) k/uL Plt Count 577 H (150-450) k/uL Neutrophils # 17.7 H (1.3-7.7) k/uL Glucose 161 H (74-99) mg/dL Plasma Lactic Acid Martín (0.7-2.0) mmol/L Calcium 10.4 H (8.4-10.2) mg/dL ALT 35 H (4-34) U/L Urine Appearance Cloudy H (Clear) Urine pH 8.5 H (5.0-8.0) Urine Protein 1+ H (Negative) Urine Ketones 4+ H (Negative) Ur Squamous Epith Cells 17 H (0-4) /hpf Urine Mucus Moderate H (None) /hpf Ur Oxycodone Screen (NotDetected) U Tricyclic Antidepress (NotDetected) U Marijuana (THC) Screen (NotDetected) 10/02/22 10/02/22 Range/Units 11:23 12:50 WBC (3.8-10.6) k/uL Plt Count (150-450) k/uL Neutrophils # (1.3-7.7) k/uL Glucose (74-99) mg/dL Plasma Lactic Acid Martín 2.5 H* (0.7-2.0) mmol/L Calcium (8.4-10.2) mg/dL ALT (4-34) U/L Urine Appearance (Clear) Urine pH (5.0-8.0) Urine Protein (Negative) Urine Ketones (Negative) Ur Squamous Epith Cells (0-4) /hpf Urine Mucus (None) /hpf Ur Oxycodone Screen Detected H (NotDetected) U Tricyclic Antidepress Detected H (NotDetected) U Marijuana (THC) Screen Detected H (NotDetected) Assessment and Plan Assessment: 1. Intractable nausea/vomiting; acute gastroenteritis versus cannabinoid hyperemesis syndrome - Blood glucose 80 reveals leukocytosis which could be reactive versus infectious process - Lactic acid is elevated again related to intractable vomiting and dehydration - Patient is Placed on IV Fluids; received multiple antibiotics in ED about alternatively - CT of the abdomen and pelvis completed and is negative for any acute findings 2. Hypertension; lisinopril 2.5 mg daily 3. Hyperlipidemia; Lipitor 20 mg by mouth daily at bedtime 4. Diabetes mellitus type 2; patient takes metformin and Trulicity; we will plan to monitor Accu-Cheks every 6 hours is with insulin sliding scale 5. Asthma; not in exacerbation; continue with home inhaler therapy in form of Symbicort; singular 10 mg daily 6. Anxiety/depression/schizoaffective disorder; patient takes regular 6 mg daily; Seroquel 25 mg every morning and 250 mg daily at bedtime 7. Chronic back pain; oxycodone 10 mg 4 times a day when necessary
--- NOTE | 2022-10-04 17:53 | P.PN ---
Subjective Progress Note Date: 10/04/22 36-year-old female who presents to the emergency department for nausea, vomiting, and epigastric pain 3 days. States that she has had problems with intractable nausea and vomiting in the past and they can never figure out why this occurs. She does report regular marijuana use. Denies any changes in devi wel or bladder habits. Also denies any sick contacts. 10/04/2022 Patient is seen and evaluated in room at bedside; continues to complain of persistent nausea; remains on clear liquid diet; has been taking antibiotics on schedule Vital signs are reviewed and remained stable Patient has been evaluated by general surgery and is recommended EGD; patient is agreeable Objective - Vital Signs Vital signs: Vital Signs Temp 97.9 F 10/04/22 07:00 Pulse 69 10/04/22 07:00 Resp 16 10/04/22 07:00 BP 111/69 10/04/22 07:00 Pulse Ox 97 10/04/22 07:00 FiO2 Intake & Output 10/03/22 10/04/22 10/04/22 18:59 06:59 18:59 Intake Total 118 Output Total 400 400 100 Balance -282 -400 -100 Intake: Oral 118 Output: Emesis 400 400 100 Other: Voiding Method Toilet # Voids 2 3 - Exam General appearance: alert, in distress Head exam: Present: atraumatic, normocephalic, normal inspection Respiratory exam: Present: normal lung sounds bilaterally. Absent: respiratory distress, wheezes, rales, rhonchi, stridor Cardiovascular Exam: Present: regular rate, normal rhythm, normal heart sounds. Absent: systolic murmur, diastolic murmur, rubs, gallop, clicks GI/Abdominal exam: Present: soft, tenderness (epigastric), normal bowel sounds. Absent: distended Neurological exam: Present: alert, oriented X3, CN II-XII intact Psychiatric exam: Present: normal affect, normal mood Skin exam: Present: warm, dry, intact, normal color. Absent: rash - Labs CBC & Chem 7: 10/04/22 05:50 10/04/22 05:50 Labs: Abnormal Lab Results - Last 24 Hours (Table) 10/04/22 10/04/22 Range/Units 05:50 05:50 WBC 17.25 H (4.50-10.00) X 10*3/uL RBC 3.84 L (4.10-5.20) X 10*6/uL Hgb 10.8 L (12.0-15.0) g/dL Hct 34.1 L (37.2-46.3) % MCHC 31.7 L (32.0-37.0) g/dL RDW 15.4 H (11.5-14.5) % MPV 9.2 L (9.5-12.2) fL Neutrophils # (Manual) 10.01 H (2.00-8.90) X 10*3/uL Lymphocytes # (Manual) 6.04 H (0.90-5.00) X 10*3/uL Monocytes # (Manual) 1.21 H (0.20-1.00) X 10*3/uL Eosinophils # (Manual) 0 L (0.04-0.35) X 10*3/uL Potassium 3.1 L (3.5-5.5) mmol/L Creatinine 0.4 L (0.6-1.5) mg/dL BUN/Creatinine Ratio 33.25 H (12.00-20.00) Ratio Glucose 126 H (70-110) mg/dL Assessment and Plan Assessment: 1. Intractable nausea/vomiting; acute gastroenteritis versus cannabinoid hyperemesis syndrome - Blood glucose 80 reveals leukocytosis which could be reactive versus infectious process - Lactic acid is elevated again related to intractable vomiting and dehydration - Patient is Placed on IV Fluids; received multiple antibiotics in ED about alternatively - CT of the abdomen and pelvis completed and is negative for any acute findings 2. Hypertension; lisinopril 2.5 mg daily 3. Hyperlipidemia; Lipitor 20 mg by mouth daily at bedtime 4. Diabetes mellitus type 2; patient takes metformin and Trulicity; we will plan to monitor Accu-Cheks every 6 hours is with insulin sliding scale 5. Asthma; not in exacerbation; continue with home inhaler therapy in form of Symbicort; singular 10 mg daily 6. Anxiety/depression/schizoaffective disorder; patient takes regular 6 mg daily; Seroquel 25 mg every morning and 250 mg daily at bedtime 7. Chronic back pain; oxycodone 10 mg 4 times a day when necessary
[2022-10-04] MEDS: DULoxetine HCL 30 MG CAPSULE.DR PO SCH (20:44)
[2022-10-04] MEDS: TOPIRAMATE 25 MG TAB PO SCH (20:44)
[2022-10-04] MEDS: QUEtiapine 25 MG TAB PO SCH (20:44)
[2022-10-04] MEDS: QUEtiapine 100 MG TAB PO SCH (20:44)
[2022-10-04] MEDS: ATORVASTATIN 20 MG TAB PO SCH (20:44)
[2022-10-05] MEDS: SODIUM CHLORIDE 0.9% 1,000 ML IV SCH ×2 (03:55→14:16)
[2022-10-05] MEDS: SYMBICORT 160-4.5 MCG INHALER INHALATION SCH (07:33)
[2022-10-05] MEDS: NON FORMULARY DRUG (Cariprazine Hcl [Vraylar] 6 MG Capsule) PO SCH (07:37)
[2022-10-05] MEDS: GABAPENTIN 400 MG CAP PO SCH ×2 (07:38→14:15)
[2022-10-05] MEDS: oxyCODONE-APAP 10-325MG 1 EACH TAB PO SCH ×2 (07:39→14:15)
[2022-10-05] MEDS: PANTOPRAZOLE 40 MG/10 ML VIAL IVP SCH (07:39)
[2022-10-05] MEDS: MONTELUKAST 10 MG TAB PO SCH (07:39)
[2022-10-05] MEDS: DICYCLOMINE 10 MG CAP PO SCH (07:39)
[2022-10-05] MEDS: QUEtiapine 25 MG TAB PO SCH (07:40)
[2022-10-05] MEDS: QUEtiapine 50 MG TAB PO SCH (07:41)
[2022-10-05 08:52] VITALS: TEMP 97.6
[2022-10-05 13:07] LABS: Basophils % (A) 0 %; Eosinophils # (A) 0.1 k/uL (0-0.7); Eosinophils % (A) 1 %; HCT 34.1 % (34.0-46.0); HGB 11.4 gm/dL (11.4-16.0); Lymphocytes # (A) 4.8 k/uL (1.0-4.8); Lymphocytes % (A) 47 %; MCH 29.1 pg (25.0-35.0); MCHC 33.5 g/dL (31.0-37.0); MCV 86.8 fL (80.0-100.0); Monocytes # (A) 0.5 k/uL (0-1.0); Monocytes % (A) 5 %; Neutrophils # (A) 4.6 k/uL (1.3-7.7); Neutrophils % (A) 45 %; Platelet Count 339 k/uL (150-450); RBC 3.93 m/uL (3.80-5.40); RDW 15.3 % (11.5-15.5); WBC 10.3 k/uL (3.8-10.6)
[2022-10-05] MEDS ORDERED: LIDOCAINE 2% INJ 20 MG/ML (2 ML VIAL) ONE (15:40)
[2022-10-05] MEDS ORDERED: PROPOFOL 10 MG/ML 20 ML VIAL IV ONE (15:40)
[2022-10-05] MEDS ORDERED: IV FLUID CONTINUATION 900 ML IV ONE (15:44)
--- NOTE | 2022-10-05 15:57 | P.OP ---
Date of Procedure: 10/05/22 Preoperative Diagnosis: GERD Postoperative Diagnosis: GERD Procedure(s) Performed: EGD Anesthesia: MAC Surgeon: Alberto Zhou Pathology: other (Antrum, esophagus) Condition: stable Disposition: PACU Description of Procedure: Patient's placed on the endoscopy table in the lateral position. She received IV sedation. The gastroscope placed oropharynx passed in the esophagus into the stomach. Scope was placed through the pylorus. The first and second portion of the duodenum appeared normal. Scope was then brought back the antrum this. Mildly inflamed. A biopsies performed. The scope was then retroflexed and the remainder of the stomach appeared normal. The patient a small sliding hiatal hernia. The GE junction was at 38 cm per the distal esophagus appeared inflamed. This was biopsied. The proximal esophagus appeared normal. Scope withdrawn for patient.
[2022-10-05 17:00] VITALS: BP 122/79; PULSE 71
[2022-10-05 18:08] LABS: African American GFR (CKD) 153.1 (60.0-200.0); Anion Gap 10.7 mmol/L (10.00-18.00); BUN/Creat Ratio 15.75 Ratio (12.00-20.00); Blood Urea Nitrogen 6.3 mg/dL (9.0-27.0); Calcium 8.7 mg/dL (8.7-10.3); Carbon Dioxide 19.3 mmol/L (20.0-27.5); Non-African American GFR(CKD) 132.1 (60.0-200.0); Potassium 3.1 mmol/L (3.5-5.5)
--- NOTE | 2022-10-06 15:14 | P.DS ---
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 Possible acute gastroenteritis, EGD pending. Hypertension Hyperlipidemia Diabetes mellitus type 2 Asthma, chronic, stable Anxiety, depression, schizoaffective disorder Chronic back pain This is a 36-year-old female presented to the emergency department for nausea, vomiting, and epigastric pain 3 days. States that she has had problems with intractable nausea and vomiting in the past and they can never figure out why this occurs. She does report regular marijuana use. Denies any changes in bowel or bladder habits. Also denies any sick contacts. Evaluated by general surgery and is scheduled for EGD this morning. Receiving antiemetics .Reports minimal nausea, no emesis. Reports no nausea tolerated clear liquid diet yesterday-currently NPO for procedure. Significant clinical improvement. Patient will be discharged home today in a stable condition with guarded prognosis pending EGD results, final DC recommendations and clearance per general surgery. The impression and plan of care has been dictated as directed. : I performed a history and examination of this patient, discussed the same with the dictator. I agree with the dictator's note ,documented as a scribe. Any additional findings or plans will be noted. Patient Condition at Discharge: Stable Plan - Discharge Summary New Discharge Prescriptions: New Metoclopramide [Reglan] 10 mg PO ACHS #56 tab Continue DULoxetine HCL [Cymbalta] 30 mg PO HS Cariprazine HCl [Vraylar] 6 mg PO DAILY Dulaglutide [Trulicity] 3 mg SQ TU Gabapentin 800 mg PO QID lisinopriL 2.5 mg PO DAILY metFORMIN HCL [Glucophage] 500 mg PO DAILY Montelukast [Singulair] 10 mg PO DAILY Topiramate [Topamax] 50 mg PO HS Ubrogepant [Ubrelvy] 100 mg PO Q2D@2100 Atorvastatin [Lipitor] 20 mg PO HS Budesonide/Formoterol Fumarate [Symbicort 160-4.5 Mcg Inhaler] 2 puff INHALATION RT-BID Dicyclomine [Bentyl] 10 mg PO DAILY EPINEPHrine (Auto Inject) [Epipen] 0.3 mg IM ONCE PRN PRN Reason: Anaphylaxis Ibuprofen [Motrin] 800 mg PO Q8H PRN PRN Reason: Pain Omeprazole 40 mg PO DAILY oxyCODONE-APAP 10-325MG [Percocet 10-325 mg] 1 tab PO QID QUEtiapine FUMARATE [SEROquel] 25 mg PO DAILY QUEtiapine XR [SEROquel XR] 50 mg PO HS QUEtiapine XR [SEROquel XR] 200 mg PO HS Changed Ondansetron Odt [Zofran ODT] 4 mg PO Q8H PRN #15 tab PRN Reason: Nausea Discharge Medication List DULoxetine HCL [Cymbalta] 30 mg PO HS 06/17/17 [History] Atorvastatin [Lipitor] 20 mg PO HS 10/02/22 [History] Budesonide/Formoterol Fumarate [Symbicort 160-4.5 Mcg Inhaler] 2 puff INHALATION RT-BID 10/02/22 [History] Cariprazine HCl [Vraylar] 6 mg PO DAILY 10/02/22 [History] Dicyclomine [Bentyl] 10 mg PO DAILY 10/02/22 [History] Dulaglutide [Trulicity] 3 mg SQ TU 10/02/22 [History] EPINEPHrine (Auto Inject) [Epipen] 0.3 mg IM ONCE PRN 10/02/22 [History] Gabapentin 800 mg PO QID 10/02/22 [History] Ibuprofen [Motrin] 800 mg PO Q8H PRN 10/02/22 [History] Montelukast [Singulair] 10 mg PO DAILY 10/02/22 [History] Omeprazole 40 mg PO DAILY 10/02/22 [History] QUEtiapine FUMARATE [SEROquel] 25 mg PO DAILY 10/02/22 [History] QUEtiapine XR [SEROquel XR] 50 mg PO HS 10/02/22 [History] QUEtiapine XR [SEROquel XR] 200 mg PO HS 10/02/22 [History] Topiramate [Topamax] 50 mg PO HS 10/02/22 [History] Ubrogepant [Ubrelvy] 100 mg PO Q2D@2100 10/02/22 [History] lisinopriL 2.5 mg PO DAILY 10/02/22 [History] metFORMIN HCL [Glucophage] 500 mg PO DAILY 10/02/22 [History] oxyCODONE-APAP 10-325MG [Percocet 10-325 mg] 1 tab PO QID 10/02/22 [History] Metoclopramide [Reglan] 10 mg PO ACHS #56 tab 10/05/22 [Rx] Ondansetron Odt [Zofran ODT] 4 mg PO Q8H PRN #15 tab 10/05/22 [Rx] Follow up Appointment(s)/Referral(s): Leilani Limon DO [Primary Care Provider] - 3 Days Patient Instructions/Handouts: Acute Nausea and Vomiting (DC) Activity/Diet/Wound Care/Special Instructions: No marijuana. Discharge Disposition: HOME SELF-CARE
== END 2022-10-05 17:04 | disposition home or self-care (01) ==
LOC: EC 10:06 → 6NMEDSUR 16:08
PROVIDERS: ADMIT Family Medicine; ATTEND Family Medicine
DX: K21.00 Gastro-esophageal reflux disease with esophagitis, without bleeding (principal); K29.50 Unspecified chronic gastritis without bleeding; K44.9 Diaphragmatic hernia without obstruction or gangrene; F12.90 Cannabis use, unspecified, uncomplicated; K58.9 Irritable bowel syndrome, unspecified; F25.9 Schizoaffective disorder, unspecified; F32.A Depression, unspecified; F41.9 Anxiety disorder, unspecified; I10 Essential (primary) hypertension; E78.5 Hyperlipidemia, unspecified; E11.9 Type 2 diabetes mellitus without complications; J45.909 Unspecified asthma, uncomplicated; G89.29 Other chronic pain; M54.9 Dorsalgia, unspecified; Z87.891 Personal history of nicotine dependence; Z90.49 Acquired absence of other specified parts of digestive tract; Z79.899 Other long term (current) drug therapy; Z79.51 Long term (current) use of inhaled steroids; Z79.85 Long-term (current) use of injectable non-insulin antidiabetic drugs; Z79.84 Long term (current) use of oral hypoglycemic drugs; Z91.040 Latex allergy status
CPT/HCPCS: 96365; 96366; 96375 ×2; 96376 ×5; 96361; 96374; 99285; 36415; 94640; 80053; 80048 ×3; 82150; 83605; 83690; 85025 ×4; 86140; 81001; 81025; 80306; 84145; 74176; 43239; G0378 ×4; J2060; J1200; J0780; J1630; J2765 ×3; J3480; J2405 ×3; J2270 ×2; J1885 ×2; J2704; C9113 ×3; J2001; 88305; 88312

== ENCOUNTER 2023-02-04 11:20 | Inpatient (IN) | payer MEDICARE, MEDICAID ==
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
[2023-02-04] MEDS ORDERED: LORazepam 1 MG TAB PO STA (14:18)
[2023-02-04] MEDS ORDERED: MAG HYDROX/AL HYDROX/SIMETH 30 ML CUP PO PRN (16:49)
[2023-02-04] MEDS ORDERED: MAGNESIUM HYDROXIDE 2,400 MG/30 ML CUP PO PRN (16:49)
[2023-02-04] MEDS ORDERED: hydrOXYzine HCL 50 MG/ML 1 ML VIAL IM PRN (16:55)
[2023-02-04] MEDS ORDERED: OLANZapine 10 MG VIAL IM PRN (16:55)
[2023-02-04 17:10] LABS: Glucose,Whole Blood 103 mg/dL (70-110)
[2023-02-04] MEDS: GABAPENTIN 400 MG CAP PO SCH ×2 (18:21→21:14)
[2023-02-04] MEDS: oxyCODONE-APAP 10-325MG 1 EACH TAB PO PRN (18:22)
[2023-02-04] MEDS: LORazepam 1 MG TAB PO PRN (18:26)
[2023-02-04] MEDS: ATORVASTATIN 20 MG TAB PO SCH (21:14)
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
[2023-02-04] MEDS: hydrOXYzine pamoate 25 MG CAP PO PRN (23:06)
[2023-02-05] MEDS: LORazepam 1 MG TAB PO PRN ×2 (00:47→10:11)
[2023-02-05] MEDS: OLANZapine 5 MG TAB PO PRN ×2 (00:47→10:12)
[2023-02-05] MEDS: NICOTINE 14MG/24HR PATCH TRANSDERM SCH (04:29)
[2023-02-05 07:04] LABS: Basophils % (A) 0 %; Eosinophils # (A) 0.2 k/uL (0-0.7); Eosinophils % (A) 2 %; HCT 33.1 % (34.0-46.0); HGB 11.3 gm/dL (11.4-16.0); Lymphocytes # (A) 2.9 k/uL (1.0-4.8); Lymphocytes % (A) 23 %; MCH 28.9 pg (25.0-35.0); MCHC 34.1 g/dL (31.0-37.0); MCV 84.7 fL (80.0-100.0); Mean Platelet Volume 7.2; Monocytes # (A) 0.6 k/uL (0-1.0); Monocytes % (A) 5 %; Neutrophils % (A) 70 %; Platelet Count 321 k/uL (150-450); RDW 13.6 % (11.5-15.5); WBC 12.9 k/uL (3.8-10.6)
[2023-02-05 07:20] LABS: ALT 57 U/L (4-34); AST 30 U/L (14-36); African American GFR (CKD) >90 (>60 ml/min/1.73 sqM); Albumin 3.4 g/dL (3.5-5.0); Alkaline Phosphatase 91 U/L (38-126); Anion Gap 3 mmol/L; Blood Urea Nitrogen 4 mg/dL (7-17); Calcium 8.5 mg/dL (8.4-10.2); Carbon Dioxide 29 mmol/L (22-30); Chloride 104 mmol/L (98-107); Glucose 119 mg/dL (74-99); Non-African American GFR(CKD) >90 (>60 ml/min/1.73 sqM); Potassium 3.5 mmol/L (3.5-5.1); Sodium 136 mmol/L (137-145); Total Bilirubin 0.4 mg/dL (0.2-1.3); Total Protein 6.1 g/dL (6.3-8.2)
[2023-02-05] MEDS: oxyCODONE-APAP 10-325MG 1 EACH TAB PO PRN ×2 (07:26→21:12)
[2023-02-05] MEDS: PANTOPRAZOLE 40 MG TABLET PO SCH (08:13)
[2023-02-05] MEDS: GABAPENTIN 400 MG CAP PO SCH ×3 (08:13→21:10)
[2023-02-05] MEDS: hydrOXYzine pamoate 25 MG CAP PO PRN ×2 (10:11→16:48)
[2023-02-05] MEDS: IBUPROFEN 800 MG TAB PO PRN ×2 (10:12→21:13)
[2023-02-05] MEDS ORDERED: OLANZapine 10 MG VIAL IM PRN (11:11)
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
[2023-02-05] MEDS: clonazePAM 1 MG TAB PO PRN ×2 (13:19→21:13)
[2023-02-05] MEDS: lamoTRIgine 25 MG TAB PO SCH ×2 (13:19→21:13)
[2023-02-05] MEDS: OLANZapine 10 MG TAB PO PRN (16:48)
[2023-02-05] MEDS: DOXEPIN 10 MG CAP PO SCH (21:10)
[2023-02-05] MEDS: ATORVASTATIN 20 MG TAB PO SCH (21:10)
[2023-02-06] MEDS: hydrOXYzine pamoate 25 MG CAP PO PRN ×2 (00:44→11:50)
[2023-02-06 06:21] LABS: Amphetamine Screen,Urine Not Detected (NotDetected); Barbiturate Screen,Urine Not Detected (NotDetected); Benzodiazepines Screen,Urine Detected (NotDetected); Cocaine Screen,Urine Not Detected (NotDetected); Methadone Screen, Urine Not Detected (NotDetected); Opiate Screen,Urine Not Detected (NotDetected); Oxycodone Screen, Urine Detected (NotDetected); Phencyclidine Screen,Urine Not Detected (NotDetected); Tricyclic Antidepressant,Urine Not Detected (NotDetected); Urn Cannabinoid Scrn Detected (NotDetected)
[2023-02-06] MEDS: NICOTINE 14MG/24HR PATCH TRANSDERM SCH (08:29)
[2023-02-06] MEDS: PANTOPRAZOLE 40 MG TABLET PO SCH (08:29)
[2023-02-06] MEDS: lamoTRIgine 25 MG TAB PO SCH ×2 (08:29→20:34)
[2023-02-06] MEDS: GABAPENTIN 400 MG CAP PO SCH ×3 (08:29→20:34)
[2023-02-06] MEDS: oxyCODONE-APAP 10-325MG 1 EACH TAB PO PRN ×2 (08:30→20:34)
[2023-02-06] MEDS: clonazePAM 1 MG TAB PO PRN ×2 (09:21→20:34)
[2023-02-06] MEDS: OLANZapine 10 MG TAB PO PRN (12:26)
--- NOTE | 2023-02-06 15:00 | P.PN ---
Subjective Progress Note Date: 02/06/23 Principal diagnosis: IMPRESSIONS: Schizoaffective disorder, bipolar type hx of PTSD cannabis use disorder nicotine dependence The patient was done in her room and came readily to talk to me. She did not raise her voice had good eye contact reasonable self-care. Gait and station were normal Subjective she says that she does have a history of mood swings and psychosis and the only thing that's ever made the voices go away with Geodon twice a day but she cannot remember the milligrams. She says that she was, "an idiot" and stopped her medications and then when she relapsed people assume Geodon had works as it put her on other meds. She is currently just been started on Prolixin but I think we would get better compliance and we have a history of good efficacy on Geodon. MENTAL STATUS EXAM: General Appearance: Patient appears to be overweight, several tattoos, facial piercings, stated age is alert, rambling, intrusive, aggressive/agitated. . Behavior: Patient is seated, and was pleasant and cooperative she says, "as long as well by yells at me I'm fine." Speech: Patient's speech is no longer hyperverbal or pressured Mood/Affect: Patient reports their mood is still somewhat depressed and edgy, affect is congruent and labile. Suicidality/Homicidality: Denied Perceptions: Patient denies any visual hallucinations [and does report AH however does not state what they are saying to her. Though content/process: Tangential, rambling, loose associations, demanding. Not endorsing any delusions. Focused on her medications. Memory and concentration: AOX3, grossly intact for the purposes of this session. Judgment and insight: poor and impulsive STRENGTHS/WEAKNESSES: strength is that patient is resilient. Weakness is that patient does well for a while and tends to stop her medication Assessment: I think she is doing somewhat better but I think she would do well in terms of compliance that she take something she knows it works knocks out all the voices and paranoia. Geodon is also fairly good on weight gain does not cause akathisia I think will be tolerated well PLAN: -Patient is admitted under voluntary status to MHU for stabilization of psychia tric symptoms and safety. Patient has not signed medication consent and is placed in patient's chart. -Medications : Will replace the Prolixin with Geodon 60 as supper and 60 at bedtime for mood stabilization/psychosis, doxepin 10 mg qhs for insomnia/mood I don't think she will need this if the Geodon work so we will stop that tomorrow, lamictal 25 mg bid for mood stabilization. -Klonopin and Zyprexa PRN for agitation/aggression. vistaril prn for anxiety. -Patient was informed of the risks, benefits and side effects of the medication -Internal Medicine consult to perform medical evaluation and physical. -NRT - nicotine patch -SW on board for discharge planning. Encourage patient to participate in groups to work on coping skills. 02/05/23 11:13 Objective - Vital Signs Vital signs: Vital Signs Temp 98.1 F 02/06/23 01:35 Pulse 88 02/06/23 01:35 Resp 18 02/06/23 01:35 BP 121/88 02/06/23 01:35 Pulse Ox 99 02/06/23 01:35 FiO2 - Labs CBC & Chem 7: 02/05/23 06:36 02/05/23 06:36 Labs: Abnormal Lab Results - Last 24 Hours (Table) 02/06/23 Range/Units 05:59 Ur Oxycodone Screen Detected H (NotDetected) U Benzodiazepines Scrn Detected H (NotDetected) U Marijuana (THC) Screen Detected H (NotDetected)
[2023-02-06] MEDS: ZIPRASIDONE 60 MG CAP PO SCH ×2 (16:59→20:34)
[2023-02-06] MEDS: IBUPROFEN 800 MG TAB PO PRN (17:08)
[2023-02-06] MEDS: ONDANSETRON 4 MG TAB PO PRN (19:53)
[2023-02-06] MEDS: DOXEPIN 10 MG CAP PO SCH (20:34)
[2023-02-06] MEDS: ATORVASTATIN 20 MG TAB PO SCH (20:34)
[2023-02-06] MEDS: traZODone HCL 50 MG TAB PO SCH (22:22)
[2023-02-07] MEDS: hydrOXYzine pamoate 25 MG CAP PO PRN ×2 (02:40→15:18)
[2023-02-07] MEDS: clonazePAM 1 MG TAB PO PRN ×3 (02:40→21:32)
[2023-02-07 06:42] VITALS: RESP 18
--- NOTE | 2023-02-07 07:17 | P.PN ---
Subjective Progress Note Date: 02/07/23 Principal diagnosis: IMPRESSIONS: Schizoaffective disorder, bipolar type hx of PTSD cannabis use disorder nicotine dependence The patient came readily to talk to me. She did not raise her voice had good eye contact reasonable self-care. Gait and station were normal Subjective: she says that she was not given any food with her Geodon at night and so did not sleep as well as she hoped and still has some racing thoughts. I pointed out that he can take a little while for her to work and we may have to bump up the medication the first make sure she takes it with release 450 kamila a full MENTAL STATUS EXAM: General Appearance: Patient appears to be overweight, several tattoos, facial piercings, stated age is alert, she is doing much better at staying on topic Behavior: Patient is seated, and was pleasant and cooperative she says, Speech: Patient's speech is no longer hyperverbal or pressured Mood/Affect: Patient reports their mood is still somewhat depressed and edgy, affect is congruent. Suicidality/Homicidality: Denied Perceptions: Patient denies any visual hallucinations [and does report AH however does not state what they are saying to her. Though content/process: Her thought processes seem to be much more organized saying that she did not sleep well I think the medicine is helping her think straight. Not endorsing any delusions. Focused on her medications. Memory and concentration: AOX3, she paid good attention Judgment and insight: poor and impulsive STRENGTHS/WEAKNESSES: strength is that patient is resilient. Weakness is that patient does well for a while and tends to stop her medication Assessment: I think she is doing somewhat better and I think the Geodon is a good idea but he may need to be increased and she needs to remind the nurses that she has to food with it, for it to work PLAN: -Patient is admitted under voluntary status to MHU for stabilization of psychiatric symptoms and safety. Patient has not signed medication consent and is placed in patient's chart. -Medications : Will replace the Prolixin with Geodon 60 as supper and 60 at bedtime for mood stabilization/psychosis, doxepin 10 mg qhs for insomnia/mood I don't think she will need this if the Geodon work so we will stop that tomorrow, lamictal 25 mg bid for mood stabilization. (It is too early to increase the Lamictal) -Madelinepin and Zyprexa PRN for agitation/aggression. vistaril prn for anxiety. -Patient was informed of the risks, benefits and side effects of the medication -Internal Medicine consult to perform medical evaluation and physical. -NRT nicotine patch -SW on board for discharge planning. Encourage patient to participate in groups to work on coping skills. 02/05/23 11:13 Objective - Vital Signs Vital signs: Vital Signs Temp 98.1 F 02/06/23 17:53 Pulse 102 H 02/07/23 06:41 Resp 18 02/07/23 06:41 BP 129/81 02/07/23 06:41 Pulse Ox 98 02/07/23 06:41 FiO2 - Labs CBC & Chem 7: 02/05/23 06:36 02/05/23 06:36
[2023-02-07] MEDS: GABAPENTIN 400 MG CAP PO SCH ×3 (08:37→20:27)
[2023-02-07] MEDS: oxyCODONE-APAP 10-325MG 1 EACH TAB PO PRN ×2 (08:37→20:28)
[2023-02-07] MEDS: lamoTRIgine 25 MG TAB PO SCH ×2 (08:37→20:27)
[2023-02-07] MEDS: NICOTINE 14MG/24HR PATCH TRANSDERM SCH (08:38)
[2023-02-07] MEDS: PANTOPRAZOLE 40 MG TABLET PO SCH (08:38)
[2023-02-07] MEDS ORDERED: ZIPRASIDONE 60 MG CAP PO SCH (09:00)
[2023-02-07] MEDS ORDERED: ZOLPIDEM 5 MG TAB PO PRN (09:23)
--- NOTE | 2023-02-07 09:26 | P.PN ---
Subjective Progress Note Date: 02/07/23 Principal diagnosis: IMPRESSIONS: Schizoaffective disorder, bipolar type hx of PTSD cannabis use disorder nicotine dependence The patient had an additional question she said that she did not sleep well on just 150 of trazodone but when she got her nighttime Geodon they did not give her food with that, I think that would make a big difference. So asked her to make sure she has her food tonight then also to give her when necessary of Ambien which she can take an hour later if the Geodon isn't working Objective - Vital Signs Vital signs: Vital Signs Temp 98.1 F 02/06/23 17:53 Pulse 102 H 02/07/23 06:41 Resp 18 02/07/23 06:41 BP 129/81 02/07/23 06:41 Pulse Ox 98 02/07/23 06:41 FiO2 - Labs CBC & Chem 7: 02/05/23 06:36 02/05/23 06:36
[2023-02-07] MEDS: ONDANSETRON 4 MG TAB PO PRN (10:58)
[2023-02-07] MEDS: NICOTINE GUM (POLACRILEX) 2 MG GUM BUCCAL PRN ×2 (13:03→17:05)
[2023-02-07] MEDS: IBUPROFEN 800 MG TAB PO PRN (14:29)
[2023-02-07] MEDS: ZIPRASIDONE 60 MG CAP PO SCH ×2 (17:44→20:27)
[2023-02-07] MEDS: ATORVASTATIN 20 MG TAB PO SCH (20:28)
[2023-02-07] MEDS: DOXEPIN 10 MG CAP PO SCH (20:28)
[2023-02-07] MEDS: traZODone HCL 50 MG TAB PO SCH (21:31)
[2023-02-08] MEDS: clonazePAM 1 MG TAB PO PRN ×3 (03:18→21:56)
[2023-02-08] MEDS: NICOTINE 14MG/24HR PATCH TRANSDERM SCH (06:50)
[2023-02-08] MEDS: NICOTINE GUM (POLACRILEX) 2 MG GUM BUCCAL PRN ×2 (06:50→14:59)
[2023-02-08] MEDS: PANTOPRAZOLE 40 MG TABLET PO SCH (07:29)
[2023-02-08] MEDS: lamoTRIgine 25 MG TAB PO SCH ×2 (07:29→20:35)
[2023-02-08] MEDS: GABAPENTIN 400 MG CAP PO SCH ×3 (07:29→20:35)
[2023-02-08] MEDS: IBUPROFEN 800 MG TAB PO PRN ×2 (07:30→16:35)
[2023-02-08] MEDS: oxyCODONE-APAP 10-325MG 1 EACH TAB PO PRN ×2 (07:30→20:36)
[2023-02-08] MEDS: hydrOXYzine pamoate 25 MG CAP PO PRN ×2 (11:02→21:56)
[2023-02-08] MEDS ORDERED: lamoTRIgine 25 MG TAB PO ONE (12:20)
--- NOTE | 2023-02-08 12:26 | P.PN ---
Progress Note - Text Progress Note Date: 02/08/23 Interval History: Patient was seen [wandering the hallways] and was directable and agreeable to speak with technical writer and editor. Patient states that she is doing a bit better since Wednesday however continues to state that she feels "agitated and annoyed easily". She was describing irritability with other people however did present much calmer during interaction. She was not hostile today with technical writer and editor, directable during conversation. She states that the Geodon has been helping significantly, states that she is still having very poor sleep. She was fairly focused on discharge. She was open to trying other medications to help her with sleep and agitation. States that she is only going to some groups, has a fair appetite. At this time patient denies any suicidal or homical ideations, intent or plan. Patient denies any auditory, visual hallucinations and denies any paranoia or delusions. Patient denies any side effects from the medications and has been compliant with meds. Mental Status Exam: General Appearance: Patient appears to be overweight, several tattoos, facial piercings, stated age is alert, less aggressive/agitated. Patient appears to have improving hygiene and grooming. Behavior: Patient is seated, less agitated, directable Speech: Patient's speech is hyperverbal, pressured. Mood/Affect: Patient reports their mood is "irritable", affect is congruent and constricted Suicidality/Homicidality: unable to assess Perceptions: Patient denies any visual hallucinations and denies any AH. Though content/process: Tangential, . Not endorsing any delusions. Focused on her medications. Memory and concentration: AOX3, grossly intact for the purposes of this session. Judgment and insight: poor, improving mildly IMPRESSIONS: Schizoaffective disorder, bipolar type hx of PTSD cannabis use disorder nicotine dependence PLAN: -Patient is admitted under voluntary status to MHU for stabilization of psychiatric symptoms and safety. Patient has not signed medication consent and is placed in patient's chart. -Medications : geodon 60 mg BID for mood stabilization/psychosis, increase doxepin 20 mg qhs for insomnia/mood, increase lamictal 50 mg bid for mood stabilization. increase trazodone 200 mg qhs for insomnia. start clonidine 0.1 mg bid for agitation/aggression. -Klonopin and Zyprexa PRN for agitation/aggression. vistaril prn for anxiety. -NRT - nicotine patch -SW on board for discharge planning. Encourage patient to participate in groups to work on coping skills. possible d/c in 2-3 days back home is patient improves.
[2023-02-08] MEDS: cloNIDine HCL 0.1 MG TAB PO SCH ×2 (13:53→20:37)
[2023-02-08] MEDS: ZIPRASIDONE 60 MG CAP PO SCH ×2 (17:41→20:36)
[2023-02-08] MEDS: ATORVASTATIN 20 MG TAB PO SCH (20:35)
[2023-02-08] MEDS ORDERED: traZODone HCL 100 MG TAB PO SCH (21:00)
[2023-02-08] MEDS ORDERED: DOXEPIN 10 MG CAP PO SCH (21:00)
[2023-02-09 06:56] VITALS: TEMP 97.7
[2023-02-09] MEDS: IBUPROFEN 800 MG TAB PO PRN (07:29)
[2023-02-09] MEDS: hydrOXYzine pamoate 25 MG CAP PO PRN (08:32)
[2023-02-09] MEDS: GABAPENTIN 400 MG CAP PO SCH (08:32)
[2023-02-09] MEDS: clonazePAM 1 MG TAB PO PRN (08:33)
[2023-02-09] MEDS: cloNIDine HCL 0.1 MG TAB PO SCH (08:33)
[2023-02-09] MEDS: lamoTRIgine 25 MG TAB PO SCH (08:33)
[2023-02-09] MEDS: oxyCODONE-APAP 10-325MG 1 EACH TAB PO PRN (08:33)
[2023-02-09] MEDS: PANTOPRAZOLE 40 MG TABLET PO SCH (08:34)
[2023-02-09] MEDS: NICOTINE 14MG/24HR PATCH TRANSDERM SCH (08:34)
[2023-02-09 08:37] VITALS: BP 149/94; PULSE 87
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
== END 2023-02-09 13:19 | disposition home or self-care (01) | DRG 885 ==
LOC: EC 11:20 → 3MHU 16:48
PROVIDERS: ADMIT Psychiatry & Neurology Psychiatry; ATTEND Psychiatry & Neurology Psychiatry
DX: F25.0 Schizoaffective disorder, bipolar type (principal); R45.851 Suicidal ideations; Z91.148 Patient's other noncompliance with medication regimen for other reason; F19.10 Other psychoactive substance abuse, uncomplicated; D33.2 Benign neoplasm of brain, unspecified; T50.916A Underdosing of multiple unspecified drugs, medicaments and biological substances, initial encounter; F17.210 Nicotine dependence, cigarettes, uncomplicated; M51.9 Unspecified thoracic, thoracolumbar and lumbosacral intervertebral disc disorder; F43.10 Post-traumatic stress disorder, unspecified; Z20.822 Contact with and (suspected) exposure to COVID-19; Z78.1 Physical restraint status; Z79.899 Other long term (current) drug therapy; Z79.891 Long term (current) use of opiate analgesic; Z91.041 Radiographic dye allergy status; Z91.013 Allergy to seafood; Z91.040 Latex allergy status; Z88.8 Allergy status to other drugs, medicaments and biological substances; Z86.14 Personal history of Methicillin resistant Staphylococcus aureus infection; Z97.5 Presence of (intrauterine) contraceptive device
CPT/HCPCS: 80053; 80306; 81025; 82075; 83036; 84443; 85025; 87635; 99285

== ENCOUNTER 2023-06-18 13:44 | Emergency (ER) | payer MEDICARE, OTHER ==
[2023-06-18 13:58] VITALS: TEMP 96.7
[2023-06-18] MEDS ORDERED: METOCLOPRAMIDE 5 MG/ML 2 ML VIAL IVP STA (14:22)
[2023-06-18] MEDS ORDERED: SODIUM CHLORIDE 0.9% 1,000 ML IV STA (14:22)
--- NOTE | 2023-06-18 14:26 | ED ---
Nausea/Vomiting/Diarrhea HPI - General Chief complaint: Nausea/Vomiting/Diarrhea Stated complaint: vomiting Time Seen by Provider: 06/18/23 14:19 Source: patient, family, RN notes reviewed Mode of arrival: ambulatory Limitations: no limitations - History of Present Illness Initial comments: Patient is a 37 year old female presented ER with chief complaint of nausea and vomiting. Patient states this began on for the past 4 days. Patient does endorse generalized abdominal pain. Patient does state she has been having the chills and a fever of 101.0. Patient denies any constipation or diarrhea, dysuria, chest pain, shortness of breath. - Related Data Home Medications Medication Instructions Recorded Confirmed Gabapentin 800 mg PO QID 10/02/22 02/04/23 oxyCODONE-APAP 10-325MG [Percocet 1 tab PO QID 10/02/22 02/04/23 10-325 mg] Previous Rx's Medication Instructions Recorded Atorvastatin [Lipitor] 20 mg PO HS 14 Days #14 tab 02/09/23 Doxepin [SINEquan] 25 mg PO HS 14 Days #14 capsule 02/09/23 Ibuprofen [Motrin] 800 mg PO Q8H PRN tab 02/09/23 Nicotine 14Mg/24Hr Patch [Habitrol] 1 patch TRANSDERM DAILY 14 Days 02/09/23 #14 patch Pantoprazole [Protonix] 40 mg PO AC-BRKFST 14 Days #14 tab 02/09/23 Ziprasidone [Geodon] 60 mg PO BID 14 Days #28 cap 02/09/23 cloNIDine HCL [Catapres] 0.1 mg PO BID 14 Days #28 tab 02/09/23 clonazePAM [KlonoPIN] 1 mg PO TID PRN 3 Days #9 tab 02/09/23 hydrOXYzine pamoate [Vistaril] 50 mg PO BID PRN 14 Days #56 cap 02/09/23 lamoTRIgine [LaMICtal] 100 mg PO DAILY 14 Days #14 tab 02/09/23 traZODone HCL 300 mg PO HS 14 Days #14 tab 02/09/23 Ondansetron Odt [Zofran Odt] 4 mg PO Q8HR PRN #10 tab 06/18/23 Allergies Allergy/AdvReac Type Severity Reaction Status Date / Time Iodinated Contrast Media Allergy Anaphylaxis Verified 06/18/23 13:55 [Iodinated Contrast Media - Oral and] latex Allergy Rash/Hives Verified 06/18/23 13:55 shellfish derived [Shellfish] Allergy Anaphylaxis Verified 06/18/23 13:55 dulaglutide [From Trulicity] AdvReac Nausea & Verified 06/18/23 13:55 Vomiting mirtazapine [From Remeron] AdvReac Hallucinati Verified 06/18/23 13:55 ons semaglutide [From Ozempic] AdvReac Nausea & Verified 06/18/23 13:55 Vomiting Review of Systems ROS Statement: Those systems with pertinent positive or pertinent negative responses have been documented in the HPI. ROS Other: All systems not noted in ROS Statement are negative. Past Medical History Past Medical History: Osteoarthritis (OA) Additional Past Medical History / Comment(s): IBS, colitis. 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 History of Any Multi-Drug Resistant Organisms: None Reported, MRSA Date of last positivie culture/infection: 2020 MDRO Source:: labia Past Surgical History: Cholecystectomy, Orthopedic Surgery Additional Past Surgical History / Comment(s): ORIF RT HAND. MIRENA INSERTION, pain procedures. Past Anesthesia/Blood Transfusion Reactions: No Reported Reaction Past Psychological History: Anxiety, Depression, Schizoaffective Disorder Smoking Status: Current every day smoker Past Alcohol Use History: None Reported Past Drug Use History: Marijuana - Past Family History Mother Family Medical History: Unable to Obtain Additional Family Medical History / Comment(s): Patient states does not any history of her family. General Exam Limitations: no limitations General appearance: alert, in no apparent distress Head exam: Present: atraumatic, normocephalic, normal inspection Respiratory exam: Present: normal lung sounds bilaterally. Absent: respiratory distress, wheezes, rales, rhonchi, stridor Cardiovascular Exam: Present: regular rate, normal rhythm, normal heart sounds. Absent: systolic murmur, diastolic murmur, rubs, gallop, clicks GI/Abdominal exam: Present: soft, tenderness, normal bowel sounds Neurological exam: Present: alert, oriented X3, CN II-XII intact Psychiatric exam: Present: normal affect, normal mood Skin exam: Present: warm, intact, diaphoretic (Mild) Course Vital Signs 06/18/23 06/18/23 06/18/23 13:51 16:14 17:58 Temperature 96.7 F L Pulse Rate 77 70 64 Respiratory 18 22 22 Rate Blood Pressure 160/110 172/90 162/89 O2 Sat by Pulse 95 98 96 Oximetry Medical Decision Making - Medical Decision Making Was pt. sent in by a medical professional or institution (ARIEL Zeng, [employer]OD [employer]SEM[employer]ER, urgent care, hospital, or [facility]...) When possible be specific @ -No Did you speak to anyone other than the patient for history (EMS, parent, family, police, friend...)? What history was obtained from this source @ -No Did you review nursing and triage notes (agree or disagree)? Why? @ -I reviewed and agree with nursing and triage notes Were old charts reviewed (outside hosp., previous admission, EMS record, old EKG, old radiological studies, urgent care reports/EKG's, [facility] records)? Report findings @ -No old charts were reviewed Differential Diagnosis (chest pain, altered mental status, abdominal pain women, abdominal pain men, vaginal bleeding, weakness, fever, dyspnea, syncope, headache, dizziness, GI bleed, back pain, seizure, CVA, palpatations, mental health, musculoskeletal)? @ -Differential Abdominal Pain Women: Appendicitis, Cholecystitis, diverticulosis, ischemic bowel, pancreatitis, hepatitis, UTI, gastroenteritis, AAA, incarcerated hernia, bowel obstruction, constipation, inflammatory bowel, hepatitis, peptic ulcer disease, splenic infarction, perforated viscus, vulvitis, ovarian torsion, PID, kidney stone, placenta abruption, this is not meant to be an all-inclusive list EKG interpreted by me (3pts min.). @ -None X-rays interpreted by me (1pt min.). @ -None done CT interpreted by me (1pt min.). @ -CT abdomen and pelvis shows no evidence for acute abdominal process. There is a nonobstructing left renal calculi. IUD is in appropriate position. There is colonic diverticulosis. U/S interpreted by me (1pt. min.). @ -None done What testing was considered but not performed or refused? (CT, X-rays, U/S, labs)? Why? @ -None What meds were considered but not given or refused? Why? @ -None Did you discuss the management of the patient with other professionals (professionals i.e. ARIEL Zeng, FOOD ASSEMBLER, lab, RT, psych nurse, social sciences instructor, lockstitch collar setter, teacher, vice squad police officer, case fitter)? Give summary @ -No Was smoking cessation discussed for >3mins.? @ -No Was critical care preformed (if so, how long)? @ -No Were there social determinants of health that impacted care today? How? (Homelessness, low income, unemployed, alcoholism, drug addiction, transportation, low edu. Level, literacy, decrease access to med. care, assisted, rehab)? @ -No Was there de-escalation of care discussed even if they declined (Discuss DNR or withdrawal of care, Hospice)? DNR status @ -No What co-morbidities impacted this encounter? (DM, HTN, Smoking, COPD, CAD, Cancer, CVA, ARF, Chemo, Hep., AIDS, mental health diagnosis, sleep apnea, mo rbid obesity)? @ -None Was patient admitted / discharged? Hospital course, mention meds given and route, prescriptions, significant lab abnormalities, going to OR and other pertinent info. @ -Discharged. Patient is a 37-year-old female presented ER with chief complaint of nausea and vomiting. Upon examination, patient's vital signs are stable. Physical exam was significant for generalized abdominal tenderness. Patient was actively vo miting on examination. Labs were significant for WBC 15.8. UA was significant for moderate blood and RBC 38. CT abdomen and pelvis shows no evidence for acute abdominal process. There is a nonobstructing left renal calculi. IUD is in appropriate position. There is colonic diverticulosis. Patient received 1L of IV fluids, IV Benadryl, IV droperidol, IV Pepcid, IV Toradol, IV Reglan. Patient states her nausea and vomiting improved and then returned. I discussed with patient her laboratory results and CT findings. Patient will be prescribed by mouth Zofran at discharge. Patient will be discharged in stable condition with follow-up to PCP. Return parameters were discussed. Patient expressed understanding and agreement with care plan. Undiagnosed new problem with uncertain prognosis? @ -No Drug Therapy requiring intensive monitoring for toxicity (Heparin, Nitro, Insulin, Cardizem)? @ -No Were any procedures done? @ -No Diagnosis/symptom? @ -Nausea and vomiting Acute, or Chronic, or Acute on Chronic? @ -Acute Uncomplicated (without systemic symptoms) or Complicated (systemic symptoms)? @ -Uncomplicated Side effects of treatment? @ -No Exacerbation, Progression, or Severe Exacerbation? @ -No Poses a threat to life or bodily function? How? (Chest pain, [place], [place], pneumonia, PE, COPD, DKA, ARF, appy, cholecystitis, CVA, Diverticulitis, Homicidal, Suicidal, threat to staff... and all critical care pts) @ -No - Lab Data Result diagrams: 06/18/23 14:36 06/18/23 14:36 Lab Results 06/18/23 06/18/23 06/18/23 Range/Units 14:36 14:36 14:36 WBC 15.8 H (3.8-10.6) k/uL RBC 5.16 (3.80-5.40) m/uL Hgb 14.5 (11.4-16.0) gm/dL Hct 42.3 (34.0-46.0) % MCV 81.9 (80.0-100.0) fL MCH 28.0 (25.0-35.0) pg MCHC 34.2 (31.0-37.0) g/dL RDW 12.7 (11.5-15.5) % Plt Count 432 (150-450) k/uL MPV 6.7 Neutrophils % 79 % Lymphocytes % 17 % Monocytes % 3 % Eosinophils % 1 % Basophils % 0 % Neutrophils # 12.4 H (1.3-7.7) k/uL Lymphocytes # 2.7 (1.0-4.8) k/uL Monocytes # 0.5 (0-1.0) k/uL Eosinophils # 0.1 (0-0.7) k/uL Basophils # 0.1 (0-0.2) k/uL Sodium 138 (137-145) mmol/L Potassium 4.2 (3.5-5.1) mmol/L Chloride 101 (98-107) mmol/L Carbon Dioxide 25 (22-30) mmol/L Anion Gap 12 mmol/L BUN 13 (7-17) mg/dL Creatinine 0.45 L (0.52-1.04) mg/dL Est GFR (CKD-EPI)AfAm >90 (>60 ml/min/1.73 sqM) Est GFR (CKD-EPI)NonAf >90 (>60 ml/min/1.73 sqM) Glucose 181 H (74-99) mg/dL Plasma Lactic Acid Martín (0.7-2.0) mmol/L Calcium 10.1 (8.4-10.2) mg/dL Total Bilirubin 0.7 (0.2-1.3) mg/dL AST 33 (14-36) U/L ALT 41 H (4-34) U/L Alkaline Phosphatase 100 (38-126) U/L Total Protein 8.1 (6.3-8.2) g/dL Albumin 4.8 (3.5-5.0) g/dL Amylase 57 (30-110) U/L Lipase 30 (23-300) U/L Urine Color Yellow Urine Appearance Clear (Clear) Urine pH 6.5 (5.0-8.0) Ur Specific [place] 1.027 (1.001-1.035) Urine Protein 1+ H (Negative) Urine Glucose (UA) Negative (Negative) Urine Ketones 3+ H (Negative) Urine Blood Moderate H (Negative) Urine Nitrite Negative (Negative) Urine Bilirubin Negative (Negative) Urine Urobilinogen <2.0 (<2.0) mg/dL Ur Leukocyte Esterase Negative (Negative) Urine RBC 38 H (0-5) /hpf Urine WBC 3 (0-5) /hpf Ur Squamous Epith Cells 5 H (0-4) /hpf Urine Mucus Many H (None) /hpf Urine HCG, Qual (Not Detectd) 06/18/23 06/18/23 Range/Units 14:36 14:36 WBC (3.8-10.6) k/uL RBC (3.80-5.40) m/uL Hgb (11.4-16.0) gm/dL Hct (34.0-46.0) % MCV (80.0-100.0) fL MCH (25.0-35.0) pg MCHC (31.0-37.0) g/dL RDW (11.5-15.5) % Plt Count (150-450) k/uL MPV Neutrophils % % Lymphocytes % % Monocytes % % Eosinophils % % Basophils % % Neutrophils # (1.3-7.7) k/uL Lymphocytes # (1.0-4.8) k/uL Monocytes # (0-1.0) k/uL Eosinophils # (0-0.7) k/uL Basophils # (0-0.2) k/uL Sodium (137-145) mmol/L Potassium (3.5-5.1) mmol/L Chloride (98-107) mmol/L Carbon Dioxide (22-30) mmol/L Anion Gap mmol/L BUN (7-17) mg/dL Creatinine (0.52-1.04) mg/dL Est GFR (CKD-EPI)AfAm (>60 ml/min/1.73 sqM) Est GFR (CKD-EPI)NonAf (>60 ml/min/1.73 sqM) Glucose (74-99) mg/dL Plasma Lactic Acid Martín 1.5 (0.7-2.0) mmol/L Calcium (8.4-10.2) mg/dL Total Bilirubin (0.2-1.3) mg/dL AST (14-36) U/L ALT (4-34) U/L Alkaline Phosphatase (38-126) U/L Total Protein (6.3-8.2) g/dL Albumin (3.5-5.0) g/dL Amylase (30-110) U/L Lipase (23-300) U/L Urine Color Urine Appearance (Clear) Urine pH (5.0-8.0) Ur Specific [place] (1.001-1.035) Urine Protein (Negative) Urine Glucose (UA) (Negative) Urine Ketones (Negative) Urine Blood (Negative) Urine Nitrite (Negative) Urine Bilirubin (Negative) Urine Urobilinogen (<2.0) mg/dL Ur Leukocyte Esterase (Negative) Urine RBC (0-5) /hpf Urine WBC (0-5) /hpf Ur Squamous Epith Cells (0-4) /hpf Urine Mucus (None) /hpf Urine HCG, Qual Not Detected (Not Detectd) - Radiology Data Radiology results: report reviewed, image reviewed Disposition Clinical Impression: Nausea & vomiting Disposition: HOME SELF-CARE Condition: Stable Instructions (If sedation given, give patient instructions): Acute Nausea and Vomiting (ED) Additional Instructions: Please return to the Emergency Department if symptoms worsen or any other concerns. Prescriptions: Ondansetron Odt [Zofran Odt] 4 mg PO Q8HR PRN #10 tab PRN Reason: Nausea Is patient prescribed a controlled substance at d/c from ED?: No Referrals: Reggie Denny MD [Primary Care Provider] - 1-2 days Time of Disposition: 19:12
[2023-06-18 14:58] LABS: Basophils # (A) 0.1 k/uL (0-0.2); Basophils % (A) 0 %; Eosinophils # (A) 0.1 k/uL (0-0.7); Eosinophils % (A) 1 %; HCT 42.3 % (34.0-46.0); HGB 14.5 gm/dL (11.4-16.0); Lymphocytes # (A) 2.7 k/uL (1.0-4.8); Lymphocytes % (A) 17 %; MCHC 34.2 g/dL (31.0-37.0); MCV 81.9 fL (80.0-100.0); Mean Platelet Volume 6.7; Monocytes # (A) 0.5 k/uL (0-1.0); Monocytes % (A) 3 %; Neutrophils # (A) 12.4 k/uL (1.3-7.7); Neutrophils % (A) 79 %; Platelet Count 432 k/uL (150-450); RBC 5.16 m/uL (3.80-5.40); RDW 12.7 % (11.5-15.5); WBC 15.8 k/uL (3.8-10.6)
[2023-06-18 15:11] LABS: ALT 41 U/L (4-34); AST 33 U/L (14-36); African American GFR (CKD) >90 (>60 ml/min/1.73 sqM); Albumin 4.8 g/dL (3.5-5.0); Alkaline Phosphatase 100 U/L (38-126); Amylase 57 U/L (30-110); Anion Gap 12 mmol/L; Blood Urea Nitrogen 13 mg/dL (7-17); Calcium 10.1 mg/dL (8.4-10.2); Carbon Dioxide 25 mmol/L (22-30); Chloride 101 mmol/L (98-107); Glucose 181 mg/dL (74-99); Lipase 30 U/L (23-300); Non-African American GFR(CKD) >90 (>60 ml/min/1.73 sqM); Sodium 138 mmol/L (137-145); Total Bilirubin 0.7 mg/dL (0.2-1.3); Total Protein 8.1 g/dL (6.3-8.2)
[2023-06-18] MEDS ORDERED: droPERidol 5 MG/2 ML VIAL IVP ONE (15:16)
[2023-06-18 15:38] LABS: Potassium 4.2 mmol/L (3.5-5.1)
[2023-06-18] MEDS ORDERED: FAMOTIDINE 20 MG/2 ML VIAL IV STA (16:16)
[2023-06-18] MEDS ORDERED: diphenhydrAMINE 50 MG/ML 1 ML VIAL IVP STA (16:16)
[2023-06-18] MEDS ORDERED: KETOROLAC 15 MG/ML 1 ML VIAL IVP STA (16:17)
[2023-06-18 16:26] VITALS: RESP 22
[2023-06-18 17:39] LABS: Appearance,Urine Clear (Clear); Bilirubin,Urine Negative (Negative); Blood,Urine Moderate (Negative); Color,Urine Yellow; Glucose,Urine (UA) Negative (Negative); Ketones,Urine 3+ (Negative); Leukocyte Esterase,Urine Negative (Negative); Mucus,Urine Many /hpf; Nitrite,Urine Negative (Negative); PH, Urine 6.5 (5.0-8.0); Protein,Urine 1+ (Negative); RBC,Urine 38 /hpf (0-5); Specific Gravity,Urine 1.027 (1.001-1.035); Squamous Epithelial Cell,Urine 5 /hpf (0-4); Urobilinogen,Urine <2.0 mg/dL (<2.0); WBC,Urine 3 /hpf (0-5)
[2023-06-18 18:20] VITALS: BP 162/89; PULSE 64
--- NOTE | 2023-06-18 18:41 | CT ---
EXAMINATION TYPE: CT abdomen pelvis wo con CT DLP: 1002.9 mGycm, Automated exposure control for dose reduction was used. DATE OF EXAM: 06/18/2023 6:15 PM COMPARISON: 10/02/2022. CLINICAL INDICATION:Female, 37 years old with history of pain; nausea, vomiting and abdominal pain x 4 days. TECHNIQUE: Axial CT of the ;CT abdomen pelvis wo con;Sagittal and coronal reformats were created on a separate workstation. Contrast used: mL of , (none if empty) Oral contrast used: without Oral Contrast (none if empty) FINDINGS: LOWER CHEST: Unremarkable ABDOMEN LIVER: Unremarkable GALLBLADDER AND BILE DUCTS: The gallbladder surgically absent. PANCREAS: Unremarkable. SPLEEN: Unremarkable. ADRENAL GLANDS: Unremarkable. KIDNEYS AND URETERS: r nonobstructing left renal calculus measuring up to 10 mm. No right renal calcu li. No obstructive uropathy. PELVIS BLADDER: Unremarkable REPRODUCTIVE: Intrauterine device seen within the endometrium. ABDOMEN & PELVIS STOMACH AND BOWEL: No evidence of bowel obstruction. The appendix is normal. Scattered colonic divert icula are present. PERITONEUM/RETROPERITONEUM: No evidence of pneumoperitoneum or free fluid. VASCULATURE: No evidence of aortic aneurysm. MUSCULOSKELETAL: No acute osseous abnormalities LYMPH NODES: No gross evidence for lymphadenopathy. SOFT TISSUE/ABDOMINAL WALL: Unremarkable IMPRESSION: 1. No evidence for acute abdominal process. 2. Nonobstructing left renal calculus. 3. IUD in appropriate position. 4. Colonic diverticulosis.
[2023-06-18] MEDS ORDERED: SODIUM CHLORIDE 0.9% 500 ML 500 ML IV STA (19:09)
[2023-06-18] MEDS ORDERED: PROCHLORPERAZINE INJ 10 MG/2 ML VIAL IVP STA (19:09)
== END 2023-06-18 19:57 | disposition home or self-care (01) ==
LOC: EC 13:44
DX: R11.2 Nausea with vomiting, unspecified (principal); M19.90 Unspecified osteoarthritis, unspecified site; F17.200 Nicotine dependence, unspecified, uncomplicated; F12.90 Cannabis use, unspecified, uncomplicated; Z86.59 Personal history of other mental and behavioral disorders; Z91.041 Radiographic dye allergy status; Z91.040 Latex allergy status; Z91.013 Allergy to seafood; Z88.8 Allergy status to other drugs, medicaments and biological substances; Z79.899 Other long term (current) drug therapy
CPT/HCPCS: 36415; 80053; 82150; 83605; 83690; 85025; 81001; 81025; 74176; 99284; 96374; 96375 ×5; 96361; J1200; J0780; J2765; J3490; J1885; J1790

== ENCOUNTER 2023-11-05 12:35 | Observation (INO) | payer MEDICARE, OTHER ==
--- NOTE | 2023-11-05 13:11 | ED ---
Nausea/Vomiting/Diarrhea HPI - General Chief complaint: Nausea/Vomiting/Diarrhea Stated complaint: Vomiting Time Seen by Provider: 11/05/23 13:02 Source: patient, RN notes reviewed Mode of arrival: ambulatory Limitations: no limitations - History of Present Illness Initial comments: This is a 38-year-old female who presents to the emergency department for nausea and vomiting. Symptoms started 6 days ago. She has a history of gastroparesis, and states that she gets flareups every 6 months, which is what this feels like. She takes Zofran at home, which has not been effective. She has generalized abdominal discomfort and diarrhea as well. States that she needs IV fluids and Reglan for further management. Denies any fever/chills or sick contacts. MD complaint: nausea, vomiting, diarrhea - Related Data Home Medications Medication Instructions Recorded Confirmed Gabapentin 800 mg PO TID 10/02/22 11/05/23 oxyCODONE-APAP 10-325MG [Percocet 1 tab PO TID 10/02/22 11/05/23 10-325 mg] Albuterol Sulfate [Albuterol 1 - 2 puff INHALATION RT-Q6H PRN 09/30/23 11/05/23 Sulfate Hfa] Cetirizine HCl 10 mg PO HS 09/30/23 11/05/23 DULoxetine HCL [Cymbalta] 30 mg PO HS 09/30/23 11/05/23 Diphenox-Atrop 2.5-0.025 mg 1 tab PO HS 09/30/23 11/05/23 [Lomotil] Fluticasone/Umeclidin/Vilanter 1 puff INHALATION RT-DAILY 09/30/23 11/05/23 [Trelegy Ellipta 200-62.5-25] Glimepiride 2 mg PO HS 09/30/23 11/05/23 Lumateperone Tosylate [Caplyta] 10.5 mg PO HS 09/30/23 11/05/23 Metoclopramide HCl [Reglan] 10 mg PO HS 09/30/23 11/05/23 Omeprazole 40 mg PO HS 09/30/23 11/05/23 haloperidoL 10 mg PO HS 09/30/23 11/05/23 metFORMIN HCL [Glucophage] 500 mg PO HS 09/30/23 11/05/23 EPINEPHrine (Auto Inject) [Epipen] 0.3 mg IM ONCE PRN 11/05/23 11/05/23 Ibuprofen [Motrin] 800 mg PO TID 11/05/23 11/05/23 Ondansetron Odt [Zofran Odt] 8 mg PO BID PRN 11/05/23 11/05/23 Ubrogepant [Ubrelvy] 50 mg PO DAILY PRN 11/05/23 11/05/23 Previous Rx's Medication Instructions Recorded Atorvastatin [Lipitor] 20 mg PO HS 14 Days #14 tab 02/09/23 traZODone HCL 300 mg PO HS 14 Days #14 tab 02/09/23 Allergies Allergy/AdvReac Type Severity Reaction Status Date / Time Iodinated Contrast Media Allergy Anaphylaxis Verified 11/05/23 15:35 [Iodinated Contrast Media - Oral and] latex Allergy Rash/Hives Verified 11/05/23 15:35 shellfish derived [Shellfish] Allergy Anaphylaxis Verified 11/05/23 15:35 dulaglutide [From Trulicity] AdvReac Nausea & Verified 11/05/23 15:35 Vomiting mirtazapine [From Remeron] AdvReac Hallucinati Verified 11/05/23 15:35 ons semaglutide [From Ozempic] AdvReac Nausea & Verified 11/05/23 15:35 Vomiting Review of Systems ROS Statement: Those systems with pertinent positive or pertinent negative responses have been documented in the HPI. ROS Other: All systems not noted in ROS Statement are negative. 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 History of Any Multi-Drug Resistant Organisms: None Reported, MRSA Date of last positivie culture/infection: 2020 MDRO Source:: labia Past Surgical History: Cholecystectomy, Orthopedic Surgery Additional Past Surgical History / Comment(s): ORIF RIGHT HAND, MIRENA INSERTION, pain procedures. Past Anesthesia/Blood Transfusion Reactions: No Reported Reaction Past Psychological History: Anxiety, Depression, Schizoaffective Disorder Smoking Status: Current every day smoker Past Alcohol Use History: None Reported Past Drug Use History: None Reported - Past Family History Mother Family Medical History: Unable to Obtain Additional Family Medical History / Comment(s): Patient states does not any history of her family. General Exam Limitations: no limitations General appearance: alert, in no apparent distress Head exam: Present: atraumatic, normocephalic, normal inspection Respiratory exam: Present: normal lung sounds bilaterally. Absent: respiratory distress, wheezes, rales, rhonchi, stridor Cardiovascular Exam: Present: regular rate, normal rhythm, normal heart sounds. Absent: systolic murmur, diastolic murmur, rubs, gallop, clicks GI/Abdominal exam: Present: soft, tenderness (generalized), normal bowel sounds. Absent: distended Neurological exam: Present: alert, oriented X3, CN II-XII intact Psychiatric exam: Present: normal affect, normal mood Skin exam: Present: warm, dry, intact, normal color. Absent: rash Course Vital Signs 11/05/23 11/05/23 12:59 17:12 Temperature 98.1 F 98.0 F Pulse Rate 118 H 98 Respiratory 22 20 Rate Blood Pressure 129/87 126/72 O2 Sat by Pulse 99 97 Oximetry Medical Decision Making - Medical Decision Making This is a 38 year old female who presents to the emergency department for nausea and vomiting. Was pt. sent in by a medical professional or institution? @ -No Did you speak to anyone other than the patient for history? @ -No Did you review nursing and triage notes? @ -Yes, and I agree, it is accurate with regards to the patient's symptoms. Were old charts reviewed? @ -No Differential Diagnosis? @ -Differential Nausea and Vomiting: Gastroenteritis, cholecystitis, appendicitis, pancreatitis, migraine, benign positional vertigo, food borne illness, pyelonephritis, irritable bowel syndrome, influenza, Covid, GERD, incarcerated hernia, intestinal obstruction, this is not meant to be an all-inclusive list. EKG interpreted by me (3pts min.)? @ -Not obtained X-rays interpreted by me (1pt min.)? @ -Not obtained CT interpreted by me (1pt min.)? @ -CT scan of the abdomen and pelvis obtained. My interpretation identifies no evidence of bowel wall thickening or free air. U/S interpreted by me (1pt. min.)? @ -Not obtained What testing was considered but not performed? (CT, X-rays, U/S, labs)? Why? @ -None What meds were considered but not given? Why? @ -None Did you discuss the management of the patient with other professionals? @ -Yes, Dr. Denny, who accepts the patient for admission. Did you reconcile home meds? @ -Yes Was smoking cessation discussed for >3mins.? @ -I discussed smoking cessation for greater than 3 minutes. The risk of smoking were discussed with the patient including but not limited to risks of cancer, stroke, coronary artery disease and COPD. Also discussed with patient were multiple methods of quitting smoking. Lastly we discussed the financial cost of smoking. Was critical care preformed (if so, how long)? @ -No Were there social determinants of health that impacted care today? How? (Homelessness, low income, unemployed, alcoholism, drug addiction, transportation, low edu. Level, literacy, decrease access to med. care, fdc, rehab)? @ -No Was there de-escalation of care discussed even if they declined? (Discuss DNR or withdrawal of care, Hospice)? @ -No What co-morbidities impacted this encounter? (DM, HTN, Smoking, COPD, CAD, Cancer, CVA, Hep., AIDS, mental health diagnosis, sleep apnea, morbid obesity)? @ -Gastroparesis, IBS, smoking, DM, HLD Was patient admitted / discharged? @ -Admitted. Lab work demonstrates leukocytosis with a white blood cell count of 26.1. Potassium is low at 3.2 and magnesium is also low at 1.4. She also has signs of severe dehydration with a GFR of 37 and creatinine of 1.72. Previous renal testing revealed a GFR greater than 90. Lactic acid also elevated at 3.8. Urinalysis does have elevated white blood cells and some bacteria, but was not overtly positive for infection. There is also a large amount of blood, which the cause of is not currently clear. Urine sent for culture. CT scan of the abdomen and pelvis obtained revealing no acute process. 2 g of magnesium sulfate and 20 mEq of potassium chloride were administered. She was initially treated with Reglan with temporary improvement, followed by Compazine. She had improvement in symptoms for a longer period of time with the compazine, however the nausea then returned and she was given a dose of Zofran. Given the severity of the patient's dehydration, patient admitted to medicine for intractable nausea and vomiting and SCOTTY. Maintenance fluids initiated as well. Undiagnosed new problem with uncertain prognosis? @ -None Drug Therapy requiring intensive monitoring for toxicity (Heparin, Nitro, Insulin, Cardizem)? @ -None Were any procedures done? @ -None Diagnosis/symptom? @ -Intractable nausea and vomiting, SCOTTY Acute, or Chronic, or Acute on Chronic? @ -Acute Uncomplicated (without systemic symptoms) or Complicated (systemic symptoms)? @ -Complicated Side effects of treatment? @ -None Exacerbation, Progression, or Severe Exacerbation] @ -Not applicable Poses a threat to life or bodily function? @ -Yes This case was discussed in detail with the attending ED physician, Dr. Ordonez. Presentation, findings, and treatment plan discussed in detail as well. - Lab Data Result diagrams: 11/05/23 13:21 11/05/23 14:31 Lab Results 11/05/23 11/05/23 11/05/23 Range/Units 13:21 13:21 13:21 WBC 26.1 H (3.8-10.6) k/uL RBC 5.54 H (3.80-5.40) m/uL Hgb 15.7 (11.4-16.0) gm/dL Hct 46.0 (34.0-46.0) % MCV 83.0 (80.0-100.0) fL MCH 28.3 (25.0-35.0) pg MCHC 34.1 (31.0-37.0) g/dL RDW 14.5 (11.5-15.5) % Plt Count 724 H (150-450) k/uL MPV 7.7 Neutrophils % 74 % Lymphocytes % 18 % Monocytes % 6 % Eosinophils % 1 % Basophils % 0 % Neutrophils # 19.3 H (1.3-7.7) k/uL Lymphocytes # 4.7 (1.0-4.8) k/uL Monocytes # 1.4 H (0-1.0) k/uL Eosinophils # 0.3 (0-0.7) k/uL Basophils # 0.1 (0-0.2) k/uL Sodium (137-145) mmol/L Potassium (3.5-5.1) mmol/L Chloride (98-107) mmol/L Carbon Dioxide (22-30) mmol/L Anion Gap mmol/L BUN (7-17) mg/dL Creatinine (0.52-1.04) mg/dL Est GFR (CKD-EPI)AfAm (>60 ml/min/1.73 sqM) Est GFR (CKD-EPI)NonAf (>60 ml/min/1.73 sqM) Glucose (74-99) mg/dL Lactic Ac Sepsis Rflx Plasma Lactic Acid Martín (0.7-2.0) mmol/L Calcium (8.4-10.2) mg/dL Magnesium (1.6-2.3) mg/dL Total Bilirubin (0.2-1.3) mg/dL AST (14-36) U/L ALT (4-34) U/L Alkaline Phosphatase (38-126) U/L Total Protein (6.3-8.2) g/dL Albumin (3.5-5.0) g/dL Amylase (30-110) U/L Lipase (23-300) U/L Urine Color Yellow Urine Appearance Turbid H (Clear) Urine pH 6.0 (5.0-8.0) Ur Specific Sully 1.029 (1.001-1.035) Urine Protein 3+ H (Negative) Urine Glucose (UA) Trace H (Negative) Urine Ketones Trace H (Negative) Urine Blood Large H (Negative) Urine Nitrite Negative (Negative) Urine Bilirubin 1+ H (Negative) Urine Urobilinogen 2.0 (<2.0) mg/dL Ur Leukocyte Esterase Trace H (Negative) Urine RBC 108 H (0-5) /hpf Urine WBC 14 H (0-5) /hpf Ur Squamous Epith Cells 5 H (0-4) /hpf Urine Bacteria Few H (None) /hpf Hyaline Casts 300 H (0-2) /lpf Urine Mucus Few H (None) /hpf Urine HCG, Qual Not Detected (Not Detectd) 11/05/23 11/05/23 11/05/23 Range/Units 14:31 14:31 14:56 WBC (3.8-10.6) k/uL RBC (3.80-5.40) m/uL Hgb (11.4-16.0) gm/dL Hct (34.0-46.0) % MCV (80.0-100.0) fL MCH (25.0-35.0) pg MCHC (31.0-37.0) g/dL RDW (11.5-15.5) % Plt Count (150-450) k/uL MPV Neutrophils % % Lymphocytes % % Monocytes % % Eosinophils % % Basophils % % Neutrophils # (1.3-7.7) k/uL Lymphocytes # (1.0-4.8) k/uL Monocytes # (0-1.0) k/uL Eosinophils # (0-0.7) k/uL Basophils # (0-0.2) k/uL Sodium 138 (137-145) mmol/L Potassium 3.2 L (3.5-5.1) mmol/L Chloride 100 (98-107) mmol/L Carbon Dioxide 20 L (22-30) mmol/L Anion Gap 18 mmol/L BUN 24 H (7-17) mg/dL Creatinine 1.72 H (0.52-1.04) mg/dL Est GFR (CKD-EPI)AfAm 42 (>60 ml/min/1.73 sqM) Est GFR (CKD-EPI)NonAf 37 (>60 ml/min/1.73 sqM) Glucose 191 H (74-99) mg/dL Lactic Ac Sepsis Rflx Y Plasma Lactic Acid Martín 3.8 H* (0.7-2.0) mmol/L Calcium 9.8 (8.4-10.2) mg/dL Magnesium 1.4 L (1.6-2.3) mg/dL Total Bilirubin 0.5 (0.2-1.3) mg/dL AST 32 (14-36) U/L ALT 40 H (4-34) U/L Alkaline Phosphatase 117 (38-126) U/L Total Protein 8.0 (6.3-8.2) g/dL Albumin 4.8 (3.5-5.0) g/dL Amylase 58 (30-110) U/L Lipase 27 (23-300) U/L Urine Color Urine Appearance (Clear) Urine pH (5.0-8.0) Ur Specific Sully (1.001-1.035) Urine Protein (Negative) Urine Glucose (UA) (Negative) Urine Ketones (Negative) Urine Blood (Negative) Urine Nitrite (Negative) Urine Bilirubin (Negative) Urine Urobilinogen (<2.0) mg/dL Ur Leukocyte Esterase (Negative) Urine RBC (0-5) /hpf Urine WBC (0-5) /hpf Ur Squamous Epith Cells (0-4) /hpf Urine Bacteria (None) /hpf Hyaline Casts (0-2) /lpf Urine Mucus (None) /hpf Urine HCG, Qual (Not Detectd) - Radiology Data Radiology results: report reviewed, image reviewed Disposition Clinical Impression: Intractable nausea and vomiting, SCOTTY (acute kidney injury), Nicotine dependence, Hypomagnesemia, Hypokalemia Disposition: ADMITTED IP TO THIS [facility] Time of Disposition: 15:24
[2023-11-05] MEDS: SODIUM CHLORIDE 0.9% 2,000 ML IV STA (13:43)
[2023-11-05] MEDS: FAMOTIDINE 20 MG/2 ML VIAL IV STA (13:44)
[2023-11-05] MEDS: METOCLOPRAMIDE 5 MG/ML 2 ML VIAL IVP STA (13:44)
[2023-11-05 13:52] LABS: Basophils # (A) 0.1 k/uL (0-0.2); Basophils % (A) 0 %; Eosinophils # (A) 0.3 k/uL (0-0.7); Eosinophils % (A) 1 %; HGB 15.7 gm/dL (11.4-16.0); Lymphocytes # (A) 4.7 k/uL (1.0-4.8); Lymphocytes % (A) 18 %; MCH 28.3 pg (25.0-35.0); MCHC 34.1 g/dL (31.0-37.0); Mean Platelet Volume 7.7; Monocytes # (A) 1.4 k/uL (0-1.0); Monocytes % (A) 6 %; Neutrophils # (A) 19.3 k/uL (1.3-7.7); Neutrophils % (A) 74 %; Platelet Count 724 k/uL (150-450); RBC 5.54 m/uL (3.80-5.40); RDW 14.5 % (11.5-15.5); WBC 26.1 k/uL (3.8-10.6)
[2023-11-05 14:13] LABS: Appearance,Urine Turbid (Clear); Bacteria,Urine Few /hpf; Bilirubin,Urine 1+ (Negative); Blood,Urine Large (Negative); Color,Urine Yellow; Glucose,Urine (UA) Trace (Negative); Hyaline Casts,Urine 300 /lpf (0-2); Ketones,Urine Trace (Negative); Leukocyte Esterase,Urine Trace (Negative); Mucus,Urine Few /hpf; Nitrite,Urine Negative (Negative); Protein,Urine 3+ (Negative); RBC,Urine 108 /hpf (0-5); Specific Gravity,Urine 1.029 (1.001-1.035); Squamous Epithelial Cell,Urine 5 /hpf (0-4); WBC,Urine 14 /hpf (0-5)
[2023-11-05] MEDS: HYDROmorphone 1 MG/ML 1 ML SYRINGE IVP STA (14:25)
[2023-11-05] MEDS: PROCHLORPERAZINE INJ 10 MG/2 ML VIAL IVP STA (14:26)
[2023-11-05 14:54] LABS: ALT 40 U/L (4-34); AST 32 U/L (14-36); African American GFR (CKD) 42 (>60 ml/min/1.73 sqM); Albumin 4.8 g/dL (3.5-5.0); Alkaline Phosphatase 117 U/L (38-126); Amylase 58 U/L (30-110); Anion Gap 18 mmol/L; Blood Urea Nitrogen 24 mg/dL (7-17); Calcium 9.8 mg/dL (8.4-10.2); Carbon Dioxide 20 mmol/L (22-30); Chloride 100 mmol/L (98-107); Glucose 191 mg/dL (74-99); Lipase 27 U/L (23-300); Magnesium 1.4 mg/dL (1.6-2.3); Non-African American GFR(CKD) 37 (>60 ml/min/1.73 sqM); Potassium 3.2 mmol/L (3.5-5.1); Sodium 138 mmol/L (137-145); Total Bilirubin 0.5 mg/dL (0.2-1.3)
--- NOTE | 2023-11-05 15:16 | CT ---
EXAMINATION TYPE: CT abdomen pelvis wo con DATE OF EXAM: 11/05/2023 COMPARISON: 06/18/2023 INDICATION: gastroparesis, flare-up DLP: 1059.4 mGycm, Automated exposure control for dose reduction was used. CONTRAST: 0 mL of Isovue 300. Study performed without Oral Contrast TECHNIQUE: Axial images were obtained from above the diaphragm to the pubic rami in the axial plane a t 5 mm thick sections. Reconstructed images are reviewed on the computer in the coronal plane. FINDINGS: Limited CT sections are obtained the lung bases. The lung bases are clear. CT ABDOMEN: Stomach is nondilated. No suspicious wall abnormality is evident. Proximal duodenum as vi sualized is normal. Liver: Normal Spleen: Normal Pancreas: Normal Adrenal glands: The adrenal glands are normal. Gallbladder: Surgically absent Kidneys: No masses are evident. No hydronephrosis is present. No cysts are present. There is a 1.2 x 0.8 cm nonobstructing renal stone in the mid left kidney. Aorta: Normal Inferior vena cava: Normal. CT PELVIS: Loops of bowel within the abdomen and pelvis are normal. This study is lateral contrast limiting bowel evaluation Appendix: Normal as visualized. Urinary bladder: Normal. Genitourinary structures: Uterus contains an IUD. Adnexa are normal. Osseous structures: No suspicious lytic or sclerotic lesions. IMPRESSION: 1. Nonobstructing 1.2 cm left renal stone. 2. No discrete gastric abnormality radiographically apparent
[2023-11-05] MEDS ORDERED: HYDROmorphone 0.5 MG/0.5 ML SYRINGE IVP PRN (15:24)
[2023-11-05] MEDS ORDERED: NALOXONE 0.4 MG/ML 1 ML VIAL IV PRN (15:24)
[2023-11-05] MEDS ORDERED: HYDROmorphone 1 MG/ML 1 ML SYRINGE IVP PRN (15:24)
[2023-11-05] MEDS ORDERED: ACETAMINOPHEN TAB 325 MG TAB PO PRN (15:25)
[2023-11-05] MEDS ORDERED: PROCHLORPERAZINE INJ 10 MG/2 ML VIAL IVP PRN (15:26)
[2023-11-05] MEDS: SODIUM CHLORIDE 0.9% 1,000 ML IV STA (15:36)
[2023-11-05] MEDS: ONDANSETRON 4 MG/2 ML VIAL IVP STA (15:36)
[2023-11-05] MEDS: MAGNESIUM SULFATE-D5W PMX 1 GM in DEXTROSE/WATER 1 100ML.BAG IVPB SCH (15:38)
[2023-11-05] MEDS ORDERED: ALBUTEROL NEBULIZED 2.5 MG/3 ML INHALATION PRN (15:50)
[2023-11-05] MEDS ORDERED: ONDANSETRON ODT 8 MG TAB.RAPDIS PO PRN (15:50)
[2023-11-05] MEDS ORDERED: UBROGEPANT 50 MG PO PRN (15:50)
[2023-11-05] MEDS: oxyCODONE-APAP 10-325MG 1 EACH TAB PO SCH (16:51)
[2023-11-05] MEDS: GABAPENTIN 400 MG CAP PO SCH (16:51)
[2023-11-05] MEDS: ACETAMINOPHEN IV (For NPO) 1,000 MG in EMPTY BAG 1 BAG IVPB STA (16:54)
[2023-11-05] MEDS: haloperidoL 5 MG TAB PO SCH (21:09)
[2023-11-05] MEDS: LORATADINE 10 MG TAB PO SCH (21:09)
[2023-11-05] MEDS: DULoxetine HCL 30 MG CAPSULE.DR PO SCH (21:09)
[2023-11-05] MEDS: metFORMIN 500 MG TAB PO SCH (21:09)
[2023-11-05 21:10] LABS: Glucose,Whole Blood 117 mg/dL (70-110)
[2023-11-05] MEDS: POTASSIUM CHLORIDE 20 MEQ in WATER FOR INJECTION 1 100ML.BAG IVPB STA (21:10)
[2023-11-05] MEDS: GLIMEPIRIDE 2 MG TAB PO SCH (21:10)
[2023-11-05] MEDS: DIPHENOX-ATROP 2.5-0.025 MG 1 EACH TAB PO SCH (21:10)
[2023-11-05] MEDS: ATORVASTATIN 20 MG TAB PO SCH (21:10)
[2023-11-05] MEDS: METOCLOPRAMIDE 10 MG TAB PO SCH (21:10)
[2023-11-05] MEDS: PANTOPRAZOLE 40 MG TABLET PO SCH (21:10)
[2023-11-05] MEDS: traZODone HCL 100 MG TAB PO SCH (21:10)
[2023-11-05] MEDS: LUMATEPERONE TOSYLATE PO SCH (21:15)
[2023-11-06] MEDS: ONDANSETRON 4 MG/2 ML VIAL IVP PRN (04:26)
[2023-11-06] MEDS: ASPIRIN-ACET-CAFF 250-250-65MG 1 EACH TAB PO PRN (04:26)
[2023-11-06] MEDS: METOCLOPRAMIDE 5 MG/ML 2 ML VIAL IVP PRN (08:08)
[2023-11-06] MEDS: SYMBICORT 160-4.5 MCG INHALER INHALATION SCH (08:54)
[2023-11-06] MEDS: IPRATROPIUM 0.5 MG/2.5 ML NEBU INHALATION SCH (08:54)
[2023-11-06] MEDS ORDERED: PANTOPRAZOLE 40 MG/10 ML VIAL IV SCH (09:00)
[2023-11-06 10:57] LABS: Glucose,Whole Blood 161 mg/dL (70-110)
[2023-11-06 17:13] LABS: ALT 43 U/L (4-34); AST 48 U/L (14-36); African American GFR (CKD) >90 (>60 ml/min/1.73 sqM); Albumin 4.5 g/dL (3.5-5.0); Albumin/Globulin Ratio 1.6; Alkaline Phosphatase 103 U/L (38-126); Anion Gap 13 mmol/L; Blood Urea Nitrogen 12 mg/dL (7-17); Calcium 9.6 mg/dL (8.4-10.2); Carbon Dioxide 20 mmol/L (22-30); Chloride 102 mmol/L (98-107); Globulin 2.9 g/dL; Glucose 147 mg/dL (74-99); Non-African American GFR(CKD) >90 (>60 ml/min/1.73 sqM); Potassium 3.4 mmol/L (3.5-5.1); Sodium 135 mmol/L (137-145); Total Bilirubin 0.5 mg/dL (0.2-1.3); Total Protein 7.4 g/dL (6.3-8.2)
[2023-11-06 17:22] LABS: HCT 39.7 % (34.0-46.0); HGB 13.2 gm/dL (11.4-16.0); MCH 28.3 pg (25.0-35.0); MCHC 33.2 g/dL (31.0-37.0); MCV 85.3 fL (80.0-100.0); Mean Platelet Volume 7.1; Platelet Count 447 k/uL (150-450); RBC 4.66 m/uL (3.80-5.40); WBC 13.3 k/uL (3.8-10.6)
[2023-11-06 17:38] LABS: Lymphocytes # (M) 6.38 k/uL (1.0-4.8); Monocytes # (M) 0.67 k/uL (0-1.0); Neutrophils # (M) 6.25 k/uL (1.3-7.7); Neutrophils % (M) 47 %; Nucleated Red Blood Cells 0 /100 WBC (0-0); Total Cells Counted 100
--- NOTE | 2023-11-06 18:40 | HP ---
HISTORY AND PHYSICAL CHIEF COMPLAINT: Intractable nausea and vomiting, dehydration, and acute kidney injury. HISTORY OF PRESENT ILLNESS: This is another admission for this 38-year-old obese diabetic, who has been having nausea and vomiting for about 6 days. She believes it is due to her gastroparesis. She has had no diarrhea. She came to the emergency room because the vomiting was unstoppable. There her potassium was low at 3.2 and her BUN was up to 24 with a creatinine of 1.72. REVIEW OF SYSTEMS: She has had no fever, chills, hematemesis, melena, hematochezia, jaundice, or urinary complaints, etc. Past medical history, family history, personal and social histories are all otherwise unremarkable or noncontributory. PHYSICAL EXAMINATION: VITAL SIGNS: Pulse is 100 and respirations are 34. Remainder of her vital signs are normal. She is overweight. HEAD, EARS, EYES, NOSE, MOUTH, AND THROAT: Normal. CHEST: Clear. CARDIAC: Normal. ABDOMEN: Protuberant, soft, and slightly tender in the upper abdomen, probably due to abdominal wall myalgias from vomiting. Bowel sounds are present. EXTREMITIES: Normal. NEUROLOGICAL: She is intact. DIAGNOSES: She was admitted to the hospital with diagnoses: 1. Intractable nausea and vomiting. 2. Probable gastroenteritis, viral. 3. Gastroparesis. 4. Dehydration. 5. Hypokalemia. 6. Prerenal azotemia. 7. Diabetes. PLAN: 1. Bed rest. 2. IV fluids. 3. Antiemetics. 4. Monitor potassium and renal function. MMODL / IJN: [id number] /
--- NOTE | 2023-11-07 04:10 | PN ---
PROGRESS NOTE CHIEF COMPLAINT: Intractable nausea, vomiting, diabetes, and acute kidney injury. HISTORY OF PRESENT ILLNESS: This lady is doing better. She is no longer nauseated and vomiting. Urine creatinine are being rechecked. PHYSICAL EXAMINATION: ABDOMEN: Soft, nontender. Bowel sounds are present. CHEST: Clear. CARDIAC: Normal. IMPRESSION: 1. Nausea and vomiting. 2. Dehydration. 3. Acute kidney injury. 4. Gastroparesis. PLAN: Advance diet and probably home tomorrow. MMODL / IJN: [id number] /
[2023-11-07 10:28] LABS: ALT 47 U/L (4-34); AST 47 U/L (14-36); African American GFR (CKD) >90 (>60 ml/min/1.73 sqM); Albumin 4.4 g/dL (3.5-5.0); Albumin/Globulin Ratio 1.5; Alkaline Phosphatase 91 U/L (38-126); Anion Gap 12 mmol/L; Blood Urea Nitrogen 11 mg/dL (7-17); Calcium 9.5 mg/dL (8.4-10.2); Carbon Dioxide 22 mmol/L (22-30); Chloride 101 mmol/L (98-107); Glucose 157 mg/dL (74-99); Non-African American GFR(CKD) >90 (>60 ml/min/1.73 sqM); Potassium 3.6 mmol/L (3.5-5.1); Sodium 135 mmol/L (137-145); Total Bilirubin 0.6 mg/dL (0.2-1.3); Total Protein 7.4 g/dL (6.3-8.2)
[2023-11-07 13:03] LABS: Basophils # (A) 0.04 X 10*3/uL (0.00-0.10); Basophils % (A) 0.4 %; Eosinophils # (A) 0.07 X 10*3/uL (0.04-0.35); Eosinophils % (A) 0.7 %; HCT 39.1 % (37.2-46.3); HGB 12.9 g/dL (12.0-15.0); Lymphocytes # (A) 3.82 X 10*3/uL (0.90-5.00); MCH 27.7 pg (27.0-32.0); MCV 84.1 FL (80.0-97.0); Mean Platelet Volume 9.2 FL (9.5-12.2); Monocytes # (A) 0.86 X 10*3/uL (0.20-1.00); Monocytes % (A) 8.8 %; NRBC Per 100 WBC 0 X 10*3/uL (0.00-0.01); Neutrophils # (A) 4.96 X 10*3/uL (1.80-7.70); Neutrophils % (A) 50.6 %; Platelet Count 411 X 10*3/uL (140-440); RBC 4.65 X 10*6/uL (4.10-5.20); RDW 13.6 % (11.5-14.5)
[2023-11-08 02:38] VITALS: RESP 16
--- NOTE | 2023-11-08 04:07 | PN ---
PROGRESS NOTE CHIEF COMPLAINT: Intractable nausea and vomiting and dehydration. HISTORY OF PRESENT ILLNESS: This lady is doing a bit better, but she is still occasionally nauseated, and she threw up again today. LABORATORY DATA: Laboratory studies are unremarkable. PHYSICAL EXAMINATION: VITAL SIGNS: Normal. CHEST: Clear. CARDIAC: Normal. ABDOMEN: Soft, nontender. IMPRESSION: 1. Bowel gas and gastroenteritis. 2. Intractable nausea. 3. Dehydration. 4. Obesity. PLAN: Hold discharge for another day. MMODL / IJN: [id number] /
[2023-11-08 08:16] VITALS: BP 117/84; PULSE 105; TEMP 97.8
== END 2023-11-08 10:49 | disposition home or self-care (01) ==
LOC: EC 12:35 → 6NMEDSUR 15:22
PROVIDERS: ADMIT Family Medicine; ATTEND Family Medicine
DX: K52.9 Noninfective gastroenteritis and colitis, unspecified (principal); E11.43 Type 2 diabetes mellitus with diabetic autonomic (poly)neuropathy; K31.84 Gastroparesis; N17.9 Acute kidney failure, unspecified; E87.6 Hypokalemia; E83.42 Hypomagnesemia; E86.0 Dehydration; R79.89 Other specified abnormal findings of blood chemistry; J45.909 Unspecified asthma, uncomplicated; E78.5 Hyperlipidemia, unspecified; F25.9 Schizoaffective disorder, unspecified; F32.A Depression, unspecified; F41.9 Anxiety disorder, unspecified; F17.200 Nicotine dependence, unspecified, uncomplicated; E66.9 Obesity, unspecified; Z68.38 Body mass index [BMI] 38.0-38.9, adult; Z79.899 Other long term (current) drug therapy; Z79.84 Long term (current) use of oral hypoglycemic drugs; Z79.51 Long term (current) use of inhaled steroids; Z91.040 Latex allergy status
CPT/HCPCS: 96376 ×2; 96366; 96367; 96361; 96365; 96375; 99285; 36415; 80053 ×3; 82150; 83605; 83690; 83735; 85025 ×3; 81001; 81025; 87086; 74176; G0378 ×4; J0780; J2765 ×3; J3480; J2405 ×2; J3490; J1170; J3475

== ENCOUNTER 2023-12-13 20:43 | Observation (INO) | payer MEDICARE, OTHER ==
[2023-12-13 22:47] LABS: Appearance,Urine Cloudy (Clear); Bilirubin,Urine 1+ (Negative); Blood,Urine Moderate (Negative); Color,Urine Dark Yellow; Glucose,Urine (UA) 1+ (Negative); Hyaline Casts,Urine 67 /lpf (0-2); Ketones,Urine 1+ (Negative); Leukocyte Esterase,Urine Trace (Negative); Mucus,Urine Many /hpf; Nitrite,Urine Negative (Negative); PH, Urine 6.5 (5.0-8.0); Protein,Urine 3+ (Negative); RBC,Urine 27 /hpf (0-5); Specific Gravity,Urine 1.033 (1.001-1.035); Squamous Epithelial Cell,Urine 16 /hpf (0-4); WBC,Urine 14 /hpf (0-5)
--- NOTE | 2023-12-13 23:03 | ED ---
General Adult HPI - General Chief complaint: Nausea/Vomiting/Diarrhea Stated complaint: Nausea Time Seen by Provider: 12/13/23 21:34 Source: patient, RN notes reviewed, old records reviewed Mode of arrival: wheelchair Limitations: no limitations - History of Present Illness Initial comments: patient is a 38-year-old female with past medical history remarkable for gastroparesis who presents emergency department complaining of 1 day of abdomi nal pain with nausea and vomiting. Has a history of diabetes. Has a history of asthma and GERD. States that Reglan can typically helps with symptoms as well as pain meds. Symptoms been ongoing for 1 day. No known fevers. No urinary complaints. Pain is primarily in the epigastric and periumbilical region which is typical for patient's gastroparesis. Has a history of a cholecystectomy. Denies any constipation but does endorse a small amount of loose stool. Recently had CT imaging last month. Presents for further evaluation at this time. No known sick contacts. - Related Data Home Medications Medication Instructions Recorded Confirmed Gabapentin 800 mg PO TID 10/02/22 12/13/23 oxyCODONE-APAP 10-325MG [Percocet 1 tab PO TID 10/02/22 12/13/23 10-325 mg] Albuterol Sulfate [Albuterol 1 - 2 puff INHALATION RT-Q6H PRN 09/30/23 12/13/23 Sulfate Hfa] Cetirizine HCl 10 mg PO HS 09/30/23 12/13/23 DULoxetine HCL [Cymbalta] 30 mg PO HS 09/30/23 12/13/23 Diphenox-Atrop 2.5-0.025 mg 1 tab PO HS 09/30/23 12/13/23 [Lomotil] Fluticasone/Umeclidin/Vilanter 1 puff INHALATION RT-DAILY 09/30/23 12/13/23 [Trelegy Ellipta 200-62.5-25] Glimepiride 2 mg PO HS 09/30/23 12/13/23 Lumateperone Tosylate [Caplyta] 10.5 mg PO HS 09/30/23 12/13/23 Metoclopramide HCl [Reglan] 10 mg PO HS 09/30/23 12/13/23 Omeprazole 40 mg PO HS 09/30/23 12/13/23 haloperidoL 10 mg PO HS 09/30/23 12/13/23 metFORMIN HCL [Glucophage] 500 mg PO HS 09/30/23 12/13/23 EPINEPHrine (Auto Inject) [Epipen] 0.3 mg IM ONCE PRN 11/05/23 12/13/23 Ibuprofen [Motrin] 800 mg PO TID 11/05/23 12/13/23 Ondansetron Odt [Zofran ODT] 8 mg PO BID PRN 11/05/23 12/13/23 Ubrogepant [Ubrelvy] 50 mg PO DAILY PRN 11/05/23 12/13/23 Previous Rx's Medication Instructions Recorded Atorvastatin [Lipitor] 20 mg PO HS 14 Days #14 tab 02/09/23 traZODone HCL 300 mg PO HS 14 Days #14 tab 02/09/23 Allergies Allergy/AdvReac Type Severity Reaction Status Date / Time Iodinated Contrast Media Allergy Anaphylaxis Verified 12/13/23 21:29 [Iodinated Contrast Media - Oral and] latex Allergy Rash/Hives Verified 12/13/23 21:29 shellfish derived [Shellfish] Allergy Anaphylaxis Verified 12/13/23 21:29 dulaglutide [From Trulicity] AdvReac Nausea & Verified 12/13/23 21:29 Vomiting mirtazapine [From Remeron] AdvReac Hallucinati Verified 12/13/23 21:29 ons semaglutide [From Ozempic] AdvReac Nausea & Verified 12/13/23 21:29 Vomiting Review of Systems ROS Statement: Those systems with pertinent positive or pertinent negative responses have been documented in the HPI. Review of Systems: CONST: Denies fever EYES: Denies blurry vision ENT: Denies nasal congestion C/V: Denies Chest pain RESP: Denies shortness of breath GI: Endorses abdominal pain : Denies dysuria SKIN: Denies rash. MSK: Denies joint pain. NEURO: Denies headache ROS Other: All systems not noted in ROS Statement are negative. 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 History of Any Multi-Drug Resistant Organisms: None Reported, MRSA Date of last positivie culture/infection: 2020 MDRO Source:: labia Past Surgical History: Cholecystectomy, Orthopedic Surgery Additional Past Surgical History / Comment(s): ORIF RIGHT HAND, MIRENA INSERTION, pain procedures.COLONOSCOPY/EGD Past Anesthesia/Blood Transfusion Reactions: No Reported Reaction Past Psychological History: Anxiety, Depression, Schizoaffective Disorder Smoking Status: Current every day smoker Past Alcohol Use History: None Reported Past Drug Use History: Marijuana - Past Family History Mother Family Medical History: Unable to Obtain Additional Family Medical History / Comment(s): Patient states does not any history of her family. General Exam - General Exam Comments Initial Comments: General: Appears in mild distress secondary to abdominal pain. HEAD: Normal with no signs of head trauma. EYES: PERRLA, EOMI, conjunctiva normal, no discharge. ENT: Hearing grossly intact, normal oropharynx. RESPIRATORY: Clear breath sounds bilaterally. No wheezes, rales, or rhonchi. C/V: Regular rate and rhythm. S1 and S2 auscultated, no edema, peripheral pulses 2+ and intact throughout ABD: Abdomen is soft, nondistended. Tender to palpation epigastric region. No guarding or rebound tenderness. No peritoneal signs. EXT: Normal range of motion, no obvious deformity SKIN: No rashes or lesions observed on exposed skin. NEURO: Alert and oriented x 4. Limitations: no limitations Course Vital Signs 12/13/23 12/14/23 21:24 00:08 Temperature 98.1 F Pulse Rate 87 80 Respiratory 18 20 Rate Blood Pressure 127/90 123/72 O2 Sat by Pulse 98 100 Oximetry Medical Decision Making - Medical Decision Making Was pt. sent in by a medical professional or institution (, PA, SECTION 8 PROPERTY MANAGER, urgent care, hospital, or skilled nursing...) When possible be specific @ -No Did you speak to anyone other than the patient for history (EMS, parent, family, police, friend...)? What history was obtained from this source @ -No Did you review nursing and triage notes (agree or disagree)? Why? @ -I reviewed and agree with nursing and triage notes Were old charts reviewed (outside hosp., previous admission, EMS record, old EKG, old radiological studies, urgent care reports/EKG's, skilled nursing records)? Report findings @ -Chart reviewed which did confirm patient has a history of gastroparesis. Has a scheduled colonoscopy for tomorrow. Reviewed chart from admission on November 04 when she was admitted for intractable nausea and vomiting. Prior CT imaging reviewed from November 05, 2023. Showed a nonobstructing renal stone but no other obvious findings. Differential Diagnosis (chest pain, altered mental status, abdominal pain women, abdominal pain men, vaginal bleeding, weakness, fever, dyspnea, syncope, headache, dizziness, GI bleed, back pain, seizure, CVA, palpatations, mental health, musculoskeletal)? @ -Differential Abdominal Pain Women: Appendicitis, Cholecystitis, diverticulosis, ischemic bowel, pancreatitis, hepatitis, UTI, gastroenteritis, AAA, incarcerated hernia, bowel obstruction, constipation, inflammatory bowel, hepatitis, peptic ulcer disease, splenic infarction, perforated viscus, vulvitis, ovarian torsion, PID, kidney stone, placenta abruption, this is not meant to be an all-inclusive list EKG interpreted by me (3pts min.). @ -None done X-rays interpreted by me (1pt min.). @ -None done CT interpreted by me (1pt min.). @ - CT abdomen pelvis returned remarkable for suspected mild uncomplicated colitis. Suspicious for diarrhea. U/S interpreted by me (1pt. min.). @ -None done What testing was considered but not performed or refused? (CT, X-rays, U/S, labs)? Why? @ -Initially deferred CT imaging but based on labs we will obtain. What meds were considered but not given or refused? Why? @ -None Did you discuss the management of the patient with other professionals (professionals i.e. , PA, SECTION [employer] PROPERTY MANAGER, lab, RT, psych nurse, social welfare administrator, hat renovator, teacher, tactical debriefer officer, casework specialist)? Give summary @ -Dr. Denny notified of the admission. Was smoking cessation discussed for >3mins.? @ -No Was critical care preformed (if so, how long)? @ -No Were there social determinants of health that impacted care today? How? (Homel essness, low income, unemployed, alcoholism, drug addiction, transportation, low edu. Level, literacy, decrease access to med. care, prison, rehab)? @ -No Was there de-escalation of care discussed even if they declined (Discuss DNR or withdrawal of care, Hospice)? DNR status @ -No What co-morbidities impacted this encounter? (DM, HTN, Smoking, COPD, CAD, Cancer, CVA, ARF, Chemo, Hep., AIDS, mental health diagnosis, sleep apnea, morbid obesity)? @ -Gastroparesis Was patient admitted / discharged? Hospital course, mention meds given and route, prescriptions, significant lab abnormalities, going to OR and other pertinent info. @ -Based on patient's presentation and physical exam, presents emergency department complaining of typical gastroparesis like symptoms. We will symptomatically treat the patient with IV fluids, Reglan, morphine, Protonix, Benadryl. Will obtain abdominal laboratory studies. I did offer to obtain a CT imaging however we both agreed to defer at this time as she recently had CT imaging last month. These times she is currently having are very typical for her gastroparesis. Vital signs within acceptable limits.Patient's laboratory studies returned remarkable for leukocytosis of 23, which could be hemoconcentration reactive however cannot definitively rule out acute process at this time considering the intractable nausea and vomiting. Patient is not . Urinalysis is contaminated. No obvious source of infection at this time. At this time I did recommend CT imaging the abdomen pelvis due to the leukocytosis and patient was in agreement this plan. CT returned remarkable for suspected mild uncomplicated colitis. Suspicious for diarrhea. On reevaluation, patient still feeling nauseous. Will like to admit the patient for intractable nausea and vomiting as well as his leukocytosis of unknown etiology. Patient was in agreement this plan. Dr. Denny notified of the admission. Undiagnosed new problem with uncertain prognosis? @ -No Drug Therapy requiring intensive monitoring for toxicity (Heparin, Nitro, Insulin, Cardizem)? @ -No Were any procedures done? @ -No Diagnosis/symptom? @ -Leukocytosis, intractable nausea and vomiting, colitis, dehydration Acute, or Chronic, or Acute on Chronic? @ -[default] Uncomplicated (without systemic symptoms) or Complicated (systemic symptoms)? @ -[default] Side effects of treatment? @ -[none] Exacerbation, Progression, or Severe Exacerbation] @ -[no] Poses a threat to life or bodily function? @ -[no] - Lab Data Result diagrams: 12/13/23 22:50 12/13/23 22:50 Lab Results 12/13/23 12/13/23 12/13/23 Range/Units 22:01 22:50 22:50 WBC 23.0 H (3.8-10.6) k/uL RBC 4.94 (3.80-5.40) m/uL Hgb 13.7 (11.4-16.0) gm/dL Hct 42.5 (34.0-46.0) % MCV 86.0 (80.0-100.0) fL MCH 27.8 (25.0-35.0) pg MCHC 32.4 (31.0-37.0) g/dL RDW 13.8 (11.5-15.5) % Plt Count 623 H (150-450) k/uL MPV 7.5 Neutrophils % 84 % Lymphocytes % 11 % Monocytes % 3 % Eosinophils % 1 % Basophils % 1 % Neutrophils # 19.2 H (1.3-7.7) k/uL Lymphocytes # 2.6 (1.0-4.8) k/uL Monocytes # 0.8 (0-1.0) k/uL Eosinophils # 0.2 (0-0.7) k/uL Basophils # 0.1 (0-0.2) k/uL PT (10.0-12.5) sec INR (<1.2) APTT (22.0-30.0) sec Sodium 138 (137-145) mmol/L Potassium 4.7 (3.5-5.1) mmol/L Chloride 105 (98-107) mmol/L Carbon Dioxide 19 L (22-30) mmol/L Anion Gap 14 mmol/L BUN 9 (7-17) mg/dL Creatinine 0.46 L (0.52-1.04) mg/dL Est GFR (CKD-EPI)AfAm >90 (>60 ml/min/1.73 sqM) Est GFR (CKD-EPI)NonAf >90 (>60 ml/min/1.73 sqM) Glucose 208 H (74-99) mg/dL Calcium 10.1 (8.4-10.2) mg/dL Total Bilirubin 1.3 (0.2-1.3) mg/dL AST 34 (14-36) U/L ALT 37 H (4-34) U/L Alkaline Phosphatase 124 (38-126) U/L Total Protein 8.5 H (6.3-8.2) g/dL Albumin 5.0 (3.5-5.0) g/dL Amylase 48 (30-110) U/L Lipase 18 L (23-300) U/L HCG, Qual Not Detected Urine Color Dark Yellow Urine Appearance Cloudy H (Clear) Urine pH 6.5 (5.0-8.0) Ur Specific [place] 1.033 (1.001-1.035) Urine Protein 3+ H (Negative) Urine Glucose (UA) 1+ H (Negative) Urine Ketones 1+ H (Negative) Urine Blood Moderate H (Negative) Urine Nitrite Negative (Negative) Urine Bilirubin 1+ H (Negative) Urine Urobilinogen 4.0 (<2.0) mg/dL Ur Leukocyte Esterase Trace H (Negative) Urine RBC 27 H (0-5) /hpf Urine WBC 14 H (0-5) /hpf Ur Squamous Epith Cells 16 H (0-4) /hpf Hyaline Casts 67 H (0-2) /lpf Urine Mucus Many H (None) /hpf 12/13/23 Range/Units 23:20 WBC (3.8-10.6) k/uL RBC (3.80-5.40) m/uL Hgb (11.4-16.0) gm/dL Hct (34.0-46.0) % MCV (80.0-100.0) fL MCH (25.0-35.0) pg MCHC (31.0-37.0) g/dL RDW (11.5-15.5) % Plt Count (150-450) k/uL MPV Neutrophils % % Lymphocytes % % Monocytes % % Eosinophils % % Basophils % % Neutrophils # (1.3-7.7) k/uL Lymphocytes # (1.0-4.8) k/uL Monocytes # (0-1.0) k/uL Eosinophils # (0-0.7) k/uL Basophils # (0-0.2) k/uL PT 10.4 (10.0-12.5) sec INR 0.9 (<1.2) APTT 24.1 (22.0-30.0) sec Sodium (137-145) mmol/L Potassium (3.5-5.1) mmol/L Chloride (98-107) mmol/L Carbon Dioxide (22-30) mmol/L Anion Gap mmol/L BUN (7-17) mg/dL Creatinine (0.52-1.04) mg/dL Est GFR (CKD-EPI)AfAm (>60 ml/min/1.73 sqM) Est GFR (CKD-EPI)NonAf (>60 ml/min/1.73 sqM) Glucose (74-99) mg/dL Calcium (8.4-10.2) mg/dL Total Bilirubin (0.2-1.3) mg/dL AST (14-36) U/L ALT (4-34) U/L Alkaline Phosphatase (38-126) U/L Total Protein (6.3-8.2) g/dL Albumin (3.5-5.0) g/dL Amylase (30-110) U/L Lipase (23-300) U/L HCG, Qual Urine Color Urine Appearance (Clear) Urine pH (5.0-8.0) Ur Specific [place] (1.001-1.035) Urine Protein (Negative) Urine Glucose (UA) (Negative) Urine Ketones (Negative) Urine Blood (Negative) Urine Nitrite (Negative) Urine Bilirubin (Negative) Urine Urobilinogen (<2.0) mg/dL Ur Leukocyte Esterase (Negative) Urine RBC (0-5) /hpf Urine WBC (0-5) /hpf Ur Squamous Epith Cells (0-4) /hpf Hyaline Casts (0-2) /lpf Urine Mucus (None) /hpf Disposition Clinical Impression: Leukocytosis, Gastroparesis, Dehydration, Intractable nausea and vomiting Disposition: ADMITTED IP TO THIS [facility] Condition: Stable Referrals: Reggie Denny MD [Primary Care Provider] - 1-2 days Time of Disposition: 00:56
[2023-12-13] MEDS: METOCLOPRAMIDE 5 MG/ML 2 ML VIAL IVP STA (23:13)
[2023-12-13 23:14] LABS: Basophils # (A) 0.1 k/uL (0-0.2); Basophils % (A) 1 %; Eosinophils # (A) 0.2 k/uL (0-0.7); Eosinophils % (A) 1 %; HCT 42.5 % (34.0-46.0); HGB 13.7 gm/dL (11.4-16.0); Lymphocytes # (A) 2.6 k/uL (1.0-4.8); Lymphocytes % (A) 11 %; MCH 27.8 pg (25.0-35.0); MCHC 32.4 g/dL (31.0-37.0); Mean Platelet Volume 7.5; Monocytes # (A) 0.8 k/uL (0-1.0); Monocytes % (A) 3 %; Neutrophils # (A) 19.2 k/uL (1.3-7.7); Neutrophils % (A) 84 %; Platelet Count 623 k/uL (150-450); RBC 4.94 m/uL (3.80-5.40); RDW 13.8 % (11.5-15.5)
[2023-12-13] MEDS: MORPHINE SULFATE 4 MG/ML SYRINGE IVP STA (23:15)
[2023-12-13] MEDS: PANTOPRAZOLE 40 MG/10 ML VIAL IVP STA (23:18)
[2023-12-13] MEDS: diphenhydrAMINE 50 MG/ML 1 ML VIAL IVP STA (23:20)
[2023-12-13] MEDS: SODIUM CHLORIDE 0.9% 2,000 ML IV STA (23:24)
[2023-12-13 23:26] LABS: ALT 37 U/L (4-34); AST 34 U/L (14-36); African American GFR (CKD) >90 (>60 ml/min/1.73 sqM); Alkaline Phosphatase 124 U/L (38-126); Amylase 48 U/L (30-110); Anion Gap 14 mmol/L; Blood Urea Nitrogen 9 mg/dL (7-17); Calcium 10.1 mg/dL (8.4-10.2); Carbon Dioxide 19 mmol/L (22-30); Chloride 105 mmol/L (98-107); Glucose 208 mg/dL (74-99); Lipase 18 U/L (23-300); Non-African American GFR(CKD) >90 (>60 ml/min/1.73 sqM); Sodium 138 mmol/L (137-145); Total Bilirubin 1.3 mg/dL (0.2-1.3); Total Protein 8.5 g/dL (6.3-8.2)
[2023-12-13 23:29] LABS: Potassium 4.7 mmol/L (3.5-5.1)
[2023-12-14] MEDS: methylPREDNISolone SOD SUCCI 125 MG/2 ML VIAL IV STA
[2023-12-14] MEDS: diphenhydrAMINE 50 MG/ML 1 ML VIAL IVP ONE
[2023-12-14] MEDS: FAMOTIDINE 20 MG/2 ML VIAL IV STA (00:01)
[2023-12-14 00:11] LABS: INR 0.9 (<1.2); Partial Thromboplastin Time 24.1 sec (22.0-30.0); Prothrombin Time 10.4 sec (10.0-12.5)
[2023-12-14 00:23] LABS: HCG,Qualitative Serum Not Detected
--- NOTE | 2023-12-14 00:54 | CT ---
EXAMINATION TYPE: CT abdomen pelvis w con DATE OF EXAM: 12/14/2023 HISTORY: pt c/o abd pain with nausea and vomiting x 1 day pt vomiting in waiting room- clear liquid CT DLP: 1521.3mGycm Automated Exposure Control for Dose Reduction was Utilized. CONTRAST: CT scan of the abdomen and pelvis is performed with IV Contrast, patient injected with 100 mL of Isov ue 300. COMPARISON: Most recent prior CT September 05, 2023 FINDINGS: LUNG BASES: No significant abnormality is appreciated. LIVER/GB: Liver is diffusely low dense consistent with fatty infiltrative hepatocellular disease. Gal lbladder is surgically absent. PANCREAS: Mild to moderate atrophy in the pancreatic head is redemonstrated. SPLEEN: No significant abnormality is seen. ADRENALS: No significant abnormality is seen. KIDNEYS: There is 8 mm nonobstructing calculus lower pole left kidney on image 38 redemonstrated. Sym metric cortical medullary uptake and excretion without hydronephrosis seen bilaterally. BOWEL: Slightly suboptimal evaluation due to lack of enteric contrast but no abnormal small or large bowel dilatation is seen. Air-fluid level in the rectum is present. UTERUS/ADNEXA: Anteverted uterus projects to left of midline similar to prior. Central metallic IUD r edemonstrated. LYMPH NODES: No greater than 1cm abdominal or pelvic lymph nodes are appreciated. OSSEOUS STRUCTURES: No significant abnormality is seen. OTHER: No significant additional abnormality is seen. IMPRESSION: 1. Air-fluid level in the rectum is abnormal finding could reflect product of diarrhea and/or mild un complicated colitis. No suspicious new or acute finding otherwise seen. No bowel obstruction is noted .
[2023-12-14] MEDS ORDERED: ACETAMINOPHEN TAB 325 MG TAB PO PRN (00:57)
[2023-12-14] MEDS ORDERED: NALOXONE 0.4 MG/ML 1 ML VIAL IV PRN (00:57)
[2023-12-14] MEDS ORDERED: ALBUTEROL NEBULIZED 2.5 MG/3 ML INHALATION PRN (00:59)
--- NOTE | 2023-12-14 00:59 | ED ---
Medical Decision Making - Medical Decision Making Discussed with the patient that she appears to have colitis and that the leukocytosis that she currently has is likely secondary to dehydration as well as a likely viral etiology for symptoms. Will continue to monitor. No antibiotics indicated at this time. - Lab Data Result diagrams: 12/13/23 22:50 12/13/23 22:50 Lab Results 12/13/23 12/13/23 12/13/23 Range/Units 22:01 22:50 22:50 WBC 23.0 H (3.8-10.6) k/uL RBC 4.94 (3.80-5.40) m/uL Hgb 13.7 (11.4-16.0) gm/dL Hct 42.5 (34.0-46.0) % MCV 86.0 (80.0-100.0) fL MCH 27.8 (25.0-35.0) pg MCHC 32.4 (31.0-37.0) g/dL RDW 13.8 (11.5-15.5) % Plt Count 623 H (150-450) k/uL MPV 7.5 Neutrophils % 84 % Lymphocytes % 11 % Monocytes % 3 % Eosinophils % 1 % Basophils % 1 % Neutrophils # 19.2 H (1.3-7.7) k/uL Lymphocytes # 2.6 (1.0-4.8) k/uL Monocytes # 0.8 (0-1.0) k/uL Eosinophils # 0.2 (0-0.7) k/uL Basophils # 0.1 (0-0.2) k/uL PT (10.0-12.5) sec INR (<1.2) APTT (22.0-30.0) sec Sodium 138 (137-145) mmol/L Potassium 4.7 (3.5-5.1) mmol/L Chloride 105 (98-107) mmol/L Carbon Dioxide 19 L (22-30) mmol/L Anion Gap 14 mmol/L BUN 9 (7-17) mg/dL Creatinine 0.46 L (0.52-1.04) mg/dL Est GFR (CKD-EPI)AfAm >90 (>60 ml/min/1.73 sqM) Est GFR (CKD-EPI)NonAf >90 (>60 ml/min/1.73 sqM) Glucose 208 H (74-99) mg/dL Calcium 10.1 (8.4-10.2) mg/dL Total Bilirubin 1.3 (0.2-1.3) mg/dL AST 34 (14-36) U/L ALT 37 H (4-34) U/L Alkaline Phosphatase 124 (38-126) U/L Total Protein 8.5 H (6.3-8.2) g/dL Albumin 5.0 (3.5-5.0) g/dL Amylase 48 (30-110) U/L Lipase 18 L (23-300) U/L HCG, Qual Not Detected Urine Color Dark Yellow Urine Appearance Cloudy H (Clear) Urine pH 6.5 (5.0-8.0) Ur Specific [place] 1.033 (1.001-1.035) Urine Protein 3+ H (Negative) Urine Glucose (UA) 1+ H (Negative) Urine Ketones 1+ H (Negative) Urine Blood Moderate H (Negative) Urine Nitrite Negative (Negative) Urine Bilirubin 1+ H (Negative) Urine Urobilinogen 4.0 (<2.0) mg/dL Ur Leukocyte Esterase Trace H (Negative) Urine RBC 27 H (0-5) /hpf Urine WBC 14 H (0-5) /hpf Ur Squamous Epith Cells 16 H (0-4) /hpf Hyaline Casts 67 H (0-2) /lpf Urine Mucus Many H (None) /hpf 12/13/23 Range/Units 23:20 WBC (3.8-10.6) k/uL RBC (3.80-5.40) m/uL Hgb (11.4-16.0) gm/dL Hct (34.0-46.0) % MCV (80.0-100.0) fL MCH (25.0-35.0) pg MCHC (31.0-37.0) g/dL RDW (11.5-15.5) % Plt Count (150-450) k/uL MPV Neutrophils % % Lymphocytes % % Monocytes % % Eosinophils % % Basophils % % Neutrophils # (1.3-7.7) k/uL Lymphocytes # (1.0-4.8) k/uL Monocytes # (0-1.0) k/uL Eosinophils # (0-0.7) k/uL Basophils # (0-0.2) k/uL PT 10.4 (10.0-12.5) sec INR 0.9 (<1.2) APTT 24.1 (22.0-30.0) sec Sodium (137-145) mmol/L Potassium (3.5-5.1) mmol/L Chloride (98-107) mmol/L Carbon Dioxide (22-30) mmol/L Anion Gap mmol/L BUN (7-17) mg/dL Creatinine (0.52-1.04) mg/dL Est GFR (CKD-EPI)AfAm (>60 ml/min/1.73 sqM) Est GFR (CKD-EPI)NonAf (>60 ml/min/1.73 sqM) Glucose (74-99) mg/dL Calcium (8.4-10.2) mg/dL Total Bilirubin (0.2-1.3) mg/dL AST (14-36) U/L ALT (4-34) U/L Alkaline Phosphatase (38-126) U/L Total Protein (6.3-8.2) g/dL Albumin (3.5-5.0) g/dL Amylase (30-110) U/L Lipase (23-300) U/L HCG, Qual Urine Color Urine Appearance (Clear) Urine pH (5.0-8.0) Ur Specific [place] (1.001-1.035) Urine Protein (Negative) Urine Glucose (UA) (Negative) Urine Ketones (Negative) Urine Blood (Negative) Urine Nitrite (Negative) Urine Bilirubin (Negative) Urine Urobilinogen (<2.0) mg/dL Ur Leukocyte Esterase (Negative) Urine RBC (0-5) /hpf Urine WBC (0-5) /hpf Ur Squamous Epith Cells (0-4) /hpf Hyaline Casts (0-2) /lpf Urine Mucus (None) /hpf Disposition Clinical Impression: Leukocytosis, Gastroparesis, Dehydration, Intractable nausea and vomiting, Colitis Disposition: ADMITTED IP TO THIS [facility] Condition: Stable Referrals: Reggie Denny MD [Primary Care Provider] - 1-2 days
[2023-12-14] MEDS: PROCHLORPERAZINE INJ 10 MG/2 ML VIAL IVP STA (01:39)
[2023-12-14] MEDS: SODIUM CHLORIDE 0.9% 1,000 ML IV SCH ×2 (01:40→01:41)
[2023-12-14] MEDS: traZODone HCL 100 MG TAB PO STA (03:13)
[2023-12-14] MEDS: MORPHINE SULFATE 4 MG/ML SYRINGE IV PRN (04:56)
[2023-12-14] MEDS: ONDANSETRON 4 MG/2 ML VIAL IVP PRN (07:25)
[2023-12-14] MEDS: IPRATROPIUM 0.5 MG/2.5 ML NEBU INHALATION SCH (07:46)
[2023-12-14] MEDS: SYMBICORT 160-4.5 MCG INHALER INHALATION SCH (07:46)
[2023-12-14] MEDS: PANTOPRAZOLE 40 MG/10 ML VIAL IV SCH (08:47)
--- NOTE | 2023-12-14 09:18 | P.CONS ---
History of Present Illness - Reason for Consult Consult date: 12/14/23 Nausea and vomiting, patient scheduled for outpatient EGD and colonoscopy Requesting physician: Reggie Denny - Chief Complaint Intractable nausea and vomiting - History of Present Illness This is a pleasant 38-year-old female with a history of diabetes, gastroparesis, asthma, GERD, hyperlipidemia, IBS, migraines and obesity who presented to the emergency department with complaints of intractable nausea and vomiting. Patient was undergoing her bowel prep yesterday for her scheduled EGD and colonoscopy today with Dr. Baker. She states following the prep she started having intractable nausea and vomiting. She does state that she did finish her bowel prep. Denies any hematemesis, no coffee-ground emesis. Does have some abdominal pain associated with the nausea and vomiting. Gastroenterology was notified that patient was admitted to the hospital however she was scheduled for outpatient EGD and colonoscopy. Patient continues to have nausea and vomiting, she was given clear liquids yesterday and this morning. She did drink a glass of water however she has vomited that back up. Patient was noted to have leukocytosis on admission likely secondary from dehydration. She had a CT of the abdomen and pelvis reporting air-fluid level and rectum could reflect diarrhea or mild uncomplicated colitis. Her last upper endoscopy was 10/05/[address] Zhou which reported small hiatal hernia, mild antral inflammation and distal esophagus appeared inflamed. Last colonoscopy was December [address] Baker with findings of normal-appearing colon and normal-appearing terminal ileum. Biopsy results with findings of normal terminal ileum. Ascending and descending colon with microscopic colitis consistent with lymphocytic colitis. Review of Systems REVIEW OF SYSTEMS: CARDIOPULMONARY: No chest pain or shortness of breath. Gastrointestinal: Abdominal pain. Nausea and vomiting. No hematemesis, coffee- ground emesis. No rectal bleeding, or melena. GENITOURINARY: No dysuria or hematuria. MUSCULOSKELETAL: Reports normal range of motion., Joint pain. SKIN: No rashes. No jaundice. ENDOCRINE: No chills, fevers. No excessive weight gain or loss. No polydipsia or polyuria. PSYCHIATRIC: Unremarkable. NEUROLOGY: No change in mental status. Denies dizziness, headache. ENT: Vision unremarkable. CONSTITUTIONAL: No recent weight loss. No fever, chills, night sweats. 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 History of Any Multi-Drug Resistant Organisms: None Reported, MRSA Year Discovered:: 2020 MDRO Source:: labia Past Surgical History: Cholecystectomy, Orthopedic Surgery Additional Past Surgical History / Comment(s): ORIF RIGHT HAND, MIRENA INSERTION, pain procedures.COLONOSCOPY/EGD Past Anesthesia/Blood Transfusion Reactions: No Reported Reaction Past Psychological History: Anxiety, Depression, Schizoaffective Disorder Smoking Status: Current every day smoker Past Alcohol Use History: None Reported Past Drug Use History: Marijuana - Past Family History Mother Family Medical History: Unable to Obtain Additional Family Medical History / Comment(s): Patient states does not any history of her family. Medications and Allergies Home Medications Medication Instructions Recorded Confirmed Type Gabapentin 800 mg PO TID 10/02/22 12/14/23 History oxyCODONE-APAP 10-325MG [Percocet 1 tab PO TID 10/02/22 12/14/23 History 10-325 mg] Atorvastatin [Lipitor] 20 mg PO HS 14 Days #14 tab 02/09/23 12/14/23 Rx traZODone HCL 300 mg PO HS 14 Days #14 tab 02/09/23 12/14/23 Rx Albuterol Sulfate [Albuterol 1 - 2 puff INHALATION RT-Q6H PRN 09/30/23 12/14/23 History Sulfate Hfa] Cetirizine HCl 10 mg PO HS 09/30/23 12/14/23 History DULoxetine HCL [Cymbalta] 30 mg PO HS 09/30/23 12/14/23 History Diphenox-Atrop 2.5-0.025 mg 1 tab PO HS 09/30/23 12/14/23 History [Lomotil] Fluticasone/Umeclidin/Vilanter 1 puff INHALATION RT-DAILY 09/30/23 12/14/23 History [Trelegy Ellipta 200-62.5-25] Glimepiride 2 mg PO HS 09/30/23 12/14/23 History Lumateperone Tosylate [Caplyta] 10.5 mg PO HS 09/30/23 12/14/23 History Metoclopramide HCl [Reglan] 10 mg PO HS 09/30/23 12/14/23 History Omeprazole 40 mg PO HS 09/30/23 12/14/23 History haloperidoL 10 mg PO HS 09/30/23 12/14/23 History metFORMIN HCL [Glucophage] 500 mg PO HS 09/30/23 12/14/23 History EPINEPHrine (Auto Inject) [Epipen] 0.3 mg IM ONCE PRN 11/05/23 12/14/23 History Ibuprofen [Motrin] 800 mg PO TID 11/05/23 12/14/23 History Ondansetron Odt [Zofran ODT] 8 mg PO BID PRN 11/05/23 12/14/23 History Ubrogepant [Ubrelvy] 50 mg PO DAILY PRN 11/05/23 12/14/23 History Allergies Allergy/AdvReac Type Severity Reaction Status Date / Time Iodinated Contrast Media Allergy Anaphylaxis Verified 12/14/23 07:24 [Iodinated Contrast Media - Oral and] latex Allergy Rash/Hives Verified 12/14/23 07:24 shellfish derived [Shellfish] Allergy Anaphylaxis Verified 12/14/23 07:24 dulaglutide [From Trulicity] AdvReac Nausea & Verified 12/14/23 07:24 Vomiting mirtazapine [From Remeron] AdvReac Hallucinati Verified 12/14/23 07:24 ons semaglutide [From Ozempic] AdvReac Nausea & Verified 12/14/23 07:24 Vomiting Physical Exam Vitals: Vital Signs Temp Pulse Resp BP Pulse Ox 12/14/23 07:30 60 20 140/83 98 12/14/23 05:00 74 20 129/71 96 12/14/23 00:08 80 20 123/72 100 12/13/23 21:24 98.1 F 87 18 127/90 98 Intake and Output 12/13/23 12/14/23 12/14/23 22:59 06:59 14:59 Other: Weight 104.326 kg General appearance: The patient is alert, oriented, appears in no acute distress. HET: Head is normocephalic and atraumatic. Conjunctiva pink. Sclera anicteric. Neck: Supple without lymphadenopathy. Trachea midline. Heart: Regular. Lungs: Equal expansion, normal respiratory effort. Abdomen: Soft, nontender, nondistended. Skin: No rashes. No jaundice. Extremities: Normal skin color and turgor. No pedal edema. Neurological: No focal deficits. Alert and oriented x3. Results CBC & Chem 7: 12/13/23 22:50 12/13/23 22:50 Labs: Abnormal Lab Results - Last 24 Hours (Table) 12/13/23 12/13/23 12/13/23 Range/Units 22:01 22:50 22:50 WBC 23.0 H (3.8-10.6) k/uL Plt Count 623 H (150-450) k/uL Neutrophils # 19.2 H (1.3-7.7) k/uL Carbon Dioxide 19 L (22-30) mmol/L Creatinine 0.46 L (0.52-1.04) mg/dL Glucose 208 H (74-99) mg/dL ALT 37 H (4-34) U/L Total Protein 8.5 H (6.3-8.2) g/dL Lipase 18 L (23-300) U/L Urine Appearance Cloudy H (Clear) Urine Protein 3+ H (Negative) Urine Glucose (UA) 1+ H (Negative) Urine Ketones 1+ H (Negative) Urine Blood Moderate H (Negative) Urine Bilirubin 1+ H (Negative) Ur Leukocyte Esterase Trace H (Negative) Urine RBC 27 H (0-5) /hpf Urine WBC 14 H (0-5) /hpf Ur Squamous Epith Cells 16 H (0-4) /hpf Hyaline Casts 67 H (0-2) /lpf Urine Mucus Many H (None) /hpf Comments: CT abdomen pelvis with contrast reported air-fluid level and rectum is abnormal findings could reflect product of diarrhea and or mild uncomplicated colitis. No suspicious new or acute finding otherwise seen. No bowel obstruction is noted. Assessment and Plan (1) Intractable nausea and vomiting Narrative/Plan: 38-year-old female with diabetic gastroparesis presented to the emergency department with intractable nausea and vomiting after completing her bowel prep for her scheduled outpatient EGD and colonoscopy. Patient was admitted from her primary care provider Dr. Denny. She was given clear liquid diets and still having nausea and vomiting. Nonbloody. Likely secondary to gastroparesis, IBS. Patient also has history of cannabinoid abuse therefore could be cyclic vomiting from cannabinoid use. Patient states she did complete her bowel prep and would like to proceed with upper and lower endoscopy. Current Visit: Yes Status: Acute Code(s): R11.2 - NAUSEA WITH VOMITING, UNSPECIFIED SNOMED Code(s): 267134482 (2) Dehydration Current Visit: Yes Status: Acute Code(s): E86.0 - DEHYDRATION SNOMED Code(s): 08205768 (3) Gastroparesis Current Visit: Yes Status: Acute Code(s): K31.84 - GASTROPARESIS SNOMED Code(s): 592346100 (4) Leukocytosis Narrative/Plan: Likely secondary to dehydration. Current Visit: Yes Status: Acute Code(s): D72.829 - ELEVATED WHITE BLOOD CELL COUNT, UNSPECIFIED SNOMED Code(s): 288365732 (5) Abdominal pain Narrative/Plan: Patient has chronic abdominal pain, likely secondary to IBS and diabetic gastroparesis. No acute findings on CT abdomen and pelvis. Current Visit: Yes Status: Acute Code(s): R10.9 - UNSPECIFIED ABDOMINAL PAIN SNOMED Code(s): 94026828 Plan: 1. Continue symptomatic supportive care 2. Continue antiemetics as ordered 3. Continue Protonix 40 mg daily 4. Keep n.p.o. 5. Patient is scheduled for EGD and colonoscopy this afternoon 6. Further recommendations can be found on procedure report as there will be no further gastroenterology coverage. Thank you for this consultation, we will sign off at this time. Dr. Adria Baker I agree with the dictator's note, documented as a scribe by Tiff Small.
[2023-12-14] MEDS ORDERED: LIDOCAINE 2% (PF) 20 MG/ML 5 ML VIAL ONE (12:01)
[2023-12-14] MEDS ORDERED: ONDANSETRON 4 MG/2 ML VIAL ONE (12:01)
[2023-12-14] MEDS ORDERED: PROPOFOL 10 MG/ML 20 ML VIAL IV ONE (12:01)
[2023-12-14] MEDS: IV FLUID CONTINUATION 1,000 ML IV ONE (12:05)
[2023-12-14] MEDS: LACTATED RINGERS 1,000 ML IV ONE (12:24)
--- NOTE | 2023-12-14 12:24 | P.PCN ---
Date of Procedure: 12/14/23 Procedure(s) Performed: Brief history: Patient is a pleasant 38-year-old white female scheduled for an elective upper endoscopy as well as colonoscopy as a part of evaluation of intermittent episodes of nausea vomiting and chronic diarrhea for the last 2 years duration. She has these episodes almost on a daily basis. Has 4-6 loose watery bowel movements daily. After she completed her prep for colonoscopy yesterday she developed intense nausea vomiting and has came to emergency room and subsequently admitted to the hospital for further management. Procedure performed: Esophagogastroduodenoscopy biopsy Colonoscopy with biopsy Preoperative diagnosis: Chronic intermittent nausea vomiting of 2 years duration Chronic diarrhea Anesthesia: [facility] [place] Procedure: After informed consent was obtained from the patient was brought into the endoscopy unit and IV sedation was administered by anesthesia under continuous monitoring. Initially upper endoscopy was done. The Olympus GF 160 video endoscope was inserted inserted into the mouth and esophagus intubated without any difficulty and was gradually advanced into the stomach and duodenum and carefully examined. The bulb and second part of the duodenum appeared normal. Biopsies were done from the duodenum rule out celiac disease. The scope was th en withdrawn into the stomach adequately insufflated with air and upon careful examination the antrum had mild gastritis and biopsies were done from this area. Mucosa of the body, cardia and fundus appeared normal. The scope was then withdrawn into the esophagus. Small hiatal hernia noted. The GE junction was located at 40 cm to the incisors. It appeared regular with no erythema erosions or ulcerations. Rest of the esophagus appeared normal. Patient tolerated the procedure well. At this time the patient continued to remain sedation. Initial digital rectal examination was normal. Olympus CF 160 video colonoscope was then inserted into the rectum and gradually advanced to the cecum without any difficulty. Careful examination was performed as the scope was gradually being withdrawn. The prep was excellent. The cecum, ascending colon, transverse colon, descending colon, sigmoid colon and rectum appeared normal. Random biopsies were done from the ascending and descending colon to look microscopic/collagenous colitis. Retroflexion was performed in the rectum and no lesions were noted. Patient tolerated the procedure well. Impression: 1. Upper endoscopy revealed mild antral gastritis and small hiatal hernia 2. Colonoscopy was within normal limits with no evidence of colitis or colorectal neoplasia Recommendations: Findings of this examination were discussed with the patient as well as her family. She was advised to follow-up the biopsy results. Continue with Protonix 40 mg twice daily as well as antiemetics as needed.. Start on clear liquid liquid diet and advance as tolerated based on symptoms.. Follow-up in the office 2 to 3 weeks following discharge from the hospital
[2023-12-14] MEDS: droPERidol 5 MG/2 ML VIAL IVP ONE (12:55)
[2023-12-14] MEDS: ACETAMINOPHEN IV (For NPO) 1,000 MG in EMPTY BAG 1 BAG IVPB ONE (13:24)
--- NOTE | 2023-12-14 15:15 | HP ---
HISTORY AND PHYSICAL CHIEF COMPLAINT: Intractable nausea, vomiting, and diarrhea with elevated white count. HISTORY OF PRESENT ILLNESS: This is another admission for this 38-year-old white female who was actually being prepped for endoscopy today. She then developed profuse diarrhea with nausea and vomiting. She also developed stomach cramps and also found to have urinary tract infection. Her white count was elevated when she came to the emergency room and was felt safest to admit her. She has had no melena, hematochezia, fever and chills, hematemesis, etc. PAST MEDICAL HISTORY, FAMILY HISTORY PERSONAL AND SOCIAL HISTORY: Otherwise unremarkable. She does have a history of type 2 diabetes and a history of gastroparesis. She has also been told in the past that she has "colitis." REVIEW OF SYSTEMS: She denies any headaches, change in vision or hearing, cough, shortness of breath, chest pain, abdominal pain, palpitations, jaundice, etc. Past medical history, family history, personal and social histories reveal that she is allergic to Rybelsus, Trulicity, Ozempic, and Remeron. She is currently on Caplyta, glimepiride, Haldol, metformin, Ubrelvy, Reglan, Zyrtec, hydroxyzine, atorvastatin, Duloxetine, gabapentin, and oxycodone. Remainder of her history is unremarkable. She does smoke, but she does not drink alcohol. PHYSICAL EXAMINATION: VITAL SIGNS: Blood pressure is 112/74 with a pulse of 100, respirations of 36, and she is afebrile. GENERAL: She appeared to be overweight and uncomfortable. She was vomiting. HEENT: Head, ears, eyes, nose, mouth and throat were normal. NECK: Supple. CHEST: Clear. CARDIAC: Normal. ABDOMEN: Slightly protuberant, soft, and nontender. Bowel sounds were present. EXTREMITIES: Normal. She had multiple tattoos. DIAGNOSES: She is admitted to the hospital with diagnoses, 1. Intractable nausea, vomiting and diarrhea. 2. Dehydration. 3. Leukocytosis. 4. Urinary tract infection. 5. Type 2 diabetes mellitus. 6. History of gastroparesis. PLAN: 1. Bedrest. 2. IV fluids. 3. N.p.o. 4. Proceed with upper and lower GI endoscopies along with anti-emetics and antidiarrheals. MMODL / IJN: [id number] /
[2023-12-14] MEDS: METOCLOPRAMIDE 5 MG/ML 2 ML VIAL IVP PRN (18:09)
[2023-12-14] MEDS: LUMATEPERONE TOSYLATE PO SCH (20:15)
[2023-12-14] MEDS: GABAPENTIN 400 MG CAP PO SCH (23:17)
[2023-12-14] MEDS: DULoxetine HCL 30 MG CAPSULE.DR PO SCH (23:17)
[2023-12-14] MEDS: oxyCODONE-APAP 10-325MG 1 EACH TAB PO SCH (23:17)
[2023-12-14] MEDS: DIPHENOX-ATROP 2.5-0.025 MG 1 EACH TAB PO SCH (23:18)
[2023-12-14] MEDS: traZODone HCL 100 MG TAB PO SCH (23:18)
[2023-12-14] MEDS: haloperidoL 5 MG TAB PO SCH (23:21)
[2023-12-15 08:52] LABS: Basophils # (A) 0.04 X 10*3/uL (0.00-0.10); Basophils % (A) 0.2 %; Eosinophils # (A) 0 X 10*3/uL (0.04-0.35); Eosinophils % (A) 0 %; HCT 35.6 % (37.2-46.3); HGB 11.4 g/dL (12.0-15.0); Lymphocytes # (A) 4.83 X 10*3/uL (0.90-5.00); Lymphocytes % (A) 26.6 %; MCH 27.9 pg (27.0-32.0); Mean Platelet Volume 9.8 FL (9.5-12.2); Monocytes # (A) 1.26 X 10*3/uL (0.20-1.00); Monocytes % (A) 6.9 %; NRBC Per 100 WBC 0 X 10*3/uL (0.00-0.01); Neutrophils # (A) 11.87 X 10*3/uL (1.80-7.70); Neutrophils % (A) 65.4 %; Platelet Count 443 X 10*3/uL (140-440); RBC 4.09 X 10*6/uL (4.10-5.20); RDW 13.8 % (11.5-14.5); WBC 18.17 X 10*3/uL (4.50-10.00)
[2023-12-15 09:23] LABS: ALT 23 U/L (8-44); AST 13 U/L (13-35); Alkaline Phosphatase 89 U/L (41-126); Blood Urea Nitrogen 6.8 mg/dL (9.0-27.0); Calcium 9.5 mg/dL (8.7-10.3); Carbon Dioxide 23.7 mmol/L (21.6-31.8); Chloride 106 mmol/L (96-109); Globulin 2.5 g/dL (1.6-3.3); Glucose 134 mg/dL (70-110); Potassium 3.5 mmol/L (3.5-5.5); Sodium 145 mmol/L (135-145); Total Bilirubin 0.2 mg/dL (0.3-1.2); Total Protein 6.5 g/dL (6.2-8.2)
[2023-12-15 16:22] LABS: Basophils % (A) 0 %; Eosinophils # (A) 0.1 k/uL (0-0.7); Eosinophils % (A) 0 %; HCT 34.8 % (34.0-46.0); HGB 11.1 gm/dL (11.4-16.0); Lymphocytes # (A) 3.1 k/uL (1.0-4.8); Lymphocytes % (A) 23 %; MCH 27.3 pg (25.0-35.0); MCV 85.4 fL (80.0-100.0); Mean Platelet Volume 7.1; Monocytes # (A) 0.7 k/uL (0-1.0); Monocytes % (A) 5 %; Neutrophils # (A) 9.5 k/uL (1.3-7.7); Neutrophils % (A) 70 %; Platelet Count 392 k/uL (150-450); RBC 4.07 m/uL (3.80-5.40); RDW 14.3 % (11.5-15.5); WBC 13.6 k/uL (3.8-10.6)
[2023-12-15 16:38] LABS: ALT 22 U/L (4-34); AST 21 U/L (14-36); African American GFR (CKD) >90 (>60 ml/min/1.73 sqM); Albumin 3.7 g/dL (3.5-5.0); Albumin/Globulin Ratio 1.5; Alkaline Phosphatase 87 U/L (38-126); Anion Gap 5 mmol/L; Blood Urea Nitrogen 7 mg/dL (7-17); Carbon Dioxide 27 mmol/L (22-30); Chloride 105 mmol/L (98-107); Globulin 2.5 g/dL; Glucose 156 mg/dL (74-99); Non-African American GFR(CKD) >90 (>60 ml/min/1.73 sqM); Potassium 3.3 mmol/L (3.5-5.1); Sodium 137 mmol/L (137-145); Total Bilirubin 0.4 mg/dL (0.2-1.3); Total Protein 6.2 g/dL (6.3-8.2)
--- NOTE | 2023-12-16 01:04 | PN ---
PROGRESS NOTE DATE OF SERVICE: 12/15/2023 CHIEF COMPLAINT: Intractable nausea and vomiting, leukocytosis. HISTORY OF PRESENT ILLNESS: This lady is still having vomiting. She has not had any fever, chills, abdominal pain, hematemesis, diarrhea, etc. White count is down slightly. She denies shortness of breath, headache, urinary complaints, etc. PHYSICAL EXAMINATION: VITAL SIGNS: Normal. CHEST: Clear. CARDIAC: Normal. ABDOMEN: Soft and protuberant. Bowel sounds are present. IMPRESSION: 1. Intractable nausea and vomiting, etiology unknown. 2. ? viral gastroenteritis. 3. ? gastroparesis. PLAN: 1. Continue with IV fluids. 2. Laboratory studies. MMODL / IJN: [id number] /
[2023-12-16 07:38] VITALS: BP 99/63; RESP 16; TEMP 98.4
[2023-12-16 08:49] VITALS: PULSE 75
--- NOTE | 2023-12-17 21:39 | DS ---
DISCHARGE SUMMARY CHIEF COMPLAINT: Intractable nausea and vomiting. HISTORY OF PRESENT ILLNESS AND PHYSICAL EXAM: Details of this lady's history and physical can be found in the initial workup. LABORATORY STUDIES: While she was in the hospital, she had laboratory studies, details of which can be found in the laboratory section of her chart. COURSE IN THE HOSPITAL: After admission, she was placed on bedrest, started on intravenous fluids and antiemetics. She continued to have nausea and vomiting over the next 24 hours, but then began to subside and eventually stopped. Diet was advanced. She was doing well and she was anxious to be discharged and signed out AMA. FINAL DIAGNOSES: 1. Intractable nausea and vomiting. 2. Probable viral gastroenteritis. 3. History of gastroparesis. OPERATIONS: None. CONSULTATIONS: None. She is improved. LISA / KRISTAL: [id number] /
== END 2023-12-16 14:28 | disposition left against medical advice (07) ==
LOC: EC 20:43 → 6NMEDSUR 12-14 00:58
PROVIDERS: ADMIT Family Medicine; ATTEND Family Medicine
DX: K29.70 Gastritis, unspecified, without bleeding (principal); K44.9 Diaphragmatic hernia without obstruction or gangrene; K31.89 Other diseases of stomach and duodenum; E11.43 Type 2 diabetes mellitus with diabetic autonomic (poly)neuropathy; K31.84 Gastroparesis; E86.0 Dehydration; N39.0 Urinary tract infection, site not specified; K21.9 Gastro-esophageal reflux disease without esophagitis; J45.909 Unspecified asthma, uncomplicated; E78.5 Hyperlipidemia, unspecified; F25.9 Schizoaffective disorder, unspecified; F41.9 Anxiety disorder, unspecified; F17.200 Nicotine dependence, unspecified, uncomplicated; E66.9 Obesity, unspecified; Z68.38 Body mass index [BMI] 38.0-38.9, adult; Z90.49 Acquired absence of other specified parts of digestive tract; Z79.84 Long term (current) use of oral hypoglycemic drugs; Z79.899 Other long term (current) drug therapy; Z91.040 Latex allergy status; Z53.29 Procedure and treatment not carried out because of patient's decision for other reasons
CPT/HCPCS: 96376 ×4; 96361 ×4; 96374; 96375 ×2; 99285; 36415; 94640; 88305; 80053 ×2; 82150; 83690; 85025 ×2; 85610; 85730; 81001; 84703; 74177; 45380; 43239; G0378 ×4; J2270 ×2; J1200 ×2; J0780; J2765 ×4; J2405 ×2; J3490; J0131; J2704; C9113 ×4; J2001; J1790; J2919

== ENCOUNTER 2024-01-03 13:00 | Emergency (ER) | payer MEDICARE, OTHER ==
--- NOTE | 2024-01-03 13:27 | ED ---
General Adult HPI - General Chief complaint: Abdominal Pain Stated complaint: Vomiting Time Seen by Provider: 01/03/24 13:20 Source: patient, RN notes reviewed, old records reviewed Mode of arrival: ambulatory Limitations: no limitations - History of Present Illness Initial comments: This is a 38-year-old female who presents to the emergency department complaining that she has been vomiting for the last 2 days. Patient states she has a history of gastroparesis. Patient states she does continue smoking marijuana and she has been told in the past she needs to quit. Patient states she has abdominal pain that is diffuse from all the vomiting she is doing there is no specific area of tenderness. Patient denies any fever or chills. Patient has not dysuria hematuria urinary frequency. Patient has any diarrhea. Patient Nuys any chest pain or difficulty breathing. Patient states this is the same symptoms she has every time she has the gastroparesis - Related Data Home Medications Medication Instructions Recorded Confirmed Gabapentin 800 mg PO TID 10/02/22 12/14/23 oxyCODONE-APAP 10-325MG [Percocet 1 tab PO TID 10/02/22 12/14/23 10-325 mg] Albuterol Sulfate [Albuterol 1 - 2 puff INHALATION RT-Q6H PRN 09/30/23 12/14/23 Sulfate Hfa] Cetirizine HCl 10 mg PO HS 09/30/23 12/14/23 DULoxetine HCL [Cymbalta] 30 mg PO HS 09/30/23 12/14/23 Diphenox-Atrop 2.5-0.025 mg 1 tab PO HS 09/30/23 12/14/23 [Lomotil] Fluticasone/Umeclidin/Vilanter 1 puff INHALATION RT-DAILY 09/30/23 12/14/23 [Trelegy Ellipta 200-62.5-25] Glimepiride 2 mg PO HS 09/30/23 12/14/23 Lumateperone Tosylate [Caplyta] 10.5 mg PO HS 09/30/23 12/14/23 Metoclopramide HCl [Reglan] 10 mg PO HS 09/30/23 12/14/23 Omeprazole 40 mg PO HS 09/30/23 12/14/23 haloperidoL 10 mg PO HS 09/30/23 12/14/23 metFORMIN HCL [Glucophage] 500 mg PO HS 09/30/23 12/14/23 EPINEPHrine (Auto Inject) [Epipen] 0.3 mg IM ONCE PRN 11/05/23 12/14/23 Ibuprofen [Motrin] 800 mg PO TID 11/05/23 12/14/23 Ondansetron Odt [Zofran ODT] 8 mg PO BID PRN 11/05/23 12/14/23 Ubrogepant [Ubrelvy] 50 mg PO DAILY PRN 11/05/23 12/14/23 Previous Rx's Medication Instructions Recorded Atorvastatin [Lipitor] 20 mg PO HS 14 Days #14 tab 02/09/23 traZODone HCL 300 mg PO HS 14 Days #14 tab 02/09/23 Allergies Allergy/AdvReac Type Severity Reaction Status Date / Time Iodinated Contrast Media Allergy Anaphylaxis Verified 01/03/24 13:17 [Iodinated Contrast Media - Oral and] latex Allergy Rash/Hives Verified 01/03/24 13:17 shellfish derived [Shellfish] Allergy Anaphylaxis Verified 01/03/24 13:17 dulaglutide [From Trulicity] AdvReac Nausea & Verified 01/03/24 13:17 Vomiting mirtazapine [From Remeron] AdvReac Hallucinati Verified 01/03/24 13:17 ons semaglutide [From Ozempic] AdvReac Nausea & Verified 01/03/24 13:17 Vomiting Review of Systems ROS Statement: Those systems with pertinent positive or pertinent negative responses have been documented in the HPI. ROS Other: All systems not noted in ROS Statement are negative. 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 History of Any Multi-Drug Resistant Organisms: None Reported, MRSA Date of last positivie culture/infection: 2020 MDRO Source:: labia Past Surgical History: Cholecystectomy, Orthopedic Surgery Additional Past Surgical History / Comment(s): ORIF RIGHT HAND, MIRENA INSERTION, pain procedures.COLONOSCOPY/EGD Past Anesthesia/Blood Transfusion Reactions: No Reported Reaction Past Psychological History: Anxiety, Depression, Schizoaffective Disorder Smoking Status: Current every day smoker Past Alcohol Use History: None Reported Past Drug Use History: Marijuana - Past Family History Mother Family Medical History: Unable to Obtain Additional Family Medical History / Comment(s): Patient states does not any history of her family. General Exam - General Exam Comments Initial Comments: GENERAL: Patient is well-developed and well-nourished. Patient is nontoxic and well- hydrated and is in mild distress. ENT: Neck is soft and supple. No significant lymphadenopathy is noted. Oropharynx is clear. Moist mucous membranes. Neck has full range of motion without eliciting any pain. EYES: The sclera were anicteric and conjunctiva were pink and moist. Extraocular movements were intact and pupils were equal round and reactive to light. Eyelids were unremarkable. PULMONARY: Unlabored respirations. Good breath sounds bilaterally. No audible rales rhonchi or wheezing was noted. CARDIOVASCULAR: There is a regular rate and rhythm without any murmurs gallops or rubs. ABDOMEN: Soft and nontender with normal bowel sounds. SKIN: Skin is clear with no lesions or rashes and otherwise unremarkable. NEUROLOGIC: Patient is alert and oriented x3. Cranial nerves II through XII are grossly intact. Motor and sensory are also intact. Normal speech, volume and content. Symmetrical smile. MUSCULOSKELETAL: Normal extremities with adequate strength and full range of motion. No lower extremity swelling or edema. No calf tenderness. LYMPHATICS: No significant lymphadenopathy is noted PSYCHIATRIC: Normal psychiatric evaluation. Limitations: no limitations Course Vital Signs 01/03/24 01/03/24 13:15 15:28 Temperature 98.1 F 98.7 F Pulse Rate 104 H 69 Respiratory 22 16 Rate Blood Pressure 139/75 124/72 O2 Sat by Pulse 95 99 Oximetry Medical Decision Making - Medical Decision Making EKG is interpreted by myself EKG shows a sinus rhythm at 87 bpm SC interval 129 QRS is 91 QT interval 316 QTc is 360. Patient's EKG shows no ST segment ovation or depression. Was pt. sent in by a medical professional or institution (, PA, SHANK BURNISHER, urgent care, hospital, or longterm...) When possible be specific @ -No Did you speak to anyone other than the patient for history (EMS, parent, family, police, friend...)? What history was obtained from this source @ -No Did you review nursing and triage notes (agree or disagree)? Why? @ -I reviewed and agree with nursing and triage notes Were old charts reviewed (outside hosp., previous admission, EMS record, old EKG, old radiological studies, urgent care reports/EKG's, longterm records)? Report findings @ -Reviewed prior lab work done on this patient compared to today's lab work patient's white count is elevated today as it has been with most of her previous visit Differential Diagnosis (chest pain, altered mental status, abdominal pain women, abdominal pain men, vaginal bleeding, weakness, fever, dyspnea, syncope, headache, dizziness, GI bleed, back pain, seizure, CVA, palpatations, mental health, musculoskeletal)? @ -Acute vomiting, viral syndrome, gastroparesis, gastroenteritis, marijuana abuse this is not all inclusive list EKG interpreted by me (3pts min.). @ -As above X-rays interpreted by me (1pt min.). @ -None done CT interpreted by me (1pt min.). @ -None done U/S interpreted by me (1pt. min.). @ -None done What testing was considered but not performed or refused? (CT, X-rays, U/S, labs)? Why? @ -None What meds were considered but not given or refused? Why? @ -None Did you discuss the management of the patient with other professionals (ragini anderson i.e. , PA, SHANK BURNISHER, lab, RT, psych nurse, secondary social studies teacher, night patrol inspector, teacher, agricultural extension officer, telephonic case manager)? Give summary @ -No Was smoking cessation discussed for >3mins.? @ -No Was critical care preformed (if so, how long)? @ -No Were there social determinants of health that impacted care today? How? (Homelessness, low income, unemployed, alcoholism, drug addiction, transportation, low edu. Level, literacy, decrease access to med. care, intermediate, rehab)? @ -No Was there de-escalation of care discussed even if they declined (Discuss DNR or withdrawal of care, Hospice)? DNR status @ -No What co-morbidities impacted this encounter? (DM, HTN, Smoking, COPD, CAD, Cancer, CVA, ARF, Chemo, Hep., AIDS, mental health diagnosis, sleep apnea, morbid obesity)? @ -None Was patient admitted / discharged? Hospital course, mention meds given and route, prescriptions, significant lab abnormalities, going to OR and other pertinent info. @ -Patient was given droperidol and she continued to have some vomiting so I gave her some Reglan and half an Ativan I went back into the room an hour later and she was sleeping and no longer vomiting she felt comfortable to go home. States she has Reglan at home patient denies any abdominal pain at this time Undiagnosed new problem with uncertain prognosis? @ -No Drug Therapy requiring intensive monitoring for toxicity (Heparin, Nitro, Insulin, Cardizem)? @ -No Were any procedures done? @ -No Diagnosis/symptom? @ -Cyclic vomiting Acute, or Chronic, or Acute on Chronic? @ -Acute Uncomplicated (without systemic symptoms) or Complicated (systemic symptoms)? @ -Complicated Side effects of treatment? @ -No Exacerbation, Progression, or Severe Exacerbation? @ -No Poses a threat to life or bodily function? How? (Chest pain, [place], [place], pneumonia, PE, COPD, DKA, ARF, appy, cholecystitis, CVA, Diverticulitis, Homicidal, Suicidal, threat to staff... and all critical care pts) @ -No - Lab Data Result diagrams: 01/03/24 13:40 01/03/24 13:40 Lab Results 01/03/24 01/03/24 Range/Units 13:40 13:40 WBC 24.3 H (3.8-10.6) k/uL RBC 5.43 H (3.80-5.40) m/uL Hgb 15.0 D (11.4-16.0) gm/dL Hct 47.5 H (34.0-46.0) % MCV 87.5 (80.0-100.0) fL MCH 27.6 (25.0-35.0) pg MCHC 31.5 (31.0-37.0) g/dL RDW 14.2 (11.5-15.5) % Plt Count 720 H (150-450) k/uL MPV 7.5 Neutrophils % 86 % Lymphocytes % 10 % Monocytes % 2 % Eosinophils % 1 % Basophils % 0 % Neutrophils # 20.9 H (1.3-7.7) k/uL Lymphocytes # 2.3 (1.0-4.8) k/uL Monocytes # 0.5 (0-1.0) k/uL Eosinophils # 0.3 (0-0.7) k/uL Basophils # 0.1 (0-0.2) k/uL Sodium 137 (137-145) mmol/L Potassium 4.9 (3.5-5.1) mmol/L Chloride 100 (98-107) mmol/L Carbon Dioxide 22 (22-30) mmol/L Anion Gap 15 mmol/L BUN 11 (7-17) mg/dL Creatinine 0.51 L (0.52-1.04) mg/dL Est GFR (CKD-EPI)AfAm >90 (>60 ml/min/1.73 sqM) Est GFR (CKD-EPI)NonAf >90 (>60 ml/min/1.73 sqM) Glucose 257 H (74-99) mg/dL Calcium 10.7 H (8.4-10.2) mg/dL Total Bilirubin 0.7 (0.2-1.3) mg/dL AST 29 (14-36) U/L ALT 35 H (4-34) U/L Alkaline Phosphatase 130 H (38-126) U/L Total Protein 8.2 (6.3-8.2) g/dL Albumin 4.9 (3.5-5.0) g/dL Disposition Clinical Impression: Cyclic vomiting syndrome, Marijuana abuse Disposition: HOME SELF-CARE Condition: Good Instructions (If sedation given, give patient instructions): Cyclic Vomiting Syndrome (ED), Cannabis Abuse (ED) Is patient prescribed a controlled substance at d/c from ED?: No Referrals: Reggie Denny MD [Primary Care Provider] - 1-2 days Time of Disposition: 15:33
[2024-01-03] MEDS: SODIUM CHLORIDE 0.9% 1,000 ML IV ONE (13:44)
[2024-01-03] MEDS: SODIUM CHLORIDE 0.9% 500 ML 500 ML IV ONE (13:45)
[2024-01-03] MEDS: droPERidol 5 MG/2 ML VIAL IVP ONE (13:46)
[2024-01-03 14:00] LABS: Basophils # (A) 0.1 k/uL (0-0.2); Basophils % (A) 0 %; Eosinophils # (A) 0.3 k/uL (0-0.7); Eosinophils % (A) 1 %; HCT 47.5 % (34.0-46.0); Lymphocytes # (A) 2.3 k/uL (1.0-4.8); Lymphocytes % (A) 10 %; MCH 27.6 pg (25.0-35.0); MCHC 31.5 g/dL (31.0-37.0); MCV 87.5 fL (80.0-100.0); Mean Platelet Volume 7.5; Monocytes # (A) 0.5 k/uL (0-1.0); Monocytes % (A) 2 %; Neutrophils # (A) 20.9 k/uL (1.3-7.7); Neutrophils % (A) 86 %; Platelet Count 720 k/uL (150-450); RBC 5.43 m/uL (3.80-5.40); RDW 14.2 % (11.5-15.5); WBC 24.3 k/uL (3.8-10.6)
[2024-01-03 14:16] LABS: AST 29 U/L (14-36); African American GFR (CKD) >90 (>60 ml/min/1.73 sqM); Albumin 4.9 g/dL (3.5-5.0); Alkaline Phosphatase 130 U/L (38-126); Anion Gap 15 mmol/L; Blood Urea Nitrogen 11 mg/dL (7-17); Calcium 10.7 mg/dL (8.4-10.2); Carbon Dioxide 22 mmol/L (22-30); Chloride 100 mmol/L (98-107); Glucose 257 mg/dL (74-99); Non-African American GFR(CKD) >90 (>60 ml/min/1.73 sqM); Potassium 4.9 mmol/L (3.5-5.1); Sodium 137 mmol/L (137-145); Total Bilirubin 0.7 mg/dL (0.2-1.3); Total Protein 8.2 g/dL (6.3-8.2)
[2024-01-03 14:21] LABS: ALT 35 U/L (4-34)
[2024-01-03] MEDS: METOCLOPRAMIDE 5 MG/ML 2 ML VIAL IVP STA (14:30)
[2024-01-03] MEDS: LORazepam 2 MG/ML INJ IV STA (14:30)
[2024-01-03 15:29] VITALS: BP 124/72; PULSE 69; RESP 16; TEMP 98.7
== END 2024-01-03 16:34 | disposition home or self-care (01) ==
LOC: EC 13:00
DX: F12.10 Cannabis abuse, uncomplicated (principal); R11.15 Cyclical vomiting syndrome unrelated to migraine; F17.200 Nicotine dependence, unspecified, uncomplicated; Z91.040 Latex allergy status; Z91.041 Radiographic dye allergy status; Z91.013 Allergy to seafood; Z88.8 Allergy status to other drugs, medicaments and biological substances
CPT/HCPCS: 36415; 93005; 80053; 85025; 99284; 96374; 96375 ×2; 96361; J2060; J2765; J1790

== ENCOUNTER 2024-01-04 16:19 | Inpatient (IN) | payer MEDICARE, OTHER ==
[2024-01-04] MEDS: METOCLOPRAMIDE 5 MG/ML 2 ML VIAL IVP STA ×2 (16:38→18:33)
--- NOTE | 2024-01-04 16:42 | ED ---
Nausea/Vomiting/Diarrhea HPI - General Chief complaint: Nausea/Vomiting/Diarrhea Stated complaint: nausea and vomiting Time Seen by Provider: 01/04/24 16:27 Source: patient, RN notes reviewed Mode of arrival: wheelchair Limitations: no limitations - History of Present Illness Initial comments: This is a 38-year-old female who presents to the emergency department for nausea and vomiting. Patient was evaluated here for this yesterday as well and dischar ged home when symptoms resolved. Reports a history of gastroparesis and states that this feels like a typical flareup. States that she is often hospitalized and treated with Compazine, which is typically effective. Has been taking Reglan and Zofran at home, which are not helping and she is unable to keep either of them down. She was also told yesterday that it may be related to her chronic marijuana use, and states that she is going to try to stop smoking marijuana as well, however she has not had any in 2 weeks. Reports generalized abdominal cramping from vomiting, which she states always occurs. Denies any localized pain, fevers, or chills. MD complaint: nausea, vomiting - Related Data Home Medications Medication Instructions Recorded Confirmed Gabapentin 800 mg PO TID 10/02/22 01/04/24 oxyCODONE-APAP 10-325MG [Percocet 1 tab PO TID 10/02/22 01/04/24 10-325 mg] Albuterol Sulfate [Albuterol 1 - 2 puff INHALATION RT-Q6H PRN 09/30/23 01/04/24 Sulfate Hfa] Cetirizine HCl 10 mg PO HS 09/30/23 01/04/24 DULoxetine HCL [Cymbalta] 30 mg PO HS 09/30/23 01/04/24 Diphenox-Atrop 2.5-0.025 mg 1 tab PO HS 09/30/23 01/04/24 [Lomotil] Fluticasone/Umeclidin/Vilanter 1 puff INHALATION RT-DAILY 09/30/23 01/04/24 [Trelegy Ellipta 200-62.5-25] Glimepiride 2 mg PO HS 09/30/23 01/04/24 Lumateperone Tosylate [Caplyta] 10.5 mg PO HS 09/30/23 01/04/24 Metoclopramide HCl [Reglan] 10 mg PO HS 09/30/23 01/04/24 Omeprazole 40 mg PO HS 09/30/23 01/04/24 haloperidoL 10 mg PO HS 09/30/23 01/04/24 metFORMIN HCL [Glucophage] 500 mg PO HS 09/30/23 01/04/24 EPINEPHrine (Auto Inject) [Epipen] 0.3 mg IM ONCE PRN 11/05/23 01/04/24 Ibuprofen [Motrin] 800 mg PO TID 11/05/23 01/04/24 Ondansetron Odt [Zofran ODT] 8 mg PO BID PRN 11/05/23 01/04/24 Ubrogepant [Ubrelvy] 50 mg PO DAILY PRN 11/05/23 01/04/24 Previous Rx's Medication Instructions Recorded Atorvastatin [Lipitor] 20 mg PO HS 14 Days #14 tab 02/09/23 traZODone HCL 300 mg PO HS 14 Days #14 tab 02/09/23 Allergies Allergy/AdvReac Type Severity Reaction Status Date / Time Iodinated Contrast Media Allergy Anaphylaxis Verified 01/04/24 18:50 [Iodinated Contrast Media - Oral and] latex Allergy Rash/Hives Verified 01/04/24 18:50 shellfish derived [Shellfish] Allergy Anaphylaxis Verified 01/04/24 18:50 dulaglutide [From Trulicity] AdvReac Nausea & Verified 01/04/24 18:50 Vomiting mirtazapine [From Remeron] AdvReac Hallucinati Verified 01/04/24 18:50 ons semaglutide [From Ozempic] AdvReac Nausea & Verified 01/04/24 18:50 Vomiting Review of Systems ROS Statement: Those systems with pertinent positive or pertinent negative responses have been documented in the HPI. ROS Other: All systems not noted in ROS Statement are negative. 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 History of Any Multi-Drug Resistant Organisms: None Reported, MRSA Date of last positivie culture/infection: 2020 MDRO Source:: labia Past Surgical History: Cholecystectomy, Orthopedic Surgery Additional Past Surgical History / Comment(s): ORIF RIGHT HAND, MIRENA INSERTION, pain procedures.COLONOSCOPY/EGD Past Anesthesia/Blood Transfusion Reactions: No Reported Reaction Past Psychological History: Anxiety, Depression, Schizoaffective Disorder Smoking Status: Current every day smoker Past Alcohol Use History: None Reported Past Drug Use History: Marijuana - Past Family History Mother Family Medical History: Unable to Obtain Additional Family Medical History / Comment(s): Patient states does not any history of her family. General Exam Limitations: no limitations General appearance: alert, in distress Head exam: Present: atraumatic, normocephalic, normal inspection Respiratory exam: Present: normal lung sounds bilaterally. Absent: respiratory distress, wheezes, rales, rhonchi, stridor Cardiovascular Exam: Present: regular rate, normal rhythm, normal heart sounds. Absent: systolic murmur, diastolic murmur, rubs, gallop, clicks GI/Abdominal exam: Present: soft, tenderness (Generalized), normal bowel sounds. Absent: distended Neurological exam: Present: alert, oriented X3, CN II-XII intact Psychiatric exam: Present: normal affect, normal mood Skin exam: Present: warm, dry, intact, normal color. Absent: rash Course Vital Signs 01/04/24 01/04/24 01/04/24 16:20 18:28 19:47 Temperature 97.6 F 98.3 F Pulse Rate 111 H 107 H 90 Pulse Rate [ Right] Respiratory 18 22 18 Rate Blood Pressure 178/138 105/77 129/82 Blood Pressure [Right Arm] O2 Sat by Pulse 94 L 95 94 L Oximetry 01/04/24 01/04/24 20:00 21:41 Temperature 98.2 F Pulse Rate 89 Pulse Rate [ 94 Right] Respiratory 16 16 Rate Blood Pressure 118/73 Blood Pressure 110/72 [Right Arm] O2 Sat by Pulse 91 L 95 Oximetry Medical Decision Making - Medical Decision Making This is a 38-year-old female who presents to the emergency department for nausea and vomiting. Was pt. sent in by a medical professional or institution? @ -No Did you speak to anyone other than the patient for history? @ -No Did you review nursing and triage notes? @ -Yes, and I agree, it is accurate with regards to the patient's symptoms. Were old charts reviewed? @ -Yes, EGD and colonoscopy with Dr. Baker from 12/14/23 demonstrating mild antral gastritis and a small hiatal hernia. Differential Diagnosis? @ -Differential Nausea and Vomiting: Gastroenteritis, cholecystitis, appendicitis, pancreatitis, migraine, benign positional vertigo, food borne illness, pyelonephritis, irritable bowel syndrome, influenza, Covid, GERD, incarcerated hernia, intestinal obstruction, this is not meant to be an all-inclusive list. EKG interpreted by me (3pts min.)? @ -Not obtained X-rays interpreted by me (1pt min.)? @ -Not obtained CT interpreted by me (1pt min.)? @ -Not obtained U/S interpreted by me (1pt. min.)? @ -Not obtained What testing was considered but not performed? (CT, X-rays, U/S, labs)? Why? @ -None What meds were considered but not given? Why? @ -None Did you discuss the management of the patient with other professionals? @ -Yes, Sharmila Pradhan with [facility], who accepts the patient for admission. Did you reconcile home meds? @ -Yes Was smoking cessation discussed for >3mins.? @ -No Was critical care preformed (if so, how long)? @ -No Were there social determinants of health that impacted care today? How? (Homelessness, low income, unemployed, alcoholism, drug addiction, transportation, low edu. Level, literacy, decrease access to med. care, retirement, rehab)? @ -No Was there de-escalation of care discussed even if they declined? (Discuss DNR or withdrawal of care, Hospice)? @ -No What co-morbidities impacted this encounter? (DM, HTN, Smoking, COPD, CAD, Cancer, CVA, Hep., AIDS, mental health diagnosis, sleep apnea, morbid obesity)? @ -Gastroparesis, DM, GERD Was patient admitted / discharged? @ -Admitted. Lab work demonstrates leukocytosis with a white blood cell count of 25.4. This is similar when compared to prior values for the patient when she has bouts of intractable nausea and vomiting. Lactic acid elevated at 7.2. KUB x-ray obtained demonstrating scattered air throughout the colon without evidence of any significant stool burden or dilation of small bowel loops. She has left- sided nephrolithiasis without any evidence of ureteral calculus or obstructive uropathy. CT scan was avoided due to multiple recent CT scans and because symptoms are consistent with prior flareups. She did have a recent EGD and colonoscopy with Dr. Baker on 12/14/2023 demonstrating mild antral gastritis and a small hiatal hernia. When the patient has a flareup she typically requires hospitalization for IV fluids and IV nausea medication. Compazine is what she states is most effective. Maintenance fluids initiated and prn q6 hour Compazine ordered. Patient admitted to medicine for further management. Undiagnosed new problem with uncertain prognosis? @ -None Drug Therapy requiring intensive monitoring for toxicity (Heparin, Nitro, Insulin, Cardizem)? @ -None Were any procedures done? @ -None Diagnosis/symptom? @ -Intractable nausea and vomiting, lactic acidosis Acute, or Chronic, or Acute on Chronic? @ -Acute Uncomplicated (without systemic symptoms) or Complicated (systemic symptoms)? @ -Complicated Side effects of treatment? @ -None Exacerbation, Progression, or Severe Exacerbation] @ -Not applicable Poses a threat to life or bodily function? @ -Yes This case was discussed in detail with the attending ED physician, Dr. Hauser. Presentation, findings, and treatment plan discussed in detail as well. - Lab Data Result diagrams: 01/04/24 16:49 01/04/24 16:49 Lab Results 01/04/24 01/04/24 01/04/24 Range/Units 16:49 16:49 16:49 WBC 25.7 H (3.8-10.6) k/uL RBC 5.09 (3.80-5.40) m/uL Hgb 14.2 (11.4-16.0) gm/dL Hct 43.3 (34.0-46.0) % MCV 85.0 (80.0-100.0) fL MCH 27.8 (25.0-35.0) pg MCHC 32.7 (31.0-37.0) g/dL RDW 14.5 (11.5-15.5) % Plt Count 722 H (150-450) k/uL MPV 7.7 Neutrophils % 75 % Lymphocytes % 17 % Monocytes % 6 % Eosinophils % 1 % Basophils % 0 % Neutrophils # 19.2 H (1.3-7.7) k/uL Lymphocytes # 4.2 (1.0-4.8) k/uL Monocytes # 1.5 H (0-1.0) k/uL Eosinophils # 0.2 (0-0.7) k/uL Basophils # 0.1 (0-0.2) k/uL Sodium 134 L (137-145) mmol/L Potassium 3.9 (3.5-5.1) mmol/L Chloride 89 L (98-107) mmol/L Carbon Dioxide 26 (22-30) mmol/L Anion Gap 19 mmol/L BUN 19 H (7-17) mg/dL Creatinine 0.68 (0.52-1.04) mg/dL Est GFR (CKD-EPI)AfAm >90 (>60 ml/min/1.73 sqM) Est GFR (CKD-EPI)NonAf >90 (>60 ml/min/1.73 sqM) Glucose 276 H (74-99) mg/dL Lactic Ac Sepsis Rflx Plasma Lactic Acid Martín 7.2 H* (0.7-2.0) mmol/L Calcium 10.8 H (8.4-10.2) mg/dL Phosphorus (2.5-4.5) mg/dL Magnesium (1.6-2.3) mg/dL Total Bilirubin 0.8 (0.2-1.3) mg/dL AST 36 (14-36) U/L ALT 35 H (4-34) U/L Alkaline Phosphatase 109 (38-126) U/L Total Protein 8.5 H (6.3-8.2) g/dL Albumin 5.1 H (3.5-5.0) g/dL Amylase 64 (30-110) U/L Lipase 35 (23-300) U/L Acetone, Qual (Negative) 01/04/24 01/04/24 01/04/24 Range/Units 16:49 16:49 17:26 WBC (3.8-10.6) k/uL RBC (3.80-5.40) m/uL Hgb (11.4-16.0) gm/dL Hct (34.0-46.0) % MCV (80.0-100.0) fL MCH (25.0-35.0) pg MCHC (31.0-37.0) g/dL RDW (11.5-15.5) % Plt Count (150-450) k/uL MPV Neutrophils % % Lymphocytes % % Monocytes % % Eosinophils % % Basophils % % Neutrophils # (1.3-7.7) k/uL Lymphocytes # (1.0-4.8) k/uL Monocytes # (0-1.0) k/uL Eosinophils # (0-0.7) k/uL Basophils # (0-0.2) k/uL Sodium (137-145) mmol/L Potassium (3.5-5.1) mmol/L Chloride (98-107) mmol/L Carbon Dioxide (22-30) mmol/L Anion Gap mmol/L BUN (7-17) mg/dL Creatinine (0.52-1.04) mg/dL Est GFR (CKD-EPI)AfAm (>60 ml/min/1.73 sqM) Est GFR (CKD-EPI)NonAf (>60 ml/min/1.73 sqM) Glucose (74-99) mg/dL Lactic Ac Sepsis Rflx Y Plasma Lactic Acid Martín (0.7-2.0) mmol/L Calcium (8.4-10.2) mg/dL Phosphorus 5.2 H (2.5-4.5) mg/dL Magnesium 1.4 L (1.6-2.3) mg/dL Total Bilirubin (0.2-1.3) mg/dL AST (14-36) U/L ALT (4-34) U/L Alkaline Phosphatase (38-126) U/L Total Protein (6.3-8.2) g/dL Albumin (3.5-5.0) g/dL Amylase (30-110) U/L Lipase (23-300) U/L Acetone, Qual Negative (Negative) - Radiology Data Radiology results: report reviewed, image reviewed Disposition Clinical Impression: Intractable nausea and vomiting, Lactic acidosis Disposition: ADMITTED IP TO THIS HOSP
[2024-01-04] MEDS: SODIUM CHLORIDE 0.9% 2,000 ML IV STA (16:52)
[2024-01-04] MEDS: PROCHLORPERAZINE INJ 10 MG/2 ML VIAL IVP STA (16:52)
[2024-01-04] MEDS: MORPHINE SULFATE 4 MG/ML SYRINGE IVP STA (16:55)
[2024-01-04] MEDS: diphenhydrAMINE 50 MG/ML 1 ML VIAL IVP STA (16:58)
[2024-01-04 17:23] LABS: AST 36 U/L (14-36); African American GFR (CKD) >90 (>60 ml/min/1.73 sqM); Albumin 5.1 g/dL (3.5-5.0); Alkaline Phosphatase 109 U/L (38-126); Amylase 64 U/L (30-110); Anion Gap 19 mmol/L; Basophils # (A) 0.1 k/uL (0-0.2); Basophils % (A) 0 %; Blood Urea Nitrogen 19 mg/dL (7-17); Calcium 10.8 mg/dL (8.4-10.2); Carbon Dioxide 26 mmol/L (22-30); Chloride 89 mmol/L (98-107); Eosinophils # (A) 0.2 k/uL (0-0.7); Eosinophils % (A) 1 %; Glucose 276 mg/dL (74-99); HCT 43.3 % (34.0-46.0); HGB 14.2 gm/dL (11.4-16.0); Lipase 35 U/L (23-300); Lymphocytes # (A) 4.2 k/uL (1.0-4.8); Lymphocytes % (A) 17 %; MCH 27.8 pg (25.0-35.0); MCHC 32.7 g/dL (31.0-37.0); Mean Platelet Volume 7.7; Monocytes # (A) 1.5 k/uL (0-1.0); Monocytes % (A) 6 %; Neutrophils # (A) 19.2 k/uL (1.3-7.7); Neutrophils % (A) 75 %; Non-African American GFR(CKD) >90 (>60 ml/min/1.73 sqM); Platelet Count 722 k/uL (150-450); Potassium 3.9 mmol/L (3.5-5.1); RBC 5.09 m/uL (3.80-5.40); RDW 14.5 % (11.5-15.5); Sodium 134 mmol/L (137-145); Total Bilirubin 0.8 mg/dL (0.2-1.3); Total Protein 8.5 g/dL (6.3-8.2); WBC 25.7 k/uL (3.8-10.6)
[2024-01-04 17:48] LABS: ALT 35 U/L (4-34)
--- NOTE | 2024-01-04 17:52 | XR ---
EXAMINATION TYPE: XR KUB DATE OF EXAM: 01/04/2024 Comparison: 06/23/2017 Clinical History: 38-year-old female Abdominal pain Findings: Lung bases are clear. No evidence for free intraperitoneal air. Cholecystectomy clips. 1.5 cm calcification left mid abdomen. Smaller adjacent calcification. Phlebolith in the left side of the pelvis. IUD is present. Scattered air throughout the colon. No significant stool burden. No dilated small bowel loops. Impression: 1. Left-sided nephrolithiasis measuring up to 1.5 cm. 2. Status post cholecystectomy. IUD in place.
[2024-01-04] MEDS ORDERED: ACETAMINOPHEN TAB 325 MG TAB PO PRN (18:10)
[2024-01-04] MEDS ORDERED: HYDROcodone/APAP 5-325MG 1 EACH TAB PO PRN (18:10)
[2024-01-04] MEDS ORDERED: NALOXONE 0.4 MG/ML 1 ML VIAL IV PRN (18:10)
[2024-01-04 19:05] LABS: Magnesium 1.4 mg/dL (1.6-2.3); Phosphorus 5.2 mg/dL (2.5-4.5)
[2024-01-04] MEDS ORDERED: NON FORMULARY DRUG (Epinephrine (Auto Inject) 0.3 MG/0.3 ML Each) IM PRN (19:10)
[2024-01-04] MEDS ORDERED: NON FORMULARY DRUG (Ubrogepant [Ubrelvy] 50 MG Tablet) PO PRN (19:10)
[2024-01-04] MEDS ORDERED: ONDANSETRON ODT 8 MG TAB.RAPDIS PO PRN (19:10)
[2024-01-04] MEDS ORDERED: ALBUTEROL HFA INHALER INHALATION PRN (19:10)
[2024-01-04] MEDS: PROCHLORPERAZINE INJ 10 MG/2 ML VIAL IVP PRN (19:30)
[2024-01-04] MEDS: FAMOTIDINE 20 MG/2 ML VIAL IV STA (19:40)
[2024-01-04] MEDS: KETOROLAC 15 MG/ML 1 ML VIAL IVP PRN (19:44)
[2024-01-04] MEDS: IPRATROPIUM 0.5 MG/2.5 ML NEBU INHALATION SCH (20:55)
[2024-01-04] MEDS: MAGNESIUM SULFATE-D5W PMX 1 GM in DEXTROSE/WATER 1 100ML.BAG IVPB ONE (21:29)
[2024-01-04] MEDS: SODIUM CHLORIDE 0.9% 1,000 ML IV STA (21:31)
[2024-01-04] MEDS: LORATADINE 10 MG TAB PO SCH (21:45)
[2024-01-04] MEDS: haloperidoL 5 MG TAB PO SCH (21:45)
[2024-01-04] MEDS: DULoxetine HCL 30 MG CAPSULE.DR PO SCH (21:45)
[2024-01-04] MEDS: metFORMIN 500 MG TAB PO SCH (21:45)
[2024-01-04] MEDS: GLIMEPIRIDE 2 MG TAB PO SCH (21:45)
[2024-01-04] MEDS: DIPHENOX-ATROP 2.5-0.025 MG 1 EACH TAB PO SCH (21:45)
[2024-01-04] MEDS: ATORVASTATIN 20 MG TAB PO SCH (21:45)
[2024-01-04] MEDS: LUMATEPERONE TOSYLATE PO SCH (21:45)
[2024-01-04] MEDS: traZODone HCL 100 MG TAB PO SCH (21:46)
[2024-01-04] MEDS: PANTOPRAZOLE 40 MG TABLET PO SCH (21:46)
[2024-01-04] MEDS: METOCLOPRAMIDE 10 MG TAB PO SCH (21:46)
[2024-01-04] MEDS: GABAPENTIN 400 MG CAP PO SCH (23:03)
[2024-01-04] MEDS: oxyCODONE-APAP 10-325MG 1 EACH TAB PO SCH (23:03)
[2024-01-04] MEDS: IBUPROFEN 800 MG TAB PO SCH (23:03)
[2024-01-05 01:50] LABS: Appearance,Urine Cloudy (Clear); Bacteria,Urine Rare /hpf; Bilirubin,Urine Negative (Negative); Blood,Urine Small (Negative); Budding Yeast,Urine Rare /hpf; Color,Urine Yellow; Glucose,Urine (UA) Negative (Negative); Hyaline Casts,Urine 5 /lpf (0-2); Ketones,Urine Negative (Negative); Leukocyte Esterase,Urine Negative (Negative); Mucus,Urine Occasional /hpf; Nitrite,Urine Negative (Negative); PH, Urine 6.5 (5.0-8.0); Protein,Urine 2+ (Negative); RBC,Urine 2 /hpf (0-5); Specific Gravity,Urine 1.013 (1.001-1.035); Squamous Epithelial Cell,Urine 4 /hpf (0-4); Urobilinogen,Urine <2.0 mg/dL (<2.0); WBC,Urine 4 /hpf (0-5)
[2024-01-05] MEDS: ONDANSETRON 4 MG/2 ML VIAL IVP PRN (02:10)
[2024-01-05] MEDS: MORPHINE SULFATE 4 MG/ML SYRINGE IV PRN (02:11)
[2024-01-05 02:50] VITALS: RESP 18
[2024-01-05 07:49] LABS: Glucose,Whole Blood 177 mg/dL (70-110)
[2024-01-05 08:21] VITALS: BP 128/86; PULSE 100; TEMP 97.8
[2024-01-05] MEDS: PANTOPRAZOLE 40 MG/10 ML VIAL IV SCH (08:36)
[2024-01-05] MEDS: SYMBICORT 80-4.5 MCG INHALER INHALATION SCH (08:42)
== END 2024-01-05 10:12 | disposition left against medical advice (07) | DRG 74 ==
LOC: EC 16:19 → 4SSUR 18:06
PROVIDERS: ADMIT Hospitalist; ATTEND Hospitalist
DX: E11.43 Type 2 diabetes mellitus with diabetic autonomic (poly)neuropathy (principal); E87.20 Acidosis, unspecified; F25.9 Schizoaffective disorder, unspecified; K31.84 Gastroparesis; F32.A Depression, unspecified; J45.909 Unspecified asthma, uncomplicated; Z53.21 Procedure and treatment not carried out due to patient leaving prior to being seen by health care provider; E78.5 Hyperlipidemia, unspecified; K21.9 Gastro-esophageal reflux disease without esophagitis; F12.90 Cannabis use, unspecified, uncomplicated; F17.200 Nicotine dependence, unspecified, uncomplicated; F41.9 Anxiety disorder, unspecified; G43.909 Migraine, unspecified, not intractable, without status migrainosus; N20.0 Calculus of kidney; Z79.51 Long term (current) use of inhaled steroids; Z79.84 Long term (current) use of oral hypoglycemic drugs; Z79.891 Long term (current) use of opiate analgesic; Z79.899 Other long term (current) drug therapy; K29.70 Gastritis, unspecified, without bleeding; K44.9 Diaphragmatic hernia without obstruction or gangrene; M19.90 Unspecified osteoarthritis, unspecified site; Z88.8 Allergy status to other drugs, medicaments and biological substances; Z09 Encounter for follow-up examination after completed treatment for conditions other than malignant neoplasm; Z91.041 Radiographic dye allergy status; Z91.040 Latex allergy status; Z86.14 Personal history of Methicillin resistant Staphylococcus aureus infection
CPT/HCPCS: 36415; 74018; 80053; 81001; 81025; 82009; 82150; 83605; 83690; 83735; 84100; 85025; 96361; 96374; 96375; 96376; 99285

== ENCOUNTER 2024-01-16 06:51 | Observation (INO) | payer MEDICARE, OTHER ==
--- NOTE | 2024-01-16 07:22 | ED ---
General Adult HPI - General Chief complaint: Nausea/Vomiting/Diarrhea Stated complaint: ABD Pain, NV Time Seen by Provider: 01/16/24 07:00 Source: patient, RN notes reviewed, old records reviewed Mode of arrival: wheelchair Limitations: no limitations - History of Present Illness Initial comments: This is a 38-year-old female who presents to the emergency department stating that she felt fine when she went to bed last night she woke up with left-sided back pain and left-sided flank pain. Patient states she has never had this before. Patient states she hurts so bad it makes her vomit. Patient denies any fever or chills. Patient has any dysuria hematuria urinary frequency. Patient denies any alcohol or drug use. Patient denies any chest pain or difficulty breathing. - Related Data Home Medications Medication Instructions Recorded Confirmed Gabapentin 800 mg PO TID 10/02/22 01/04/24 oxyCODONE-APAP 10-325MG [Percocet 1 tab PO TID 10/02/22 01/04/24 10-325 mg] Albuterol Sulfate [Albuterol 1 - 2 puff INHALATION RT-Q6H PRN 09/30/23 01/04/24 Sulfate Hfa] Cetirizine HCl 10 mg PO HS 09/30/23 01/04/24 DULoxetine HCL [Cymbalta] 30 mg PO HS 09/30/23 01/04/24 Diphenox-Atrop 2.5-0.025 mg 1 tab PO HS 09/30/23 01/04/24 [Lomotil] Fluticasone/Umeclidin/Vilanter 1 puff INHALATION RT-DAILY 09/30/23 01/04/24 [Trelegy Ellipta 200-62.5-25] Glimepiride 2 mg PO HS 09/30/23 01/04/24 Lumateperone Tosylate [Caplyta] 10.5 mg PO HS 09/30/23 01/04/24 Metoclopramide HCl [Reglan] 10 mg PO HS 09/30/23 01/04/24 Omeprazole 40 mg PO HS 09/30/23 01/04/24 haloperidoL 10 mg PO HS 09/30/23 01/04/24 metFORMIN HCL [Glucophage] 500 mg PO HS 09/30/23 01/04/24 EPINEPHrine (Auto Inject) [Epipen] 0.3 mg IM ONCE PRN 11/05/23 01/04/24 Ibuprofen [Motrin] 800 mg PO TID 11/05/23 01/04/24 Ondansetron Odt [Zofran ODT] 8 mg PO BID PRN 11/05/23 01/04/24 Ubrogepant [Ubrelvy] 50 mg PO DAILY PRN 11/05/23 01/04/24 Previous Rx's Medication Instructions Recorded Atorvastatin [Lipitor] 20 mg PO HS 14 Days #14 tab 02/09/23 traZODone HCL 300 mg PO HS 14 Days #14 tab 02/09/23 Allergies Allergy/AdvReac Type Severity Reaction Status Date / Time Iodinated Contrast Media Allergy Anaphylaxis Verified 01/16/24 06:56 [Iodinated Contrast Media - Oral and] latex Allergy Rash/Hives Verified 01/16/24 06:56 shellfish derived [Shellfish] Allergy Anaphylaxis Verified 01/16/24 06:56 dulaglutide [From Trulicity] AdvReac Nausea & Verified 01/16/24 06:56 Vomiting mirtazapine [From Remeron] AdvReac Hallucinati Verified 01/16/24 06:56 ons semaglutide [From Ozempic] AdvReac Nausea & Verified 01/16/24 06:56 Vomiting Review of Systems ROS Statement: Those systems with pertinent positive or pertinent negative responses have been documented in the HPI. ROS Other: All systems not noted in ROS Statement are negative. 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 History of Any Multi-Drug Resistant Organisms: None Reported, MRSA Date of last positivie culture/infection: 2020 MDRO Source:: labia Past Surgical History: Cholecystectomy, Orthopedic Surgery Additional Past Surgical History / Comment(s): ORIF RIGHT HAND, MIRENA INSERTION, pain procedures.COLONOSCOPY/EGD Past Anesthesia/Blood Transfusion Reactions: No Reported Reaction Past Psychological History: Anxiety, Depression, Schizoaffective Disorder Smoking Status: Current some day smoker Past Alcohol Use History: None Reported Past Drug Use History: Marijuana - Past Family History Mother Family Medical History: Unable to Obtain Additional Family Medical History / Comment(s): Patient states does not any history of her family. General Exam - General Exam Comments Initial Comments: GENERAL: Patient is well-developed and well-nourished. Patient is nontoxic and well- hydrated and is in moderate distress. ENT: Neck is soft and supple. No significant lymphadenopathy is noted. Oropharynx is clear. Moist mucous membranes. Neck has full range of motion without eliciting any pain. EYES: The sclera were anicteric and conjunctiva were pink and moist. Extraocular movements were intact and pupils were equal round and reactive to light. Eyelids were unremarkable. PULMONARY: Unlabored respirations. Good breath sounds bilaterally. No audible rales rhonc hi or wheezing was noted. CARDIOVASCULAR: There is a regular rate and rhythm without any murmurs gallops or rubs. ABDOMEN: Patient has some left flank tenderness SKIN: Skin is clear with no lesions or rashes and otherwise unremarkable. NEUROLOGIC: Patient is alert and oriented x3. Cranial nerves II through XII are grossly intact. Motor and sensory are also intact. Normal speech, volume and content. Symmetrical smile. MUSCULOSKELETAL: Normal extremities with adequate strength and full range of motion. LYMPHATICS: No significant lymphadenopathy is noted PSYCHIATRIC: Normal psychiatric evaluation. Limitations: no limitations Course Vital Signs 01/16/24 01/16/24 01/16/24 06:53 08:00 08:20 Temperature 97.5 F L Pulse Rate 89 91 Respiratory 20 18 18 Rate Blood Pressure 70/39 161/101 O2 Sat by Pulse 96 100 Oximetry 01/16/24 08:50 Temperature Pulse Rate 84 Respiratory 18 Rate Blood Pressure 150/88 O2 Sat by Pulse 96 Oximetry Medical Decision Making - Medical Decision Making EKG is interpreted by myself. EKG shows sinus tachycardia at 100 bpm OK interval is 148 QRS is 77 QT interval 321 QTc is 378. Patient's EKG shows no ST segment elevation or depression Was pt. sent in by a medical professional or institution (, PA, GENERAL ENGINEERING TEACHER, urgent care, hospital, or residential...) When possible be specific @ -No Did you speak to anyone other than the patient for history (EMS, parent, family, police, friend...)? What history was obtained from this source @ -No Did you review nursing and triage notes (agree or disagree)? Why? @ -I reviewed and agree with nursing and triage notes Were old charts reviewed (outside hosp., previous admission, EMS record, old EKG, old radiological studies, urgent care reports/EKG's, residential records)? Report findings @ -No old charts were reviewed Differential Diagnosis? @ -Differential Abdominal Pain Women: Appendicitis, Cholecystitis, diverticulosis, ischemic bowel, pancreatitis, hepatitis, UTI, gastroenteritis, AAA, incarcerated hernia, bowel obstruction, constipation, inflammatory bowel, hepatitis, peptic ulcer disease, splenic infarction, perforated viscus, vulvitis, ovarian torsion, PID, kidney stone, placenta abruption, this is not meant to be an all-inclusive list EKG interpreted by me (3pts min.). @ -As above X-rays interpreted by me (1pt min.). @ -None done CT interpreted by me (1pt min.). @ -None done U/S interpreted by me (1pt. min.). @ -Ultrasound showed a 1 cm stone with in the pelvis of the kidney and mild hydronephrosis What testing was considered but not performed or refused? (CT, X-rays, U/S, labs)? Why? @ -None What meds were considered but not given or refused? Why? @ -None Did you discuss the management of the patient with other professionals (professionals i.e. , PA, GENERAL ENGINEERING TEACHER, lab, RT, psych nurse, social service agency director, religious educator, t eacher, security flex utility officer, employment evaluator/case manager)? Give summary @ -I spoke with Dr. Holguin and he agreed to admit the patient to the patient recommending orders I will consult urology I spoke with Dr. Eason and he will be placed on consult Was smoking cessation discussed for >3mins.? @ -No Was critical care preformed (if so, how long)? @ -No Were there social determinants of health that impacted care today? How? (Homelessness, low income, unemployed, alcoholism, drug addiction, transportation, low edu. Level, literacy, decrease access to med. care, alf, rehab)? @ -No Was there de-escalation of care discussed even if they declined (Discuss DNR or withdrawal of care, Hospice)? DNR status @ -No What co-morbidities impacted this encounter? (DM, HTN, Smoking, COPD, CAD, Cancer, CVA, ARF, Chemo, Hep., AIDS, mental health diagnosis, sleep apnea, morbid obesity)? @ -None Was patient admitted / discharged? Hospital course, mention meds given and route, prescriptions, significant lab abnormalities, going to OR and other pertinent info. @ -Patient got multiple antiemetics Zofran and Reglan and droperidol and continued to have nausea and vomiting. Patient will be admitted will be hydrated and urology will be consulted to address the possible hydronephrosis from a kidney stone. Undiagnosed new problem with uncertain prognosis? @ -No Drug Therapy requiring intensive monitoring for toxicity (Heparin, Nitro, Insulin, Cardizem)? @ -No Were any procedures done? @ -No Diagnosis/symptom? @ -Gastroparesis Acute, or Chronic, or Acute on Chronic? @ -Acute Uncomplicated (without systemic symptoms) or Complicated (systemic symptoms)? @ -Complicated Side effects of treatment? @ -No Exacerbation, Progression, or Severe Exacerbation? @ -No Poses a threat to life or bodily function? How? (Chest pain, [place], [place], pneumonia, PE, COPD, DKA, ARF, appy, cholecystitis, CVA, Diverticulitis, Homicidal, Suicidal, threat to staff... and all critical care pts) @ -No Diagnosis/symptom? @ -Kidney stone Acute, or Chronic, or Acute on Chronic? @ -Acute Uncomplicated (without systemic symptoms) or Complicated (systemic symptoms)? @ -Complicated Side effects of treatment? @ -None Exacerbation, Progression, or Severe Exacerbation] @ -No Poses a threat to life or bodily function? @ -No Diagnosis/symptom? @ -Marijuana abuse Acute, or Chronic, or Acute on Chronic? @ -Acute Uncomplicated (without systemic symptoms) or Complicated (systemic symptoms)? @ -Complicated Side effects of treatment? @ -None Exacerbation, Progression, or Severe Exacerbation] @ -No Poses a threat to life or bodily function? @ -No need - Lab Data Result diagrams: 01/16/24 07:05 01/16/24 07:05 Lab Results 01/16/24 01/16/24 01/16/24 Range/Units 07:05 07:05 07:59 WBC 12.8 H (3.8-10.6) k/uL RBC 4.34 (3.80-5.40) m/uL Hgb 12.1 (11.4-16.0) gm/dL Hct 37.4 (34.0-46.0) % MCV 86.2 (80.0-100.0) fL MCH 27.8 (25.0-35.0) pg MCHC 32.3 (31.0-37.0) g/dL RDW 14.7 (11.5-15.5) % Plt Count 371 (150-450) k/uL MPV 8.4 Neutrophils % 56 % Lymphocytes % 31 % Monocytes % 7 % Eosinophils % 3 % Basophils % 1 % Neutrophils # 7.2 (1.3-7.7) k/uL Lymphocytes # 4.0 (1.0-4.8) k/uL Monocytes # 0.9 (0-1.0) k/uL Eosinophils # 0.4 (0-0.7) k/uL Basophils # 0.1 (0-0.2) k/uL Sodium 137 (137-145) mmol/L Potassium 4.4 (3.5-5.1) mmol/L Chloride 104 (98-107) mmol/L Carbon Dioxide 24 (22-30) mmol/L Anion Gap 9 mmol/L BUN 10 (7-17) mg/dL Creatinine 0.42 L (0.52-1.04) mg/dL Est GFR (CKD-EPI)AfAm >90 (>60 ml/min/1.73 sqM) Est GFR (CKD-EPI)NonAf >90 (>60 ml/min/1.73 sqM) Glucose 181 H (74-99) mg/dL Calcium 9.1 (8.4-10.2) mg/dL Total Bilirubin 0.4 (0.2-1.3) mg/dL AST 38 H (14-36) U/L ALT 35 H (4-34) U/L Alkaline Phosphatase 87 (38-126) U/L Total Protein 6.5 (6.3-8.2) g/dL Albumin 4.0 (3.5-5.0) g/dL Amylase 53 (30-110) U/L Lipase 45 (23-300) U/L Urine Color Yellow Urine Appearance Clear (Clear) Urine pH 6.0 (5.0-8.0) Ur Specific Eas[place] 1.017 (1.001-1.035) Urine Protein Trace H (Negative) Urine Glucose (UA) Negative (Negative) Urine Ketones Negative (Negative) Urine Blood Moderate H (Negative) Urine Nitrite Negative (Negative) Urine Bilirubin Negative (Negative) Urine Urobilinogen <2.0 (<2.0) mg/dL Ur Leukocyte Esterase Trace H (Negative) Urine RBC 173 H (0-5) /hpf Urine WBC 7 H (0-5) /hpf Ur Squamous Epith Cells 5 H (0-4) /hpf Urine Bacteria Rare H (None) /hpf Urine Mucus Rare H (None) /hpf Urine Opiates Screen (NotDetected) Ur Oxycodone Screen (NotDetected) Urine Methadone Screen (NotDetected) Ur Barbiturates Screen (NotDetected) U Tricyclic Antidepress (NotDetected) Ur Phencyclidine Scrn (NotDetected) Ur Amphetamines Screen (NotDetected) U Methamphetamines Scrn (NotDetected) U Benzodiazepines Scrn (NotDetected) Urine Cocaine Screen (NotDetected) U Marijuana (THC) Screen (NotDetected) 01/16/24 Range/Units 07:59 WBC (3.8-10.6) k/uL RBC (3.80-5.40) m/uL Hgb (11.4-16.0) gm/dL Hct (34.0-46.0) % MCV (80.0-100.0) fL MCH (25.0-35.0) pg MCHC (31.0-37.0) g/dL RDW (11.5-15.5) % Plt Count (150-450) k/uL MPV Neutrophils % % Lymphocytes % % Monocytes % % Eosinophils % % Basophils % % Neutrophils # (1.3-7.7) k/uL Lymphocytes # (1.0-4.8) k/uL Monocytes # (0-1.0) k/uL Eosinophils # (0-0.7) k/uL Basophils # (0-0.2) k/uL Sodium (137-145) mmol/L Potassium (3.5-5.1) mmol/L Chloride (98-107) mmol/L Carbon Dioxide (22-30) mmol/L Anion Gap mmol/L BUN (7-17) mg/dL Creatinine (0.52-1.04) mg/dL Est GFR (CKD-EPI)AfAm (>60 ml/min/1.73 sqM) Est GFR (CKD-EPI)NonAf (>60 ml/min/1.73 sqM) Glucose (74-99) mg/dL Calcium (8.4-10.2) mg/dL Total Bilirubin (0.2-1.3) mg/dL AST (14-36) U/L ALT (4-34) U/L Alkaline Phosphatase (38-126) U/L Total Protein (6.3-8.2) g/dL Albumin (3.5-5.0) g/dL Amylase (30-110) U/L Lipase (23-300) U/L Urine Color Urine Appearance (Clear) Urine pH (5.0-8.0) Ur Specific [place] (1.001-1.035) Urine Protein (Negative) Urine Glucose (UA) (Negative) Urine Ketones (Negative) Urine Blood (Negative) Urine Nitrite (Negative) Urine Bilirubin (Negative) Urine Urobilinogen (<2.0) mg/dL Ur Leukocyte Esterase (Negative) Urine RBC (0-5) /hpf Urine WBC (0-5) /hpf Ur Squamous Epith Cells (0-4) /hpf Urine Bacteria (None) /hpf Urine Mucus (None) /hpf Urine Opiates Screen Not Detected (NotDetected) Ur Oxycodone Screen Detected H (NotDetected) Urine Methadone Screen Not Detected (NotDetected) Ur Barbiturates Screen Not Detected (NotDetected) U Tricyclic Antidepress Not Detected (NotDetected) Ur Phencyclidine Scrn Not Detected (NotDetected) Ur Amphetamines Screen Not Detected (NotDetected) U Methamphetamines Scrn Not Detected (NotDetected) U Benzodiazepines Scrn Not Detected (NotDetected) Urine Cocaine Screen Not Detected (NotDetected) U Marijuana (THC) Screen Detected H (NotDetected) Disposition Clinical Impression: Kidney stone, Gastroparesis, Marijuana abuse Disposition: ADMITTED IP TO THIS [facility] Referrals: Reggie Denny MD [Primary Care Provider] - 1-2 days Time of Disposition: 11:14
[2024-01-16] MEDS: SODIUM CHLORIDE 0.9% 1,000 ML IV ONE ×2 (07:56→15:38)
[2024-01-16] MEDS: SODIUM CHLORIDE 0.9% 500 ML 500 ML IV ONE ×2 (07:56→11:18)
[2024-01-16] MEDS: ONDANSETRON 4 MG/2 ML VIAL IVP STA ×2 (07:56→11:50)
[2024-01-16] MEDS: KETOROLAC 15 MG/ML 1 ML VIAL IVP STA (07:57)
[2024-01-16 08:02] LABS: Basophils # (A) 0.1 k/uL (0-0.2); Basophils % (A) 1 %; Eosinophils # (A) 0.4 k/uL (0-0.7); Eosinophils % (A) 3 %; HCT 37.4 % (34.0-46.0); HGB 12.1 gm/dL (11.4-16.0); Lymphocytes % (A) 31 %; MCH 27.8 pg (25.0-35.0); MCHC 32.3 g/dL (31.0-37.0); MCV 86.2 fL (80.0-100.0); Mean Platelet Volume 8.4; Monocytes # (A) 0.9 k/uL (0-1.0); Monocytes % (A) 7 %; Neutrophils # (A) 7.2 k/uL (1.3-7.7); Neutrophils % (A) 56 %; Platelet Count 371 k/uL (150-450); RBC 4.34 m/uL (3.80-5.40); RDW 14.7 % (11.5-15.5); WBC 12.8 k/uL (3.8-10.6)
[2024-01-16 08:11] LABS: ALT 35 U/L (4-34); African American GFR (CKD) >90 (>60 ml/min/1.73 sqM); Amylase 53 U/L (30-110); Anion Gap 9 mmol/L; Blood Urea Nitrogen 10 mg/dL (7-17); Calcium 9.1 mg/dL (8.4-10.2); Carbon Dioxide 24 mmol/L (22-30); Chloride 104 mmol/L (98-107); Glucose 181 mg/dL (74-99); Lipase 45 U/L (23-300); Non-African American GFR(CKD) >90 (>60 ml/min/1.73 sqM); Potassium 4.4 mmol/L (3.5-5.1); Sodium 137 mmol/L (137-145); Total Bilirubin 0.4 mg/dL (0.2-1.3); Total Protein 6.5 g/dL (6.3-8.2)
[2024-01-16 08:12] LABS: AST 38 U/L (14-36); Alkaline Phosphatase 87 U/L (38-126)
[2024-01-16 08:26] LABS: Appearance,Urine Clear (Clear); Bacteria,Urine Rare /hpf; Bilirubin,Urine Negative (Negative); Blood,Urine Moderate (Negative); Color,Urine Yellow; Glucose,Urine (UA) Negative (Negative); Ketones,Urine Negative (Negative); Leukocyte Esterase,Urine Trace (Negative); Mucus,Urine Rare /hpf; Nitrite,Urine Negative (Negative); Protein,Urine Trace (Negative); RBC,Urine 173 /hpf (0-5); Specific Gravity,Urine 1.017 (1.001-1.035); Squamous Epithelial Cell,Urine 5 /hpf (0-4); Urobilinogen,Urine <2.0 mg/dL (<2.0); WBC,Urine 7 /hpf (0-5)
[2024-01-16 08:45] LABS: Amphetamine Screen,Urine Not Detected (NotDetected); Barbiturate Screen,Urine Not Detected (NotDetected); Benzodiazepines Screen,Urine Not Detected (NotDetected); Cocaine Screen,Urine Not Detected (NotDetected); Methadone Screen, Urine Not Detected (NotDetected); Opiate Screen,Urine Not Detected (NotDetected); Oxycodone Screen, Urine Detected (NotDetected); Phencyclidine Screen,Urine Not Detected (NotDetected); Tricyclic Antidepressant,Urine Not Detected (NotDetected); Urn Cannabinoid Scrn Detected (NotDetected)
[2024-01-16] MEDS: droPERidol 5 MG/2 ML VIAL IVP ONE (08:53)
[2024-01-16] MEDS: LORazepam 2 MG/ML INJ IV STA ×3 (08:53→11:51)
--- NOTE | 2024-01-16 09:49 | US ---
EXAMINATION TYPE: US renals and bladder DATE OF EXAM: 01/16/2024 COMPARISON: CT 2023 CLINICAL INDICATION: Female, 38 years old with history of Kidney stone; Abdomen pain EXAM MEASUREMENTS: Right Kidney: 10.4 x 4.8 x 5.3 cm Left Kidney: 10.3 x 5.6 x 6.4 cm Difficult and limited study due to patient body habitus Right Kidney: wnl Left Kidney: 1.0cm stone in renal pelvis causing mild hydronephrosis Bladder: wnl Bilateral Jets seen: yes No masses are identified. The urinary bladder is anechoic. Bilateral ureteral jets are seen. IMPRESSION: 1 cm calculus left renal pelvis resulting in mild hydronephrosis.
[2024-01-16] MEDS: METOCLOPRAMIDE 5 MG/ML 2 ML VIAL IVP STA (10:28)
[2024-01-16] MEDS: ONDANSETRON 4 MG/2 ML VIAL IVP PRN (15:37)
[2024-01-16] MEDS ORDERED: UBROGEPANT 50 MG PO PRN (17:34)
[2024-01-16] MEDS ORDERED: ALBUTEROL NEBULIZED 2.5 MG/3 ML INHALATION PRN (17:34)
[2024-01-16] MEDS: oxyCODONE-APAP 10-325MG 1 EACH TAB PO PRN (18:01)
[2024-01-16] MEDS: PANTOPRAZOLE 40 MG/10 ML VIAL IVP SCH (18:01)
[2024-01-16] MEDS: haloperidoL 5 MG TAB PO SCH (21:29)
[2024-01-16] MEDS: LORATADINE 10 MG TAB PO SCH (21:29)
[2024-01-16] MEDS: DIPHENOX-ATROP 2.5-0.025 MG 1 EACH TAB PO SCH (21:29)
[2024-01-16] MEDS: DULoxetine HCL 30 MG CAPSULE.DR PO SCH (21:29)
[2024-01-16] MEDS: GLIMEPIRIDE 2 MG TAB PO SCH (21:29)
[2024-01-16] MEDS: ATORVASTATIN 20 MG TAB PO SCH (21:29)
[2024-01-16] MEDS: GABAPENTIN 400 MG CAP PO SCH (21:29)
[2024-01-16] MEDS: traZODone HCL 100 MG TAB PO SCH (21:29)
[2024-01-16] MEDS: HEPARIN SODIUM,PORCINE 5,000 UNIT/ML 1 ML VIAL SQ SCH (21:30)
[2024-01-16] MEDS: LUMATEPERONE TOSYLATE PO SCH (21:35)
[2024-01-17] MEDS: IPRATROPIUM 0.5 MG/2.5 ML NEBU INHALATION SCH (07:43)
[2024-01-17] MEDS: SYMBICORT 160-4.5 MCG INHALER INHALATION SCH (07:43)
[2024-01-17] MEDS ORDERED: NON FORMULARY DRUG (Fluticasone/Umeclidin/Vilanter [Trelegy Ellipta 200-62.5-25] 1 EACH Bl INHALATION SCH (08:00)
[2024-01-17 10:55] LABS: HGB 10.8 g/dL (12.0-15.0); MCH 27.8 pg (27.0-32.0); MCHC 31.8 g/dL (32.0-37.0); MCV 87.6 FL (80.0-97.0); Mean Platelet Volume 10.1 FL (9.5-12.2); NRBC Per 100 WBC 0 X 10*3/uL (0.00-0.01); Platelet Count 371 X 10*3/uL (140-440); RBC 3.88 X 10*6/uL (4.10-5.20); RDW 14.2 % (11.5-14.5); WBC 16.89 X 10*3/uL (4.50-10.00)
[2024-01-17 11:39] LABS: BUN/Creat Ratio 15.25 Ratio (12.00-20.00); Blood Urea Nitrogen 6.1 mg/dL (9.0-27.0); Calcium 8.8 mg/dL (8.7-10.3); Chloride 102 mmol/L (96-109); Glucose 137 mg/dL (70-110); Potassium 3.9 mmol/L (3.5-5.5); Sodium 140 mmol/L (135-145)
[2024-01-17 12:18] LABS: Basophils # (M) 0 X 10*3/uL (0.00-0.10); Eosinophils # (M) 0.34 X 10*3/uL (0.04-0.35); Lymphocytes # (M) 4.39 X 10*3/uL (0.90-5.00); Monocytes # (M) 0.68 X 10*3/uL (0.20-1.00); Neutrophils # (M) 11.49 X 10*3/uL (1.80-7.70); Neutrophils % (M) 68 %; RBC Morphology Normal (Normal)
[2024-01-17] MEDS: KETOROLAC 15 MG/ML 1 ML VIAL IVP PRN (14:13)
[2024-01-17] MEDS: IV FLUID CONTINUATION 1,000 ML IV ONE (16:04)
[2024-01-17] MEDS: MIDAZOLAM 2 MG/2 ML VIAL IV ONE (16:17)
[2024-01-17] MEDS: DEXAMETHASONE SOD PHOSPHATE 4 MG/ML 1 ML VIAL IVP STA (16:18)
[2024-01-17 16:28] LABS: Glucose,Whole Blood 147 mg/dL (70-110)
[2024-01-17] MEDS ORDERED: MIDAZOLAM 2 MG/2 ML VIAL ONE (17:55)
[2024-01-17] MEDS ORDERED: PROPOFOL 10 MG/ML 20 ML VIAL IV ONE (17:55)
[2024-01-17] MEDS ORDERED: GLYCOPYRROLATE 0.2 MG/ML 2 ML VIAL ONE (17:55)
[2024-01-17] MEDS ORDERED: SUCCINYLCHOLINE CHLORIDE 200 MG/10 ML VIAL IV ONE (17:55)
[2024-01-17] MEDS ORDERED: NEOSTIGMINE 1 MG/ML 10 ML VIAL ONE (17:55)
[2024-01-17] MEDS ORDERED: fentaNYL (PF) 50 MCG/ML 2 ML AMP ONE (17:55)
[2024-01-17] MEDS ORDERED: ROCURONIUM 10 MG/ML (5 ML VIAL) IV ONE (17:55)
[2024-01-17] MEDS: SODIUM CHLORIDE 0.9% 100 ML with ceFAZolin 2,000 MG IV ONE (17:57)
--- NOTE | 2024-01-17 18:04 | P.GSCN ---
History of Present Illness Consult date: 01/17/24 Reason for Consult: Left renal stone History of present illness: This is a 38-year-old female with history of gastroparesis with chronic nausea and vomiting that presents with a new onset left-sided flank pain associated with hematuria. Indicated the pain is started suddenly along the left flank. Denies any previous similar symptoms in the past. She does have a history of chronic nausea and vomiting secondary to her gastroparesis. Denies any dysuria, urgency or frequency of urination. Denies any fevers or chills. In the ER she underwent a renal bladder ultrasound that showed evidence of a 1 cm left-sided renal pelvic stone with hydronephrosis. Of note she did have a CT done in December of this year which showed this 8 mm stone along the left lower pole of the kidney. On evaluation this morning she continues to have left flank pain. Review of Systems - Constitutional Denies fever, Denies weight loss - Cardiovascular Denies chest pain, Denies shortness of breath - Respiratory Denies cough, Denies 7 - Gastrointestinal Reports abdominal pain, Reports nausea, Reports vomiting - Genitourinary Genitourinary: Reports flank pain, Reports kidney stones Past Medical History Past Medical History: Asthma, Diabetes Mellitus, GERD/Reflux, Hyperlipidemia, Musculoskeletal Disorder, Osteoarthritis (OA) Additional Past Medical History / Comment(s): IBS, colitis, frequent migraines, PSEUDOTUMOR ON BRAIN, disc problems in lower back. History of Any Multi-Drug Resistant Organisms: None Reported, MRSA Year Discovered:: 2020 MDRO Source:: labia Past Surgical History: Cholecystectomy, Orthopedic Surgery Additional Past Surgical History / Comment(s): ORIF RIGHT HAND, MIRENA IN SERTION, pain procedures.COLONOSCOPY/EGD Past Anesthesia/Blood Transfusion Reactions: No Reported Reaction Past Psychological History: Anxiety, Depression, Schizoaffective Disorder Additional Psychological History / Comment(s): States her Schizoaffective Disorder is under control with her medication. Smoking Status: Current some day smoker Past Alcohol Use History: None Reported Additional Past Alcohol Use History / Comment(s): HAS SMOKED 1 PPD SINCE AGE 14. Past Drug Use History: Marijuana Additional Drug Use History / Comment(s): Marijuana use daily. - Past Family History Mother Family Medical History: Unable to Obtain Additional Family Medical History / Comment(s): Patient states does not any history of her family. Medications and Allergies Home Medications Medication Instructions Recorded Confirmed Type Gabapentin 800 mg PO TID 10/02/22 01/16/24 History oxyCODONE-APAP 10-325MG [Percocet 1 tab PO TID 10/02/22 01/16/24 History 10-325 mg] Atorvastatin [Lipitor] 20 mg PO HS 14 Days #14 tab 02/09/23 01/16/24 Rx traZODone HCL 300 mg PO HS 14 Days #14 tab 02/09/23 01/16/24 Rx Albuterol Sulfate [Albuterol 1 - 2 puff INHALATION RT-Q6H PRN 09/30/23 01/16/24 History Sulfate Hfa] Cetirizine HCl 10 mg PO HS 09/30/23 01/16/24 History DULoxetine HCL [Cymbalta] 30 mg PO HS 09/30/23 01/16/24 History Diphenox-Atrop 2.5-0.025 mg 1 tab PO HS 09/30/23 01/16/24 History [Lomotil] Fluticasone/Umeclidin/Vilanter 1 puff INHALATION RT-DAILY 09/30/23 01/16/24 History [Trelegy Ellipta 200-62.5-25] Glimepiride 2 mg PO HS 09/30/23 01/16/24 History Lumateperone Tosylate [Caplyta] 10.5 mg PO HS 09/30/23 01/16/24 History Metoclopramide HCl [Reglan] 10 mg PO HS 09/30/23 01/16/24 History Omeprazole 40 mg PO HS 09/30/23 01/16/24 History haloperidoL 10 mg PO HS 09/30/23 01/16/24 History metFORMIN HCL [Glucophage] 500 mg PO HS 09/30/23 01/16/24 History EPINEPHrine (Auto Inject) [Epipen] 0.3 mg IM ONCE PRN 11/05/23 01/16/24 History Ibuprofen [Motrin] 800 mg PO TID 11/05/23 01/16/24 History Ondansetron Odt [Zofran ODT] 8 mg PO BID PRN 11/05/23 01/16/24 History Ubrogepant [Ubrelvy] 50 mg PO DAILY PRN 11/05/23 01/16/24 History Allergies Allergy/AdvReac Type Severity Reaction Status Date / Time Iodinated Contrast Media Allergy Anaphylaxis Verified 01/16/24 11:56 [Iodinated Contrast Media - Oral and] latex Allergy Rash/Hives Verified 01/16/24 11:56 shellfish derived [Shellfish] Allergy Anaphylaxis Verified 01/16/24 11:56 dulaglutide [From Trulicity] AdvReac Nausea & Verified 01/16/24 11:56 Vomiting mirtazapine [From Remeron] AdvReac Hallucinati Verified 01/16/24 11:56 ons semaglutide [From Ozempic] AdvReac Nausea & Verified 01/16/24 11:56 Vomiting Surgical - Exam Vital Signs Temp Pulse Resp BP Pulse Ox 97.5 F L 89 20 70/39 96 01/16/24 06:53 01/16/24 06:53 01/16/24 06:53 01/16/24 06:53 01/16/24 06:53 - General no distress, moderate pain - Eyes normal ocular movement, no pale - ENT normal nares, normal mucosa - Respiratory normal expansion, normal respiratory effort - Abdomen Abdomen: soft, tender (Left flank), no distended - Psychiatric oriented to time, oriented to person, oriented to place Results - Labs 01/17/24 06:14 01/17/24 06:14 Abnormal Lab Results - Last 24 Hours (Table) 01/17/24 01/17/24 01/17/24 Range/Units 06:14 06:14 16:11 WBC 16.89 H (4.50-10.00) X 10*3/uL RBC 3.88 L (4.10-5.20) X 10*6/uL Hgb 10.8 L (12.0-15.0) g/dL Hct 34.0 L (37.2-46.3) % MCHC 31.8 L (32.0-37.0) g/dL Neutrophils # (Manual) 11.49 H (1.80-7.70) X 10*3/uL Anion Gap 13.00 H (4.00-12.00) mmol/L BUN 6.1 L (9.0-27.0) mg/dL Creatinine 0.4 L (0.6-1.5) mg/dL Glucose 137 H (70-110) mg/dL POC Glucose (mg/dL) 147 H (70-110) mg/dL Diabetes panel 01/17/24 Range/Units 06:14 Sodium 140 (135-145) mmol/L Potassium 3.9 (3.5-5.5) mmol/L Chloride 102 (96-109) mmol/L Carbon Dioxide 25.0 (21.6-31.8) mmol/L BUN 6.1 L (9.0-27.0) mg/dL Creatinine 0.4 L (0.6-1.5) mg/dL Glucose 137 H (70-110) mg/dL Calcium 8.8 (8.7-10.3) mg/dL Calcium panel 01/17/24 Range/Units 06:14 Calcium 8.8 (8.7-10.3) mg/dL Pituitary panel 01/17/24 Range/Units 06:14 Sodium 140 (135-145) mmol/L Potassium 3.9 (3.5-5.5) mmol/L Chloride 102 (96-109) mmol/L Carbon Dioxide 25.0 (21.6-31.8) mmol/L BUN 6.1 L (9.0-27.0) mg/dL Creatinine 0.4 L (0.6-1.5) mg/dL Glucose 137 H (70-110) mg/dL Calcium 8.8 (8.7-10.3) mg/dL Adrenal panel 01/17/24 Range/Units 06:14 Sodium 140 (135-145) mmol/L Potassium 3.9 (3.5-5.5) mmol/L Chloride 102 (96-109) mmol/L Carbon Dioxide 25.0 (21.6-31.8) mmol/L BUN 6.1 L (9.0-27.0) mg/dL Creatinine 0.4 L (0.6-1.5) mg/dL Glucose 137 H (70-110) mg/dL Calcium 8.8 (8.7-10.3) mg/dL Assessment and Plan Assessment: 38-year-old female with history of a 1 cm left-sided renal pelvic stone, previously in the lower pole. She is symptomatic from her stone. Discussed given the symptoms the option of left-sided ureteroscopy with holmium laser. Aware the risk which includes but not limited to bleeding, infection, injury to the ureter -OR for left-sided ureteroscopy, holmium laser lithotripsy, stone basketing and stent insertion
--- NOTE | 2024-01-17 18:50 | P.OP ---
Date of Procedure: 01/17/24 Preoperative Diagnosis: Left renal stone Postoperative Diagnosis: Same Procedure(s) Performed: Cystoscopy, left ureteroscopy, holmium laser lithotripsy, stone basketing and stent insertion Implants: 6 Congolese by 24 cm stent in the left ureter Anesthesia: ADILSON Surgeon: Frantz Hager Estimated Blood Loss (ml): 5 Pathology: other (left renal stone) Condition: stable Disposition: PACU Indications for Procedure: This is a 38-year-old female with history of a 1 cm left-sided renal pelvic stone, causing hydronephrosis and pain. Option of left-sided ureteroscopy with holmium laser was discussed, aware the risk which includes but not limited to bleeding, infection, injury to the ureter. Of note he does have history of chronic of nausea and vomiting. Did discuss with her that this will not address that but the purpose of removing the stone is to address her pain and the hydronephrosis. She understood all the risk and agreed to proceed Operative Findings: Large left-sided renal pelvic stone Description of Procedure: Patient brought the operating room, general anesthesia was induced. She was prepped and draped in sterile fashion and placed in dorsolithotomy position. Cystoscopy through the 21 Cong[place]ese sheath was inserted per urethra, cystoscopy was performed showed no abnormality within the bladder. Attention was then carried to the left ureteral orifice which was intubated with a sensor wire. The wire was advanced under fluoroscopy into the renal pelvis. Next an 1113 [place] access sheath was passed over the wire and into the proximal ureter. Next a flexible ureteroscope was inserted through the access sheath, renoscopy was performed showed a large stone in the renal pelvis. Using the holmium laser the stone was dusted, any sizable stone fragments were removed using the stone basket. Repeat renoscopy showed no sizable stones or injury to the kidney. On fluoroscopy there is no radiopaque density seen. Pullback ureteroscopy was performed which showed no injury to the ureter or any ureteral stones, as ureteroscope was withdrawn the stent so wire was advanced through. Next a ureteral stent was passed over the wire, the proximal curl was visualized on fluoroscopy and the distal curl was visualized using the cystoscope. The bladder was emptied at the end of the case. Patient tolerated procedure was taken to recovery in stable condition
[2024-01-17] MEDS: HYDROmorphone 0.5 MG/0.5 ML SYRINGE IVP STA (19:06)
--- NOTE | 2024-01-17 19:24 | FL ---
EXAMINATION TYPE: FL guidance operating room DATE OF EXAM: 01/17/2024 Comparison: None Clinical History: 38-year-old female Left side cysto with stent insertion Findings: left side cysto with stent insertion with Dr. Hager. FL time 13.7sec DAP 1.9207 Gycm2 3 images submitted.
[2024-01-17] MEDS: HYDROmorphone 0.5 MG/0.5 ML SYRINGE IM STA (21:14)
--- NOTE | 2024-01-17 23:22 | HP ---
HISTORY AND PHYSICAL CHIEF COMPLAINT: Intractable nausea and vomiting, possibly related to either gastroparesis or hyperemesis, THC. HISTORY OF PRESENT ILLNESS: This lady presented to the emergency room with intractable nausea and vomiting. She is also found to have a stone in the left renal pelvis and was complaining of left flank pain. REVIEW OF SYSTEMS: She denies fever, chills, hematuria, dysuria, etc. Past medical history, family history, and personal and social histories are unremarkable otherwise. She was just in the hospital recently. This was for GI issues as well. PHYSICAL EXAMINATION: VITAL SIGNS: Normal. She is afebrile. HEAD, EARS, EYES, NOSE, MOUTH AND THROAT: Normal. Mucous membranes were slightly dry. CHEST: Clear. CARDIAC: Normal. ABDOMEN: Protuberant, soft and nontender. She was slightly tender in the left flank. EXTREMITIES: Normal. IMPRESSION: 1. Intractable nausea and vomiting. 2. Hyperemesis, THC. 3. Left flank pain. 4. Left renal pelvic stone. PLAN: 1. Bed rest. 2. IV fluids. 3. Antiemetics. 4. Urology consult. MMODL / IJN: [id number] /
--- NOTE | 2024-01-18 03:01 | PN ---
PROGRESS NOTE CHIEF COMPLAINT: Intractable nausea and vomiting. HISTORY OF PRESENT ILLNESS: This lady is being evaluated by Urology. It was reported that she had a stone in the distal left ureter, but now looks like it is in the renal pelvis. Nonetheless, urology is planning a cystoscopy. Nausea and vomiting are gone. PHYSICAL EXAMINATION: CHEST: Clear. CARDIAC: Normal. ABDOMEN: Soft and protuberant. IMPRESSION: 1. Intractable nausea and vomiting, probably due to hyperemesis, THC. 2. Stone in the left renal pelvis. PLAN: Await further recommendations from Urology. MMODL / IJN: [id number] /
[2024-01-18 07:37] VITALS: BP 144/89; RESP 16; TEMP 97.7
[2024-01-18 07:43] VITALS: PULSE 80
--- NOTE | 2024-01-18 10:08 | P.PN ---
Subjective Progress Note Date: 01/18/24 Principal diagnosis: Left renal calculus The patient underwent left ureteroscopy with laser lithotripsy of her left renal calculus. A ureteral stent was placed. She feels much better today. Her only complaint is increased urinary frequency. Objective - Vital Signs Vital signs: Vital Signs Temp 98.3 F 01/18/24 01:57 Pulse 82 01/18/24 01:57 Resp 15 01/18/24 01:57 BP 142/94 01/18/24 01:57 Pulse Ox 97 01/18/24 01:57 FiO2 Intake & Output 01/17/24 01/18/24 01/18/24 18:59 06:59 18:59 Intake Total 600 Output Total 5 Balance 595 Intake: IV 600 Output: Estimated Blood Loss 5 Other: Voiding Method Toilet # Voids 2 2 - Constitutional General appearance: Present: average body habitus, no acute distress - Psychiatric Psychiatric: Present: A&O x's 3 - Labs CBC & Chem 7: 01/17/24 06:14 01/17/24 06:14 Labs: Abnormal Lab Results - Last 24 Hours (Table) 01/17/24 01/17/24 01/17/24 Range/Units 06:14 06:14 16:11 WBC 16.89 H (4.50-10.00) X 10*3/uL RBC 3.88 L (4.10-5.20) X 10*6/uL Hgb 10.8 L (12.0-15.0) g/dL Hct 34.0 L (37.2-46.3) % MCHC 31.8 L (32.0-37.0) g/dL Neutrophils # (Manual) 11.49 H (1.80-7.70) X 10*3/uL Anion Gap 13.00 H (4.00-12.00) mmol/L BUN 6.1 L (9.0-27.0) mg/dL Creatinine 0.4 L (0.6-1.5) mg/dL Glucose 137 H (70-110) mg/dL POC Glucose (mg/dL) 147 H (70-110) mg/dL Assessment and Plan (1) Kidney stone Current Visit: Yes Status: Acute Code(s): N20.0 - CALCULUS OF KIDNEY SNOMED Code(s): 74642317 Plan: I reassured the patient that urinary frequency is common in patients with ureteral stents, and that this will resolve once the stent is removed. I also explained to her that she may experience some left-sided discomfort and hematuria as a result of the stent. She indicates that she is overall very comfortable and wishes to be discharged home. She will follow-up with Dr. Hager in 1 week for office cystoscopy with stent removal.
--- NOTE | 2024-01-23 23:55 | DS ---
DISCHARGE SUMMARY CHIEF COMPLAINT: Intractable nausea and vomiting. HISTORY OF PRESENT ILLNESS AND PHYSICAL EXAM: Details of this lady's history and physical can be found in the initial workup. LABORATORY STUDIES: While she was in the hospital, she had laboratory studies, details of which can be found in the laboratory section of her chart. COURSE IN THE HOSPITAL: She was started on intravenous fluids and antiemetics. Nausea slowly cleared and she continued to improve. She was doing well enough. It was felt that she could be discharged on the and she will go home on her usual activity, diet, and medication. FINAL DIAGNOSES: 1. Intractable nausea and vomiting. 2. Hyperemesis, possibly related to marijuana use. OPERATIONS: None. CONSULTATIONS: None. She is improved. MMODL / IJN: [id number] /
== END 2024-01-18 12:12 | disposition home or self-care (01) ==
LOC: EC 06:51 → 6NMEDSUR 11:56
PROVIDERS: ADMIT Family Medicine; ATTEND Family Medicine
DX: N13.2 Hydronephrosis with renal and ureteral calculous obstruction (principal); E11.43 Type 2 diabetes mellitus with diabetic autonomic (poly)neuropathy; K31.84 Gastroparesis; F12.10 Cannabis abuse, uncomplicated; F17.210 Nicotine dependence, cigarettes, uncomplicated; Z79.84 Long term (current) use of oral hypoglycemic drugs; Z79.51 Long term (current) use of inhaled steroids; Z79.891 Long term (current) use of opiate analgesic; Z79.1 Long term (current) use of non-steroidal anti-inflammatories (NSAID); Z79.899 Other long term (current) drug therapy; Z91.041 Radiographic dye allergy status; Z91.040 Latex allergy status; Z91.013 Allergy to seafood; Z88.8 Allergy status to other drugs, medicaments and biological substances
CPT/HCPCS: 52356; 96376 ×3; 96361; 96372 ×2; 96375 ×2; 96374; 99285; 36415; 94640 ×2; 93005; 80053; 80048; 82150; 83690; 85025 ×2; 81001; 81025; 80306; 82365; 76770; G0378 ×3; C2625; C1769 ×2; J2250; J0330; J2060; J1644 ×2; J1100; J2710; J2765; J2405 ×2; J0690; J3010; J1885 ×3; J2704; J1170; J1790; J1596; J2470 ×3

== ENCOUNTER 2024-04-26 05:33 | Emergency (ER) | payer MEDICARE, OTHER ==
--- NOTE | 2024-04-26 06:01 | ED ---
General Adult HPI - General Source: patient, RN notes reviewed, old records reviewed Mode of arrival: ambulatory <Thomas Limon - Last Filed: 04/26/24 06:46> <Toy Tran - Last Filed: 04/26/24 08:45> - General Chief complaint: Abdominal Pain Stated complaint: Vomiting, Abdominal pain, Back Pain Time Seen by Provider: 04/26/24 05:49 - History of Present Illness Initial comments: Is a 38-year-old female presents emergency department complaining of right flank pain. Is been present for approximately 4 days but is now having nausea and vomiting since last night. Denies any chest pain or shortness of breath. Denies any fevers, chills, cough. Does have a past medical history remarkable for diabetes, hyperlipidemia, IBS. States she has had kidney stones in the past and this is what it feels like. Denies any diarrhea or constipation. States there is no way she is . She has an IUD and does not participate in sexual intercourse. Denies any sore throat. Denies headaches. Has no other acute complaints at this time. Presents over concern for kidney stone. Denies any vaginal discharge or bleeding. (Thomas Limon) - Related Data Home Medications Medication Instructions Recorded Confirmed Gabapentin 800 mg PO TID 10/02/22 01/16/24 oxyCODONE-APAP 10-325MG [Percocet 1 tab PO TID 10/02/22 01/16/24 10-325 mg] Albuterol Sulfate [Albuterol 1 - 2 puff INHALATION RT-Q6H PRN 09/30/23 01/16/24 Sulfate Hfa] Cetirizine HCl 10 mg PO HS 09/30/23 01/16/24 DULoxetine HCL [Cymbalta] 30 mg PO HS 09/30/23 01/16/24 Diphenox-Atrop 2.5-0.025 mg 1 tab PO HS 09/30/23 01/16/24 [Lomotil] Fluticasone/Umeclidin/Vilanter 1 puff INHALATION RT-DAILY 09/30/23 01/16/24 [Trelegy Ellipta 200-62.5-25] Glimepiride 2 mg PO HS 09/30/23 01/16/24 Lumateperone Tosylate [Caplyta] 10.5 mg PO HS 09/30/23 01/16/24 Metoclopramide HCl [Reglan] 10 mg PO HS 09/30/23 01/16/24 Omeprazole 40 mg PO HS 09/30/23 01/16/24 haloperidoL 10 mg PO HS 09/30/23 01/16/24 metFORMIN HCL [Glucophage] 500 mg PO HS 09/30/23 01/16/24 EPINEPHrine (Auto Inject) [Epipen] 0.3 mg IM ONCE PRN 11/05/23 01/16/24 Ibuprofen [Motrin] 800 mg PO TID 11/05/23 01/16/24 Ondansetron Odt [Zofran ODT] 8 mg PO BID PRN 11/05/23 01/16/24 Ubrogepant [Ubrelvy] 50 mg PO DAILY PRN 11/05/23 01/16/24 Previous Rx's Medication Instructions Recorded Atorvastatin [Lipitor] 20 mg PO HS 14 Days #14 tab 02/09/23 traZODone HCL 300 mg PO HS 14 Days #14 tab 02/09/23 HYDROcodone/APAP 5-325MG [[place] 1 tab PO Q6HR PRN 3 Days #12 tab 04/26/24 5-325] Ondansetron Odt [Zofran Odt] 4 mg PO Q8HR PRN #12 tab 04/26/24 Allergies Allergy/AdvReac Type Severity Reaction Status Date / Time Iodinated Contrast Media Allergy Anaphylaxis Verified 04/26/24 05:45 [Iodinated Contrast Media - Oral and] latex Allergy Rash/Hives Verified 04/26/24 05:45 shellfish derived [Shellfish] Allergy Anaphylaxis Verified 04/26/24 05:45 dulaglutide [From Trulicity] AdvReac Nausea & Verified 04/26/24 05:45 Vomiting mirtazapine [From Remeron] AdvReac Hallucinati Verified 04/26/24 05:45 ons semaglutide [From Ozempic] AdvReac Nausea & Verified 04/26/24 05:45 Vomiting Review of Systems ROS Other: All systems not noted in ROS Statement are negative. <Thomas Limon - Last Filed: 04/26/24 06:46> ROS Other: All systems not noted in ROS Statement are negative. <Toy Tran - Last Filed: 04/26/24 08:45> ROS Statement: Those systems with pertinent positive or pertinent negative responses have been documented in the HPI. Review of Systems: CONST: Denies fever EYES: Denies blurry vision ENT: Denies nasal congestion C/V: Denies Chest pain RESP: Denies shortness of breath GI: Endorses abdominal pain : Denies dysuria SKIN: Denies rash. MSK: Denies joint pain. NEURO: Denies headache (Thomas Limon) Past Medical History Past Medical History: Asthma, Diabetes Mellitus, GERD/Reflux, Hyperlipidemia, Musculoskeletal Disorder, Osteoarthritis (OA) Additional Past Medical History / Comment(s): IBS, colitis, frequent migraines, PSEUDOTUMOR ON BRAIN, disc problems in lower back. History of Any Multi-Drug Resistant Organisms: None Reported, MRSA Date of last positivie culture/infection: 2020 MDRO Source:: labia Past Surgical History: Cholecystectomy, Orthopedic Surgery Additional Past Surgical History / Comment(s): ORIF RIGHT HAND, MIRENA INSERTION, pain procedures.COLONOSCOPY/EGD Past Anesthesia/Blood Transfusion Reactions: No Reported Reaction Past Psychological History: Anxiety, Depression, Schizoaffective Disorder Smoking Status: Current some day smoker Past Alcohol Use History: None Reported Past Drug Use History: Marijuana - Past Family History Mother Family Medical History: Unable to Obtain Additional Family Medical History / Comment(s): Patient states does not any history of her family. <Norman Limonrey - Last Filed: 04/26/24 06:46> General Exam <Norman Limonrey - Last Filed: 04/26/24 06:46> - General Exam Comments Initial Comments: General: Appears in mild to moderate distress secondary to abdominal pain HEAD: Normal with no signs of head trauma. EYES: PERRLA, EOMI, conjunctiva normal, no discharge. ENT: Hearing grossly intact, normal oropharynx. RESPIRATORY: Clear breath sounds bilaterally. No wheezes, rales, or rhonchi. C/V: Regular rate and rhythm. S1 and S2 auscultated, no edema, peripheral pulses 2+ and intact throughout ABD: Abdomen soft, nondistended. Tender to palpation in the suprapubic region as well as of the right flank. No guarding or rebound tenderness. No peritoneal signs. EXT: Normal range of motion, no obvious deformity SKIN: No rashes or lesions observed on exposed skin. NEURO: Alert and oriented x 4. (Thomas Limon) Course Vital Signs 04/26/24 04/26/24 05:43 07:46 Temperature 97.5 F L 98.1 F Pulse Rate 67 70 Respiratory 20 18 Rate Blood Pressure 173/92 150/85 O2 Sat by Pulse 96 Oximetry Medical Decision Making <BraxtonThomas - Last Filed: 04/26/24 06:46> - Lab Data Result diagrams: 04/26/24 06:35 04/26/24 06:35 <Toy Tran - Last Filed: 04/26/24 08:45> - Medical Decision Making Was pt. sent in by a medical professional or institution (, PA, [employer], urgent ca re, hospital, or fdc...) When possible be specific @ -No Did you speak to anyone other than the patient for history (EMS, parent, family, police, friend...)? What history was obtained from this source @ -No Did you review nursing and triage notes (agree or disagree)? Why? @ -I reviewed and agree with nursing and triage notes Were old charts reviewed (outside hosp., previous admission, EMS record, old EKG, old radiological studies, urgent care reports/EKG's, fdc records)? Report findings @ -No old charts were reviewed Differential Diagnosis (chest pain, altered mental status, abdominal pain women, abdominal pain men, vaginal bleeding, weakness, fever, dyspnea, syncope, headache, dizziness, GI bleed, back pain, seizure, CVA, palpatations, mental health, musculoskeletal)? @ -Differential Abdominal Pain Women: Appendicitis, Cholecystitis, diverticulosis, ischemic bowel, pancreatitis, hepatitis, UTI, gastroenteritis, AAA, incarcerated hernia, bowel obstruction, c onstipation, inflammatory bowel, hepatitis, peptic ulcer disease, splenic infarction, perforated viscus, vulvitis, ovarian torsion, PID, kidney stone, placenta abruption, this is not meant to be an all-inclusive list EKG interpreted by me (3pts min.). @ -None done X-rays interpreted by me (1pt min.). @ -None done CT interpreted by me (1pt min.). @ -Pending U/S interpreted by me (1pt. min.). @ -None done What testing was considered but not performed or refused? (CT, X-rays, U/S, labs)? Why? @ -None What meds were considered but not given or refused? Why? @ -None Did you discuss the management of the patient with other professionals (professionals i.e. , PA, [employer], lab, RT, psych nurse, psychosocial rehabilitation counselor, macaroni maker, teacher, textile technical officer, manager of case management)? Give summary @ -No Was smoking cessation discussed for >3mins.? @ -No Was critical care preformed (if so, how long)? @ -No Were there social determinants of health that impacted care today? How? (Homelessness, low income, unemployed, alcoholism, drug addiction, transportation, low edu. Level, literacy, decrease access to med. care, skilled nursing, rehab)? @ -No Was there de-escalation of care discussed even if they declined (Discuss DNR or withdrawal of care, Hospice)? DNR status @ -No What co-morbidities impacted this encounter? (DM, HTN, Smoking, COPD, CAD, Cancer, CVA, ARF, Chemo, Hep., AIDS, mental health diagnosis, sleep apnea, morbid obesity)? @ -None Was patient admitted / discharged? Hospital course, mention meds given and route, prescriptions, significant lab abnormalities, going to OR and other pertinent info. @ -Patient presents with right flank pain and abdominal pain. Similar to prior kidney stones. We will obtain abdominal labs, CT without contrast. She will be symptomatically treated with IV fluids, analgesia medications. Patient was in agreement this plan. Vital signs within acceptable limits. Patient states there is no way she is . Therefore we will defer test at this time after discussion with patient. Patient's care was signed out to [facility] emergency department physician Dr. Tran pending results of workup. Undiagnosed new problem with uncertain prognosis? @ -No Drug Therapy requiring intensive monitoring for toxicity (Heparin, Nitro, Insulin, Cardizem)? @ -No Were any procedures done? @ -No (Thomas Limon) Patient care signed out to me by previous shift physician, Dr. Limon. Plan at signout was to follow-up with pending CT and labs. Labs within acceptable limits. Urinalysis does not suggest infection. CT shows 2 mm distal ureteral stone with mild hydronephrosis. Patient reevaluated at 8:43 AM found to be stable to condition. Patient agreeable for discharge with prescription for symptom management. Advised follow-up with urologist. Diagnosis/symptom? @ -Nephrolithiasis Acute, or Chronic, or Acute on Chronic? @ -Acute Uncomplicated (without systemic symptoms) or Complicated (systemic symptoms)? @ -Complicated by hydronephrosis Side effects of treatment? @ -None Exacerbation, Progression, or Severe Exacerbation] @ -No Poses a threat to life or bodily function? @ -yes (Toy Tran) - Lab Data Lab Results 04/26/24 04/26/24 04/26/24 Range/Units 06:35 06:35 07:48 WBC 13.3 H (3.8-10.6) k/uL RBC 4.50 (3.80-5.40) m/uL Hgb 12.7 (11.4-16.0) gm/dL Hct 37.6 (34.0-46.0) % MCV 83.4 (80.0-100.0) fL MCH 28.1 (25.0-35.0) pg MCHC 33.7 (31.0-37.0) g/dL RDW 14.5 (11.5-15.5) % Plt Count 425 (150-450) k/uL MPV 7.0 Neutrophils % 74 % Lymphocytes % 19 % Monocytes % 5 % Eosinophils % 2 % Basophils % 0 % Neutrophils # 9.8 H (1.3-7.7) k/uL Lymphocytes # 2.5 (1.0-4.8) k/uL Monocytes # 0.6 (0-1.0) k/uL Eosinophils # 0.2 (0-0.7) k/uL Basophils # 0.0 (0-0.2) k/uL Sodium 139 (137-145) mmol/L Potassium 3.6 (3.5-5.1) mmol/L Chloride 102 (98-107) mmol/L Carbon Dioxide 27 (22-30) mmol/L Anion Gap 10 mmol/L BUN 6 L (7-17) mg/dL Creatinine 0.43 L (0.52-1.04) mg/dL Est GFR (CKD-EPI)AfAm >90 (>60 ml/min/1.73 sqM) Est GFR (CKD-EPI)NonAf >90 (>60 ml/min/1.73 sqM) Glucose 182 H (74-99) mg/dL Calcium 9.1 (8.4-10.2) mg/dL Total Bilirubin 0.4 (0.2-1.3) mg/dL AST 33 (14-36) U/L ALT 31 (4-34) U/L Alkaline Phosphatase 95 (38-126) U/L Total Protein 6.9 (6.3-8.2) g/dL Albumin 4.1 (3.5-5.0) g/dL Lipase 17 L (23-300) U/L Urine Color Colorless Urine Appearance Clear (Clear) Urine pH 6.5 (5.0-8.0) Ur Specific [place] 1.010 (1.001-1.035) Urine Protein Negative (Negative) Urine Glucose (UA) Negative (Negative) Urine Ketones Negative (Negative) Urine Blood Large H (Negative) Urine Nitrite Negative (Negative) Urine Bilirubin Negative (Negative) Urine Urobilinogen <2.0 (<2.0) mg/dL Ur Leukocyte Esterase Negative (Negative) Urine RBC >182 H (0-5) /hpf Urine WBC 2 (0-5) /hpf Ur Squamous Epith Cells 2 (0-4) /hpf Urine Bacteria Rare H (None) /hpf Urine Mucus Occasional H (None) /hpf Disposition <Thomas Limon - Last Filed: 04/26/24 06:46> Is patient prescribed a controlled substance at d/c from ED?: Yes Time of Disposition: 08:45 <Toy Tran - Last Filed: 04/26/24 08:45> Clinical Impression: Kidney stone Disposition: HOME SELF-CARE Condition: Fair Instructions (If sedation given, give patient instructions): Kidney Stones (ED) Prescriptions: HYDROcodone/APAP 5-325MG [[place] 5-325] 1 tab PO Q6HR PRN 3 Days #12 tab PRN Reason: Severe Pain Ondansetron Odt [Zofran Odt] 4 mg PO Q8HR PRN #12 tab PRN Reason: Nausea Referrals: Reggie Denny MD [Primary Care Provider] - 1-2 days Armando Hogan MD [STAFF PHYSICIAN] - 1-2 days
[2024-04-26] MEDS: SODIUM CHLORIDE 0.9% 1,000 ML IV STA (06:50)
[2024-04-26] MEDS: PANTOPRAZOLE 40 MG/10 ML VIAL IVP STA (06:53)
[2024-04-26] MEDS: ONDANSETRON 4 MG/2 ML VIAL IVP STA ×2 (06:53→07:59)
[2024-04-26] MEDS: MORPHINE SULFATE 4 MG/ML SYRINGE IVP STA (06:54)
[2024-04-26 06:55] LABS: Basophils % (A) 0 %; Eosinophils # (A) 0.2 k/uL (0-0.7); Eosinophils % (A) 2 %; HCT 37.6 % (34.0-46.0); HGB 12.7 gm/dL (11.4-16.0); Lymphocytes # (A) 2.5 k/uL (1.0-4.8); Lymphocytes % (A) 19 %; MCH 28.1 pg (25.0-35.0); MCHC 33.7 g/dL (31.0-37.0); MCV 83.4 fL (80.0-100.0); Monocytes # (A) 0.6 k/uL (0-1.0); Monocytes % (A) 5 %; Neutrophils # (A) 9.8 k/uL (1.3-7.7); Neutrophils % (A) 74 %; Platelet Count 425 k/uL (150-450); RDW 14.5 % (11.5-15.5); WBC 13.3 k/uL (3.8-10.6)
[2024-04-26 07:06] LABS: ALT 31 U/L (4-34); AST 33 U/L (14-36); African American GFR (CKD) >90 (>60 ml/min/1.73 sqM); Albumin 4.1 g/dL (3.5-5.0); Alkaline Phosphatase 95 U/L (38-126); Anion Gap 10 mmol/L; Blood Urea Nitrogen 6 mg/dL (7-17); Calcium 9.1 mg/dL (8.4-10.2); Carbon Dioxide 27 mmol/L (22-30); Chloride 102 mmol/L (98-107); Glucose 182 mg/dL (74-99); Lipase 17 U/L (23-300); Non-African American GFR(CKD) >90 (>60 ml/min/1.73 sqM); Potassium 3.6 mmol/L (3.5-5.1); Sodium 139 mmol/L (137-145); Total Bilirubin 0.4 mg/dL (0.2-1.3); Total Protein 6.9 g/dL (6.3-8.2)
--- NOTE | 2024-04-26 07:46 | CT ---
EXAMINATION TYPE: CT abdomen pelvis wo con DATE OF EXAM: 04/26/2024 COMPARISON: 12/14/2023 HISTORY: Right side flank pain, history of renal stones CT DLP: 1046.2 mGycm Examination of the solid and hollow viscera is limited given the lack of contrast. FINDINGS: LUNG BASES: No evidence for nodule. No evidence for infiltrate. LIVER/GB: The gallbladder surgically absent. No space-occupying hepatic lesion. Adequate steatosis wi th mild hepatomegaly. PANCREAS: No pancreatic mass identified. No inflammatory process seen. SPLEEN: No evidence for splenomegaly. No intrasplenic lesions seen. ADRENALS: No adrenal nodules identified. No evidence for thickening. KIDNEYS: No evidence for renal mass. There is a 2 mm distal right ureteral calculus resulting in mild right-sided hydronephrosis. There is an additional calculus noted within the right renal pelvis maite uring 2.5 mm. Mild right sided renal edema and perinephric stranding. 5 mm left sided renal calculus within the renal pelvis.. BOWEL: Appendix has a normal appearance. No evidence of bowel obstruction. No inflammatory process. Lymph nodes: No evidence for adenopathy greater than 1 cm. Abdominal aorta: Atheromatous changes seen. No evidence for aneurysm. Genital organs: No significant abnormality. Other: No significant abnormality. IMPRESSION: 1.There is a 2 mm distal right ureteral calculus resulting in mild right-sided hydronephrosis. There is an additional calculus noted within the right renal pelvis measuring 2.5 mm. [facility], , 04/26/2024 7:43 AM
[2024-04-26 07:47] VITALS: RESP 18
[2024-04-26 08:01] LABS: Appearance,Urine Clear (Clear); Bacteria,Urine Rare /hpf; Bilirubin,Urine Negative (Negative); Blood,Urine Large (Negative); Color,Urine Colorless; Glucose,Urine (UA) Negative (Negative); Ketones,Urine Negative (Negative); Leukocyte Esterase,Urine Negative (Negative); Mucus,Urine Occasional /hpf; Nitrite,Urine Negative (Negative); PH, Urine 6.5 (5.0-8.0); Protein,Urine Negative (Negative); RBC,Urine >182 /hpf (0-5); Squamous Epithelial Cell,Urine 2 /hpf (0-4); Urobilinogen,Urine <2.0 mg/dL (<2.0); WBC,Urine 2 /hpf (0-5)
[2024-04-26 08:59] VITALS: BP 152/86; PULSE 72; TEMP 97.9
== END 2024-04-26 08:59 | disposition home or self-care (01) ==
LOC: EC 05:33
CPT/HCPCS: 36415; 74176; 80053; 81001; 83690; 85025; 96361; 96374; 96375; 96376; 99284

== ENCOUNTER 2024-04-26 14:56 | Observation (INO) | payer MEDICARE, OTHER ==
[2024-04-26] MEDS: METOCLOPRAMIDE 5 MG/ML 2 ML VIAL IVP STA ×2 (16:28→17:35)
[2024-04-26] MEDS: SODIUM CHLORIDE 0.9% 1,000 ML IV STA (16:28)
[2024-04-26] MEDS: HYDROmorphone 0.5 MG/0.5 ML SYRINGE IVP STA ×3 (16:36→20:26)
[2024-04-26] MEDS: KETOROLAC 15 MG/ML 1 ML VIAL IVP STA ×3 (16:38→20:26)
--- NOTE | 2024-04-26 16:39 | ED ---
Nausea/Vomiting/Diarrhea HPI - General Source: patient, RN notes reviewed Mode of arrival: wheelchair Limitations: no limitations - History of Present Illness MD complaint: nausea, vomiting, abdominal pain Onset/Timin -: hour(s) Description of Vomiting: food contents, watery, bilious Associated Abdominal Pain: Yes Location: RLQ, flank Severity scale (1-10): 9 Quality: stabbing, sharp Consistency: constant Improves with: none Context: other (Diagnosed with obstructing nephrolithiasis yesterday (2 mm)) Associated Symptoms: nausea/vomiting <Gael Alexandre - Last Filed: 04/26/24 19:27> <Delia Zimmer - Last Filed: 04/27/24 23:10> - General Chief complaint: Nausea/Vomiting/Diarrhea Stated complaint: vomiting Time Seen by Provider: 04/26/24 15:12 - History of Present Illness Initial comments: This is a 38-year-old female presenting with nausea, vomiting and right lower abdominal pain x 1 day. Patient was discharged from this ER this morning following diagnosis of nephrolithiasis obstructing at ureterovesicular junction. Patient was prescribed Zofran and [place] p.o. but states she never went to the pharmacy to excelsior picker the medication. Patient states Zofran often does not work for her. Patient denies fever, chills, chest pain, dyspnea, dizziness, hematuria, dysuria. (Gael Alexandre) - Related Data Home Medications Medication Instructions Recorded Confirmed Gabapentin 800 mg PO TID 10/02/22 04/26/24 oxyCODONE-APAP 10-325MG [Percocet 1 tab PO TID 10/02/22 04/26/24 10-325 mg] Albuterol Sulfate [Albuterol 1 - 2 puff INHALATION RT-Q6H PRN 09/30/23 04/26/24 Sulfate Hfa] Cetirizine HCl 10 mg PO HS 09/30/23 04/26/24 DULoxetine HCL [Cymbalta] 30 mg PO HS 09/30/23 04/26/24 Diphenox-Atrop 2.5-0.025 mg 1 tab PO HS 09/30/23 04/26/24 [Lomotil] Fluticasone/Umeclidin/Vilanter 1 puff INHALATION RT-DAILY 09/30/23 04/26/24 [Trelegy Ellipta 200-62.5-25] Glimepiride 2 mg PO HS 09/30/23 04/26/24 Lumateperone Tosylate [Caplyta] 10.5 mg PO HS 09/30/23 04/26/24 Metoclopramide HCl [Reglan] 10 mg PO HS 09/30/23 04/26/24 Omeprazole 40 mg PO HS 09/30/23 04/26/24 haloperidoL 10 mg PO HS 09/30/23 04/26/24 metFORMIN HCL [Glucophage] 500 mg PO HS 09/30/23 04/26/24 EPINEPHrine (Auto Inject) [Epipen] 0.3 mg IM ONCE PRN 11/05/23 04/26/24 Ibuprofen [Motrin] 800 mg PO TID 11/05/23 04/26/24 Ondansetron Odt [Zofran ODT] 8 mg PO BID PRN 11/05/23 04/26/24 Ubrogepant [Ubrelvy] 50 mg PO DAILY PRN 11/05/23 04/26/24 Previous Rx's Medication Instructions Recorded Atorvastatin [Lipitor] 20 mg PO HS 14 Days #14 tab 02/09/23 HYDROcodone/APAP 5-325MG [[place] 1 tab PO Q6HR PRN 3 Days #12 tab 04/26/24 5-325] Ketorolac [Toradol] 10 mg PO Q6HR #30 tab 04/26/24 Metoclopramide [Reglan] 10 mg PO TID PRN #15 tab 04/26/24 Ondansetron Odt [Zofran Odt] 4 mg PO Q8HR PRN #12 tab 04/26/24 Tamsulosin [Flomax] 0.4 mg PO DAILY #10 cap 04/26/24 Allergies Allergy/AdvReac Type Severity Reaction Status Date / Time Iodinated Contrast Media Allergy Anaphylaxis Verified 04/26/24 20:00 [Iodinated Contrast Media - Oral and] latex Allergy Rash/Hives Verified 04/26/24 20:00 shellfish derived [Shellfish] Allergy Anaphylaxis Verified 04/26/24 20:00 dulaglutide [From Trulicity] AdvReac Nausea & Verified 04/26/24 20:00 Vomiting mirtazapine [From Remeron] AdvReac Hallucinati Verified 04/26/24 20:00 ons semaglutide [From Ozempic] AdvReac Nausea & Verified 04/26/24 20:00 Vomiting Review of Systems ROS Other: All systems not noted in ROS Statement are negative. <BettieGael - Last Filed: 04/26/24 19:27> ROS Other: All systems not noted in ROS Statement are negative. <LudwigskylerDelia Susie - Last Filed: 04/27/24 23:10> ROS Statement: Those systems with pertinent positive or pertinent negative responses have been documented in the HPI. 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 History of Any Multi-Drug Resistant Organisms: None Reported, MRSA Date of last positivie culture/infection: 2020 MDRO Source:: labia Past Surgical History: Cholecystectomy, Orthopedic Surgery Additional Past Surgical History / Comment(s): ORIF RIGHT HAND, MIRENA INSERTION, pain procedures.COLONOSCOPY/EGD Past Anesthesia/Blood Transfusion Reactions: No Reported Reaction Past Psychological History: Anxiety, Depression, Schizoaffective Disorder Smoking Status: Current some day smoker Past Alcohol Use History: None Reported Past Drug Use History: Marijuana - Past Family History Mother Family Medical History: Unable to Obtain Additional Family Medical History / Comment(s): Patient states does not any history of her family. <BettieGael - Last Filed: 04/26/24 19:27> General Exam Limitations: no limitations General appearance: alert, in no apparent distress Head exam: Present: atraumatic, normocephalic, normal inspection Eye exam: Present: normal appearance, PERRL, EOMI. Absent: scleral icterus, conjunctival injection, periorbital swelling ENT exam: Present: normal exam, mucous membranes moist Neck exam: Present: normal inspection. Absent: tenderness, meningismus, lymphadenopathy Respiratory exam: Present: normal lung sounds bilaterally. Absent: respiratory distress, wheezes, rales, rhonchi, stridor Cardiovascular Exam: Present: regular rate, normal rhythm, normal heart sounds. Absent: systolic murmur, diastolic murmur, rubs, gallop, clicks GI/Abdominal exam: Present: soft, tenderness (Positive right lower quadrant and right flank tenderness), normal bowel sounds. Absent: distended, guarding, rebound, rigid Extremities exam: Present: normal inspection, full ROM, normal capillary refill. Absent: tenderness, pedal edema, joint swelling, calf tenderness Back exam: Present: normal inspection Neurological exam: Present: alert, oriented X3, CN II-XII intact Psychiatric exam: Present: normal affect, normal mood Skin exam: Present: warm, dry, intact, normal color. Absent: rash <Gael Alexandre - Last Filed: 04/26/24 19:27> - General Exam Comments Initial Comments: Patient is repeatedly and violently vomiting. (Gael Alexandre) Course Vital Signs 04/26/24 04/26/24 04/26/24 14:58 16:00 16:42 Temperature 97.3 F L 98.4 F Pulse Rate 72 84 69 Pulse Rate [ Left] Respiratory 20 18 19 Rate Blood Pressure 149/106 188/124 146/85 Blood Pressure [Right Arm] O2 Sat by Pulse 97 97 95 Oximetry 04/26/24 04/26/24 04/26/24 19:00 21:45 22:13 Temperature 97.6 F Pulse Rate 57 L 60 Pulse Rate [ 63 Left] Respiratory 18 16 18 Rate Blood Pressure 168/103 123/70 Blood Pressure 172/75 [Right Arm] O2 Sat by Pulse 95 96 Oximetry Medical Decision Making <Gael Alexandre - Last Filed: 04/26/24 19:27> - Lab Data Result diagrams: 04/26/24 20:08 04/26/24 20:08 <Delia Zimmer - Last Filed: 04/27/24 23:10> - Medical Decision Making Was pt. sent in by a medical professional or institution (, [facility], SNOW REMOVER, urgent care, hospital, or group home...) When possible be specific @ -[No] Did you speak to anyone other than the patient for history (EMS, parent, family, police, friend...)? What history was obtained from this source @ -[No] Did you review nursing and triage notes (agree or disagree)? Why? @ -[I reviewed and agree with nursing and triage notes] Were old charts reviewed (outside hosp., previous admission, EMS record, old EKG, old radiological studies, urgent care reports/EKG's, group home records)? Report findings @ -Yes discharge from yesterday's ER visit discussed discovery of obstructing nephrolithiasis and medication management of patient's symptoms. Differential Diagnosis (chest pain, altered mental status, abdominal pain women, abdominal pain men, vaginal bleeding, weakness, fever, dyspnea, syncope, headache, dizziness, GI bleed, back pain, seizure, CVA, palpatations, mental health, musculoskeletal)? @ -Differential Abdominal Pain Women: Appendicitis, Cholecystitis, diverticulosis, ischemic bowel, pancreatitis, hepatitis, UTI, gastroenteritis, AAA, incarcerated hernia, bowel obstruction, constipation, inflammatory bowel, hepatitis, peptic ulcer disease, splenic infarction, perforated viscus, vulvitis, ovarian torsion, PID, kidney stone, placenta abruption, this is not meant to be an all-inclusive list EKG interpreted by me (3pts min.). @ -Twelve-lead performed following 2 doses of Reglan to ensure no significant QT prolongation Medicare. Twelve-lead shows sinus bradycardia without ST changes or T wave inversion. Ventricular rate 57 bpm, ERICA 141 ms, QRS duration 86 ms, QTc 393 ms. X-rays interpreted by me (1pt min.). @ -[None done] CT interpreted by me (1pt min.). @ -[None done] U/S interpreted by me (1pt. min.). @ -[None done] What testing was considered but not performed or refused? (CT, X-rays, U/S, labs)? Why? @ -[None] What meds were considered but not given or refused? Why? @ -[None] Did you discuss the management of the patient with other professionals (professionals i.e. , PA, SNOW REMOVER, lab, RT, psych nurse, social media content specialist, marble polisher hand, teacher, sba business development officer, showcase maker)? Give summary @ -He has spoke to Dr. Hogan from urology who advised patient be admitted under her PCP, Dr. Denny, due to his significant comorbidities. Spoke to Dr. Denny who agreed to admit under him. Was smoking cessation discussed for >3mins.? @ -[No] Was critical care preformed (if so, how long)? @ -[No] Were there social determinants of health that impacted care today? How? (Homelessness, low income, unemployed, alcoholism, drug addiction, transportation, low edu. Level, literacy, decrease access to med. care, fpc, rehab)? @ -[No] Was there de-escalation of care discussed even if they declined (Discuss DNR or withdrawal of care, Hospice)? DNR status @ -[No] What co-morbidities impacted this encounter? (DM, HTN, Smoking, COPD, CAD, Cancer, CVA, ARF, Chemo, Hep., AIDS, mental health diagnosis, sleep apnea, mo rbid obesity)? @ -Diabetes, morbid obesity Was patient admitted / discharged? Hospital course, mention meds given and route, prescriptions, significant lab abnormalities, going to OR and other pertinent info. @ -Admitted. Dilaudid, Toradol and Reglan given IV along with normal saline IV bolus. Patient states pain is controlled with Dilaudid and Toradol but violent vomiting persists. Attempted Compazine following twelve-lead. Contacted cr[facility] to consider admission due to intractable nausea/vomiting. Due to chronic comorbidities he advised admit via Dr. Denny. Spoke to Dr. Tasha lau who agreed to have patient admitted through him. Patient set up to be sent home with T3 and Zofran starter pack. Advised to excelsior picker remaining medication sent yesterday as well as tamsulosin, ketorolac and Reglan sent today. Undiagnosed new problem with uncertain prognosis? @ -[No] Drug Therapy requiring intensive monitoring for toxicity (Heparin, Nitro, Insulin, Cardizem)? @ -[No] Were any procedures done? @ -[No] Diagnosis/symptom? @ -Acute obstructing nephrolithiasis Acute, or Chronic, or Acute on Chronic? @ -Acute Uncomplicated (without systemic symptoms) or Complicated (systemic symptoms)? @ -Complicated due to obstruction Side effects of treatment? @ -[No] Exacerbation, Progression, or Severe Exacerbation? @ -Exacerbation Poses a threat to life or bodily function? How? (Chest pain, [place], [place], pneumonia, PE, COPD, DKA, ARF, appy, cholecystitis, CVA, Diverticulitis, Homicidal, [place] icidal, threat to staff... and all critical care pts) @ -[No] (Gael Alexandre) Disposition Is patient prescribed a controlled substance at d/c from ED?: No Time of Disposition: 18:56 Decision Date: 10/23/24 Decision Time: 19:27 <Gael Alexandre - Last Filed: 04/26/24 19:27> <Delia Zimmer - Last Filed: 04/27/24 23:10> Clinical Impression: Nephrolithiasis, Nausea and vomiting Disposition: ADMITTED IP TO THIS [facility] Condition: Good
[2024-04-26] MEDS: ONDANSETRON 4 MG/2 ML VIAL IVP STA (17:16)
[2024-04-26] MEDS: ONDANSETRON 4 MG ODT STARTER PACK 2 TAB BTL PO STA (17:41)
[2024-04-26] MEDS: ACET/COD 300 MG/30 MG STARTER PACK 6 TAB BTL PO STA (17:41)
[2024-04-26] MEDS: PROCHLORPERAZINE INJ 10 MG/2 ML VIAL IVP STA ×2 (19:02→19:41)
[2024-04-26] MEDS ORDERED: NALOXONE 0.4 MG/ML 1 ML VIAL IV PRN (19:21)
[2024-04-26] MEDS ORDERED: KETOROLAC 15 MG/ML 1 ML VIAL IVP PRN (19:21)
[2024-04-26] MEDS ORDERED: UBROGEPANT 50 MG PO PRN (19:24)
[2024-04-26] MEDS ORDERED: HYDROcodone/APAP 5-325MG 1 EACH TAB PO PRN (19:24)
[2024-04-26] MEDS ORDERED: ALBUTEROL HFA INHALER INHALATION PRN (19:24)
[2024-04-26] MEDS: SODIUM CHLORIDE 0.9% 1,000 ML IV SCH (20:27)
[2024-04-26] MEDS: ONDANSETRON 4 MG/2 ML VIAL IVP PRN (20:34)
[2024-04-26 20:35] LABS: AST 30 U/L (14-36); African American GFR (CKD) >90 (>60 ml/min/1.73 sqM); Albumin 4.3 g/dL (3.5-5.0); Alkaline Phosphatase 105 U/L (38-126); Anion Gap 13 mmol/L; Blood Urea Nitrogen 6 mg/dL (7-17); Calcium 9.6 mg/dL (8.4-10.2); Carbon Dioxide 25 mmol/L (22-30); Chloride 100 mmol/L (98-107); Glucose 180 mg/dL (74-99); Magnesium 1.5 mg/dL (1.6-2.3); Non-African American GFR(CKD) >90 (>60 ml/min/1.73 sqM); Potassium 3.9 mmol/L (3.5-5.1); Sodium 138 mmol/L (137-145); Total Bilirubin 0.4 mg/dL (0.2-1.3); Total Protein 7.2 g/dL (6.3-8.2)
[2024-04-26 20:46] LABS: ALT 39 U/L (4-34)
[2024-04-26 20:57] LABS: Basophils # (A) 0.1 k/uL (0-0.2); Basophils % (A) 0 %; Eosinophils # (A) 0.1 k/uL (0-0.7); Eosinophils % (A) 1 %; HCT 38.7 % (34.0-46.0); HGB 12.9 gm/dL (11.4-16.0); Lymphocytes # (A) 2.3 k/uL (1.0-4.8); Lymphocytes % (A) 10 %; MCH 27.7 pg (25.0-35.0); MCHC 33.3 g/dL (31.0-37.0); MCV 83.1 fL (80.0-100.0); Mean Platelet Volume 7.8; Monocytes # (A) 0.6 k/uL (0-1.0); Monocytes % (A) 3 %; Neutrophils # (A) 19.1 k/uL (1.3-7.7); Neutrophils % (A) 86 %; Platelet Count 537 k/uL (150-450); RBC 4.66 m/uL (3.80-5.40); RDW 14.5 % (11.5-15.5); WBC 22.2 k/uL (3.8-10.6)
[2024-04-26] MEDS ORDERED: traZODone HCL 100 MG TAB PO SCH (21:00)
--- NOTE | 2024-04-26 21:34 | HP ---
HISTORY AND PHYSICAL CHIEF COMPLAINT: Intractable right flank pain. HISTORY OF PRESENT ILLNESS: This lady was re-admitted. She just went home several days ago. She was receiving relief of her pain with a stone in her ureter, but failed to seed cone picker any medication. The pain became much more severe and she came back in with nausea and vomiting. REVIEW OF SYSTEMS: She has had no other symptoms including hematuria, fever and chills, etc. Past medical history, family history, and personal and social histories are unchanged. PHYSICAL EXAMINATION: VITAL SIGNS: Normal. HEAD, EARS, EYES, NOSE, MOUTH, AND THROAT: Normal. CHEST: Clear. CARDIAC: Normal. ABDOMEN: She is tender in the right flank as well as in the right lower quadrant. EXTREMITIES: Normal. IMPRESSION: 1. Intractable right flank pain. 2. Impacted right distal ureteral calculus. 3. Dehydration. 4. Nausea and vomiting. PLAN: 1. Bedrest. 2. IV fluids. 3. Antiemetics and analgesics. 4. Urology consult. MMODL / LOLITAN: [id number] /
[2024-04-26] MEDS: ATORVASTATIN 20 MG TAB PO SCH (21:36)
[2024-04-26] MEDS: DIPHENOX-ATROP 2.5-0.025 MG 1 EACH TAB PO SCH (21:36)
[2024-04-26] MEDS: GLIMEPIRIDE 2 MG TAB PO SCH (21:37)
[2024-04-26] MEDS: DULoxetine HCL 30 MG CAPSULE.DR PO SCH (21:37)
[2024-04-26] MEDS: haloperidoL 5 MG TAB PO SCH (21:37)
[2024-04-26] MEDS: LUMATEPERONE TOSYLATE PO SCH (21:37)
[2024-04-26] MEDS: PANTOPRAZOLE 40 MG TABLET PO SCH (21:37)
[2024-04-26] MEDS: metFORMIN 500 MG TAB PO SCH (21:37)
[2024-04-26] MEDS: oxyCODONE-APAP 10-325MG 1 EACH TAB PO SCH (21:43)
[2024-04-26] MEDS: GABAPENTIN 400 MG CAP PO SCH (21:43)
[2024-04-26] MEDS: IBUPROFEN 800 MG TAB PO SCH (21:44)
[2024-04-26] MEDS: SYMBICORT 160-4.5 MCG INHALER INHALATION SCH (23:28)
[2024-04-26] MEDS: IPRATROPIUM 0.5 MG/2.5 ML NEBU INHALATION SCH (23:28)
[2024-04-27] MEDS: HYDROmorphone 0.5 MG/0.5 ML SYRINGE IVP PRN
[2024-04-27 05:56] LABS: Glucose,Whole Blood 152 mg/dL (70-110)
[2024-04-27] MEDS ORDERED: NON FORMULARY DRUG (Fluticasone/Umeclidin/Vilanter [Trelegy Ellipta 200-62.5-25] 1 EACH Bl INHALATION SCH (08:00)
[2024-04-27] MEDS ORDERED: ACETAMINOPHEN TAB 325 MG TAB PO PRN (08:34)
[2024-04-27] MEDS: METOCLOPRAMIDE 5 MG/ML 2 ML VIAL IVP PRN (08:40)
--- NOTE | 2024-04-27 08:48 | P.GSCN ---
History of Present Illness Consult date: 04/27/24 Reason for Consult: Right ureteral calculus Requesting physician: Reggie Denny History of present illness: The patient is a 38-year-old white female who underwent ureteroscopic removal of a 1 cm left renal calculus in January 2024. The calculus was composed predominantly of calcium oxalate dihydrate. She now presents with a 2-day history of nausea, vomiting, and right flank pain. She was admitted with intractable symptoms. Review of Systems - Constitutional Denies chills, Denies fever - Gastrointestinal Reports nausea, Reports vomiting - Genitourinary Genitourinary: Reports flank pain, Reports kidney stones Past Medical History Past Medical History: Asthma, Diabetes Mellitus, GERD/Reflux, Hyperlipidemia, Musculoskeletal Disorder, Osteoarthritis (OA) Additional Past Medical History / Comment(s): IBS, colitis, frequent migraines, PSEUDOTUMOR ON BRAIN, disc problems in lower back. History of Any Multi-Drug Resistant Organisms: None Reported, MRSA Year Discovered:: 2020 MDRO Source:: labia Past Surgical History: Cholecystectomy, Orthopedic Surgery Additional Past Surgical History / Comment(s): ORIF RIGHT HAND, MIRENA INSERTION, pain procedures.COLONOSCOPY/EGD Past Anesthesia/Blood Transfusion Reactions: No Reported Reaction Past Psychological History: Anxiety, Depression, Schizoaffective Disorder Additional Psychological History / Comment(s): States her Schizoaffective Disorder is under control with her medication. Smoking Status: Current some day smoker Past Alcohol Use History: None Reported Additional Past Alcohol Use History / Comment(s): HAS SMOKED 1 PPD SINCE AGE 14. Past Drug Use History: Marijuana Additional Drug Use History / Comment(s): Marijuana use daily. - Past Family History Mother Family Medical History: Unable to Obtain Additional Family Medical History / Comment(s): Patient states does not any history of her family. Medications and Allergies Home Medications Medication Instructions Recorded Confirmed Type Gabapentin 800 mg PO TID 10/02/22 04/26/24 History oxyCODONE-APAP 10-325MG [Percocet 1 tab PO TID 10/02/22 04/26/24 History 10-325 mg] Atorvastatin [Lipitor] 20 mg PO HS 14 Days #14 tab 02/09/23 04/26/24 Rx Albuterol Sulfate [Albuterol 1 - 2 puff INHALATION RT-Q6H PRN 09/30/23 04/26/24 History Sulfate Hfa] Cetirizine HCl 10 mg PO HS 09/30/23 04/26/24 History DULoxetine HCL [Cymbalta] 30 mg PO HS 09/30/23 04/26/24 History Diphenox-Atrop 2.5-0.025 mg 1 tab PO HS 09/30/23 04/26/24 History [Lomotil] Fluticasone/Umeclidin/Vilanter 1 puff INHALATION RT-DAILY 09/30/23 04/26/24 History [Trelegy Ellipta 200-62.5-25] Glimepiride 2 mg PO HS 09/30/23 04/26/24 History Lumateperone Tosylate [Caplyta] 10.5 mg PO HS 09/30/23 04/26/24 History Metoclopramide HCl [Reglan] 10 mg PO HS 09/30/23 04/26/24 History Omeprazole 40 mg PO HS 09/30/23 04/26/24 History haloperidoL 10 mg PO HS 09/30/23 04/26/24 History metFORMIN HCL [Glucophage] 500 mg PO HS 09/30/23 04/26/24 History EPINEPHrine (Auto Inject) [Epipen] 0.3 mg IM ONCE PRN 11/05/23 04/26/24 History Ibuprofen [Motrin] 800 mg PO TID 11/05/23 04/26/24 History Ondansetron Odt [Zofran ODT] 8 mg PO BID PRN 11/05/23 04/26/24 History Ubrogepant [Ubrelvy] 50 mg PO DAILY PRN 11/05/23 04/26/24 History HYDROcodone/APAP 5-325MG [[place] 1 tab PO Q6HR PRN 3 Days #12 tab 04/26/24 04/26/24 Rx 5-325] Ketorolac [Toradol] 10 mg PO Q6HR #30 tab 04/26/24 Rx Metoclopramide [Reglan] 10 mg PO TID PRN #15 tab 04/26/24 Rx Ondansetron Odt [Zofran Odt] 4 mg PO Q8HR PRN #12 tab 04/26/24 04/26/24 Rx Tamsulosin [Flomax] 0.4 mg PO DAILY #10 cap 04/26/24 Rx Allergies Allergy/AdvReac Type Severity Reaction Status Date / Time Iodinated Contrast Media Allergy Anaphylaxis Verified 04/26/24 20:00 [Iodinated Contrast Media - Oral and] latex Allergy Rash/Hives Verified 04/26/24 20:00 shellfish derived [Shellfish] Allergy Anaphylaxis Verified 04/26/24 20:00 dulaglutide [From Trulicity] AdvReac Nausea & Verified 04/26/24 20:00 Vomiting mirtazapine [From Remeron] AdvReac Hallucinati Verified 04/26/24 20:00 ons semaglutide [From Ozempic] AdvReac Nausea & Verified 04/26/24 20:00 Vomiting Surgical - Exam Vital Signs Temp Pulse Resp BP Pulse Ox 97.3 F L 72 20 149/106 97 04/26/24 14:58 04/26/24 14:58 04/26/24 14:58 04/26/24 14:58 04/26/24 14:58 - General well developed, well nourished, moderate distress - Respiratory normal respiratory effort - Abdomen Soft, non-distended. Mild right lower quadrant tenderness, no guarding or rebound. - Psychiatric oriented to time, oriented to person, oriented to place, speech is normal, memory intact Results - Labs 04/26/24 20:08 04/26/24 20:08 Abnormal Lab Results - Last 24 Hours (Table) 04/26/24 04/26/24 04/27/24 Range/Units 20:08 20:08 05:54 WBC 22.2 H (3.8-10.6) k/uL Plt Count 537 H (150-450) k/uL Neutrophils # 19.1 H (1.3-7.7) k/uL BUN 6 L (7-17) mg/dL Creatinine 0.40 L (0.52-1.04) mg/dL Glucose 180 H (74-99) mg/dL POC Glucose (mg/dL) 152 H (70-110) mg/dL Magnesium 1.5 L (1.6-2.3) mg/dL ALT 39 H (4-34) U/L Diabetes panel 04/26/24 Range/Units 20:08 Sodium 138 (137-145) mmol/L Potassium 3.9 (3.5-5.1) mmol/L Chloride 100 (98-107) mmol/L Carbon Dioxide 25 (22-30) mmol/L BUN 6 L (7-17) mg/dL Creatinine 0.40 L (0.52-1.04) mg/dL Glucose 180 H (74-99) mg/dL Calcium 9.6 (8.4-10.2) mg/dL AST 30 (14-36) U/L ALT 39 H (4-34) U/L Alkaline Phosphatase 105 (38-126) U/L Total Protein 7.2 (6.3-8.2) g/dL Albumin 4.3 (3.5-5.0) g/dL Calcium panel 04/26/24 Range/Units 20:08 Calcium 9.6 (8.4-10.2) mg/dL Albumin 4.3 (3.5-5.0) g/dL Pituitary panel 04/26/24 Range/Units 20:08 Sodium 138 (137-145) mmol/L Potassium 3.9 (3.5-5.1) mmol/L Chloride 100 (98-107) mmol/L Carbon Dioxide 25 (22-30) mmol/L BUN 6 L (7-17) mg/dL Creatinine 0.40 L (0.52-1.04) mg/dL Glucose 180 H (74-99) mg/dL Calcium 9.6 (8.4-10.2) mg/dL Adrenal panel 04/26/24 Range/Units 20:08 Sodium 138 (137-145) mmol/L Potassium 3.9 (3.5-5.1) mmol/L Chloride 100 (98-107) mmol/L Carbon Dioxide 25 (22-30) mmol/L BUN 6 L (7-17) mg/dL Creatinine 0.40 L (0.52-1.04) mg/dL Glucose 180 H (74-99) mg/dL Calcium 9.6 (8.4-10.2) mg/dL Total Bilirubin 0.4 (0.2-1.3) mg/dL AST 30 (14-36) U/L ALT 39 H (4-34) U/L Alkaline Phosphatase 105 (38-126) U/L Total Protein 7.2 (6.3-8.2) g/dL Albumin 4.3 (3.5-5.0) g/dL - Imaging CT scan - abdomen: report reviewed, image reviewed Assessment and Plan (1) Calculus of ureter Current Visit: Yes Status: Acute Code(s): N20.1 - CALCULUS OF URETER SNOMED Code(s): 88899681 Plan: I explained to Ms. Mccoy that she has right renal colic due to a 2 mm right distal ureteral calculus. The calculus has a very high likelihood of spontaneous passage, and in view of this I hope to avoid the need for surgery. I have ordered tamsulosin, and her urine will be strained. She will continue to receive IV hydration, along with analgesics and antiemetics as needed. Ureteroscopic removal of the calculus will be recommended if her symptoms fail to improve. Time with Patient: Greater than 30
[2024-04-27] MEDS ORDERED: ONDANSETRON ODT 4 MG TAB PO PRN (10:59)
[2024-04-27 11:55] LABS: Glucose,Whole Blood 172 mg/dL (70-110)
[2024-04-27] MEDS: TAMSULOSIN 0.4 MG CAP.ER.24H PO SCH (12:09)
[2024-04-27 17:27] LABS: Glucose,Whole Blood 140 mg/dL (70-110)
[2024-04-27 19:48] LABS: Glucose,Whole Blood 99 mg/dL (70-110)
[2024-04-27] MEDS: METOCLOPRAMIDE 10 MG TAB PO SCH (20:23)
[2024-04-28 05:53] LABS: Glucose,Whole Blood 147 mg/dL (70-110)
--- NOTE | 2024-04-28 09:32 | P.PN ---
Subjective Progress Note Date: 04/28/24 Principal diagnosis: Right renal colic The patient states that her flank pain is improved. Her primary complaint at this time is a severe headache. Objective - Vital Signs Vital signs: Vital Signs Temp 98.0 F 04/28/24 02:00 Pulse 71 04/28/24 02:00 Resp 18 04/28/24 02:00 BP 115/73 04/28/24 02:00 Pulse Ox 93 L 04/28/24 02:00 FiO2 Intake & Output 04/27/24 04/28/24 04/28/24 18:59 06:59 18:59 Intake Total 237 Output Total 300 Balance -300 237 Intake: Oral 237 Output: Urine 300 Other: Voiding Method Toilet Toilet # Voids 2 - Constitutional General appearance: Present: average body habitus, cooperative, mild distress - Psychiatric Psychiatric: Present: A&O x's 3 - Labs CBC & Chem 7: 04/26/24 20:08 04/26/24 20:08 Labs: Abnormal Lab Results - Last 24 Hours (Table) 04/27/24 04/27/24 04/28/24 Range/Units 11:54 17:26 05:52 POC Glucose (mg/dL) 172 H 140 H 147 H (70-110) mg/dL Assessment and Plan (1) Calculus of ureter Current Visit: Yes Status: Acute Code(s): N20.1 - CALCULUS OF URETER SNOMED Code(s): 94354035 Plan: I explained to Ms. Mccoy that her calculus has a very high likelihood of spontaneous passage, and in view of this I hope to avoid the need for surgery. She is receiving tamsulosin, and her urine is being strained. She is agreeable to medical expulsion therapy and hopes to be discharged home today. She will follow-up with Dr. Hager as an outpatient.
--- NOTE | 2024-04-28 11:19 | PN ---
PROGRESS NOTE DATE OF SERVICE: 04/27/2024 CHIEF COMPLAINT: Right ureteral calculus. HISTORY OF PRESENT ILLNESS: This lady is still having quite a bit of pain on the right flank and right lower quadrant. She is being followed by Urology. PHYSICAL EXAMINATION: VITAL SIGNS: Normal. CHEST: Clear. CARDIAC: Normal. ABDOMEN: Soft, nontender. IMPRESSION: Right distal ureteral calculus with renal colic. PLAN: 1. Increase analgesics. 2. Flomax. 3. IV fluids. MMODL / IJN: [id number] /
[2024-04-28 12:20] LABS: Glucose,Whole Blood 143 mg/dL (70-110)
[2024-04-28 17:14] VITALS: BP 154/82; PULSE 75; RESP 18; TEMP 97.6
--- NOTE | 2024-04-28 20:16 | DS ---
DISCHARGE SUMMARY CHIEF COMPLAINT: Right flank and right lower quadrant pain. HISTORY OF PRESENT ILLNESS AND PHYSICAL EXAMINATION: Details of this lady's history and physical can be found in the initial workup. LABORATORY STUDIES: While she was in the hospital, she had laboratory studies, details of which can be found in the laboratory section of her chart. COURSE IN THE HOSPITAL: After admission, she was placed on bedrest, started on intravenous fluids and analgesics. She was seen by Urology. It was hoped that the stone would pass. She was more comfortable and Neurology agreed that she could go home and this time she will pharmacy picking tech and take the Flomax. She will be seen in the office in several days. FINAL DIAGNOSES: 1. Right renal colic. 2. Right ureteral calculus. 3. Recent left ureteral calculus. OPERATIONS: None. CONSULTATIONS: Urology. LISA / KRISTAL: [id number] /
== END 2024-04-28 16:38 | disposition home or self-care (01) ==
LOC: EC 14:56 → 6NMEDSUR 19:38
PROVIDERS: ADMIT Family Medicine; ATTEND Family Medicine
DX: N20.1 Calculus of ureter (principal); E86.0 Dehydration; E11.9 Type 2 diabetes mellitus without complications; E66.01 Morbid (severe) obesity due to excess calories; Z68.38 Body mass index [BMI] 38.0-38.9, adult; F17.200 Nicotine dependence, unspecified, uncomplicated; Z79.84 Long term (current) use of oral hypoglycemic drugs; Z79.51 Long term (current) use of inhaled steroids; Z79.899 Other long term (current) drug therapy; Z88.8 Allergy status to other drugs, medicaments and biological substances; Z91.041 Radiographic dye allergy status; Z91.040 Latex allergy status; Z91.013 Allergy to seafood
CPT/HCPCS: 96376 ×3; 96361 ×3; 96374; 96375; 99285; 93005; 80053; 83735; 85025; G0378 ×3; J0780; J2765 ×3; J2405 ×3; J1885; S0119; J1171 ×3